=== PATIENT | female | born 1945 | race Caucasian/White ===

== ENCOUNTER 2025-03-10 08:26 | Inpatient (IN) | payer MEDICARE, SELFPAY ==
[2025-03-10] VITALS (7 sets, daily range): BP systolic 116–138; BP diastolic 64–84; PULSE 70–94; RESP 16–22; TEMP 36.1–36.9; O2SAT 96–100; BMI 19.2; BMI 21.7
--- NOTE | 2025-03-10 08:44 | PD.EDRME ---
Rapid Medical Screening Exam RME Arrival date/time: 03/10/25 08:26 80-year-old female with a history of hypertension presents to the emergency room with a chief complaint of vomiting and a loss of 25 pounds in the last month. Patient was sent over by her primary care provider. I have greeted and performed a focused initial assessment of this patient. A comprehensive ED assessment and evaluation of the patient, analysis of all test results, and completion of the medical decision making process will be conducted by additional ED providers. Chief Complaint: Nausea/Vomiting/Diarrhea Time Seen by Provider: 03/10/25 08:29 Vital signs: Vital Signs Temperature 97.9 F 03/10/25 08:38 Pulse Rate 94 03/10/25 08:38 Respiratory Rate 18 03/10/25 08:38 Blood Pressure 116/64 03/10/25 08:38 Pulse Oximetry (%) 100 03/10/25 08:38 Oxygen Delivery Method Room Air 03/10/25 08:38 Vital signs reviewed by provider: Yes
[2025-03-10] MEDS: ONDANSETRON ODT 4 MG TABRAP PO (09:04)
[2025-03-10 10:05] LABS: Basophils # (Auto) 0.1 Thou/mm3 (0.0-0.2); Basophils % (Auto) 1 % (0-2.5); Eosinophils # (Auto) 0.3 Thou/mm3 (0.0-0.5); Eosinophils % (Auto) 5 % (0-10); Hemoglobin 12.5 g/dL (12.0-16.0); Immature Granulocytes % (Auto) 0 % (0-0); Immature Granulocytes Auto 0.02 Thou/mm3 (0.00-0.00); Lymphocytes # (Auto) 2.2 Thou/mm3 (1.0-4.8); Lymphocytes % (Auto) 31 % (10-50); Mean Corpuscular HGB Conc 34.7 g/dl (31.0-37.0); Mean Corpuscular Hemoglobin 32.1 pg (25.0-35.0); Mean Corpuscular Volume 92 fL (80-100); Monocytes # (Auto) 0.4 Thou/mm3 (0.0-0.8); Monocytes % (Auto) 6 % (0-12); Neutrophils # (Auto) 4.1 Thou/mm3 (1.8-7.7); Neutrophils % (Auto) 57 % (37-80); Nucleated Red Blood Cell % 0 /100 WBC (0); Platelet Count 284 Thou/mm3 (140-440); RDW Standard Deviation 39.8 fL (36.4-46.3); White Blood Count 7.1 Thou/mm3 (3.6-11.0)
[2025-03-10 10:11] LABS: Alanine Aminotransferase 14 U/L (10-49); Albumin, Serum 4.6 gm/dL (3.4-4.8); Albumin/Globulin Ratio 1.8 (1.2-2.2); Alkaline Phosphatase 65 U/L (46-116); Amylase 27 U/L (30-118); Anion Gap 15 (7-16); Aspartate Amino Transferase 21 U/L (0-34); BUN/Creatinine Ratio 15 Ratio (12-20); Bilirubin,Total 0.6 mg/dL (0.3-1.2); Blood Urea Nitrogen 38 mg/dL (9-23); Calcium 9.7 mg/dL (8.3-10.6); Calcium (Corrected) 9.7 mg/dL (8.5-10.1); Carbon Dioxide 24.3 mMol/L (20.0-31.0); Chloride 104 mMol/L (98-107); Creatinine (Component) 2.5 mg/dL (0.6-1.3); Estimated Creatinine Clearance 15.3 mL/min (>60); Globulin 2.6 gm/dL (2.3-3.5); Glucose 110 mg/dL (74-106); Lipase 34 U/L (12-53); Osmolality,Calculated 294 (275-295); Potassium 3.3 mMol/L (3.4-5.1); Sodium 143 mMol/L (136-145); Total Protein 7.2 gm/dL (5.7-8.2); eGFR 19 See Note
--- NOTE | 2025-03-10 10:16 | XR_ITS ---
Examination: CT chest, without intravenous contrast. CT abdomen, without intravenous contrast. CT pelvis, without intravenous contrast. 2-D sagittal and coronal reconstructions. 3-D reconstructions. Date and time of exam:March 10, 2025 1244 hours INDICATIONS: Vomiting with weight loss beginning one month ago CTDI vol (mgy) 6.60 DLP (MGycm)142 Technique: Multiple CT images, 3.0 mm slice thickness, obtained chest, abdomen, pelvis, with the high-resolution 64 slice scanner.. Sagittal and coronal 2-D reconstructions are obtained. 3-D reconstructions Low dose protocols were performed. One or more of the following dose reduction techniques were used; automated exposure control, adjustment of the mA and/or KV according to patient size, use of iterative reconstruction technique. Findings: No thoracic aortic aneurysm dilatation Pulmonary artery segments are not enlarged Contrast is present in the distal esophagus with retrocardiac gastric hernia No paratracheal tracheobronchial or bronchopulmonary adenopathy COPD with areas of airspace destruction At least 6 soft noncalcified pulmonary nodules throughout the lungs, the largest 4 mm in the left lower lobe image 226 No lobar pneumonia or pulmonary edema No visualized liver or splenic lesion Small pancreatic calcifications No gallstones No adrenal mass No renal or ureteral calculi, no hydronephrosis Abdominal aortic calcification no aneurysmal dilatation Normal appendix No bowel obstruction or diverticulitis Absent uterus No pelvic mass Intact urinary bladder Severe osteopenia Transpedicular lumbar fusion L3-S1 with anatomic alignment Advanced degenerative disc disease above the fusion site, L2-L3 IMPRESSION: At least 6 soft noncalcified pulmonary nodules throughout both lungs, with this study as baseline recommend 6 month follow-up CT chest without contrast to exclude early pulmonary nodular metastatic disease No mediastinal lymphadenopathy No pneumonia, pulmonary edema or pleural disease Suspicious for reflux esophagitis Small pancreatic calcifications, seen with prior episodes of pancreatitis No renal or ureteral calculi, no hydronephrosis No CT findings of appendicitis bowel obstruction or diverticulitis Advanced degenerative disc disease L2-L3
--- NOTE | 2025-03-10 10:29 | PD.EDNV ---
Nausea/Vomit./Diarrhea-RME/HPI General Chief complaint: Nausea/Vomiting/Diarrhea Stated complaint: N/V, WEIGHT LOSS Time Seen by Provider: 03/10/25 08:29 Arrival date/time: 03/10/25 08:26 Limitations: no limitations RME / HPI RME / HPI Narrative: 03/10/25 08:26 80-year-old female with a history of hypertension presents to the emergency room with a chief complaint of vomiting and a loss of 25 pounds in the last month. Patient was sent over by her primary care provider. I have greeted and performed a focused initial assessment of this patient. A comprehensive ED assessment and evaluation of the patient, analysis of all test results, and completion of the medical decision making process will be conducted by additional ED providers. DR. DOMINGUEZ MAIN ED EVALUATION: 80 year old female with history of hypertension presents to the ED sent by PCP Dr. Santos for further evaluation of persistent nausea and vomiting. Reports that the nausea and vomiting have been ongoing for several months, initially occurring 1-2 times per day. However, in the past week states she is now vomiting day and night . States she typically will vomit several minutes after eating, regardless of the type of food, and in the past few weeks, she has been able to tolerate only Ensure and ice cream. Additionally reports unintentional weight loss of approximately 25 pounds over the last few months. Patient stated her PCP has planned for an EGD, though this has not yet been performed. Denies any associated abdominal pain, fever. She has no history of similar symptoms in the past, and there is no significant GI history. Related Data Home Medications ?Medication ?Instructions ?Recorded ?Confirmed cholecalciferol (vitamin D3) 25 1 tab PO QDAY #0 tabs 05/23/15 08/30/18 mcg (1,000 unit) capsule (Vitamin D3) conjugated estrogens 1.25 mg 1.2 tab PO QDAY ##30 05/23/15 08/30/18 tablet (Premarin) ibuprofen 800 mg tablet 1 tab PO TID ##90 05/23/15 08/30/18 lisinopril 10 mg tablet 10 tab PO QDAY ##30 05/23/15 08/30/18 vitamin E 268 mg (400 unit) capsule 1 tab PO QDAY #0 caps 05/23/15 08/30/18 aspirin 81 mg tablet,delayed 81 mg PO DAILY 08/24/18 08/30/18 release hydrocodone 7.5 mg-acetaminophen 7.5 tab PO 5 TIMES DAILY 08/24/18 08/30/18 325 mg tablet triamterene 37.5 25 mg PO DAILY 08/24/18 08/30/18 mg-hydrochlorothiazide 25 mg tablet (Maxzide-25mg) Allergies Allergy/AdvReac Type Severity Reaction Status Date / Time No Known Allergies Allergy Verified 08/30/18 11:34 Review of Systems Review of Systems Systems Reviewed: All systems reviewed, normal except as documented Past Medical History Past Medical History NEUROLOGIC: Positive Neurological Disorders and Migraine CARDIAC: Positive Edema and Hypertension REPRODUCTIVE: Positive Previous Pregnancies (1) MUSCULOSKELETAL: Positive Musculoskeletal Disorders and Arthritis PSYCHO/SOCIAL: Positive Depression and Anxiety OTHER HISTORY: Positive Falls, Chicken Pox, Measles, Mumps and Pertussis Family History FAMILY HISTORY: Positive Family Respiratory Disorders (brother-COPD) and Family Surgery (sisters-hysterectomy; sister hip replaced) Surgical History SURGICAL: Positive Tonsillectomy, Abdominal Surgery, Lumpectomy (several in s) and Hysterectomy Social History SMOKING STATUS: Current every day smoker ED Exam General Limitations: Present no limitations General appearance: Present alert and in no apparent distress Head Head exam: Present atraumatic, normocephalic and normal inspection Eye Eye exam: Present normal appearance, PERRL and EOMI ENT ENT exam: Present normal exam, normal oropharynx and mucous membranes moist Neck Neck exam: Present normal inspection, full ROM and trachea midline Chest Chest inspection: Present normal inspection and symmetric chest wall rise Respiratory Respiratory exam: Present normal lung sounds bilaterally Cardiovascular Cardiovascular exam: Present regular rate, normal rhythm and normal heart sounds Abdominal Exam Abdominal exam: Present soft, normal bowel sounds and other (Loose adipose tissue on abdomen consistent with weight loss ) Extremities Exam Extremities exam: Present normal inspection and full ROM Back Exam Back exam: Present normal inspection and full ROM Neurological Exam Neurological exam: Present alert, oriented X3 and CN II-XII intact Psychiatric Psychiatric exam: Present normal affect and normal mood Skin Skin exam: Present warm, dry, intact and normal color Course Quality Measures none Orders Category Date Time Status CT Screening NOW Care 03/10/25 09:03 Active IV [Insert IV] NOW Care 03/10/25 09:[address] chest abdomen pelvis wo Stat Exams 03/10/25 10:16 Completed Amylase Stat Lab 03/10/25 09:37 Completed CBC Stat Lab 03/10/25 09:37 Completed CMP [Comprehensive Metabolic Panel] Stat Lab 03/10/25 09:37 Completed Lipase Stat Lab 03/10/25 09:37 Completed UA [Urinalysis] Stat Lab 03/10/25 08:44 Ordered Urine Culture Stat Lab 03/10/25 08:44 Ordered Ondansetron Inj [Zofran Inj] Med 03/10/25 09:49 Discontinued 4 mg IV X1 ONE Ondansetron Odt [Zofran Odt] Med 03/10/25 08:44 Discontinued 4 mg PO X1 ONE Vital Signs Vital signs: Vital Signs Temperature 97.9 F 03/10/25 08:38 Pulse Rate 94 03/10/25 08:38 Respiratory Rate 18 03/10/25 08:38 Blood Pressure 116/64 03/10/25 08:38 Pulse Oximetry (%) 100 03/10/25 08:38 Oxygen Delivery Method Room Air 03/10/25 08:38 Pulse ox is 100% on room air which is adequate. Nausea/Vomiting/Diarrhea MDM Narrative MDM Narrative:: Yulisa Fortune am scribing for and in the presence of Dr. Dominguez. Patient data External records reviewed:: [facility] previous records Clinical information provided by:: patient Social determinants that could affect healthcare access:: none Patient has the following chronic illnesses:: Hypertension How is presenting disease/condition affected by chronic disease/condition?: uneffected by Evaluation data The following diagnostics were reviewed and interpreted by me:: lab results and radiology exam(s) Lab and/or radiology exams considered but not ordered:: None Interpretation Summary: Ordering Physician: Hadley Dominguez MD Date of Service: 03/10/25 Procedure(s): CT chest abdomen pelvis wo Accession Number(s): [id number] cc: Hadley Dominguez MD; Janes Younger MD; Zeus Santos MD~ Examination: CT chest, without intravenous contrast. CT abdomen, without intravenous contrast. CT pelvis, without intravenous contrast. 2-D sagittal and coronal reconstructions. 3-D reconstructions. Date and time of exam:March 10, 2025 1244 hours INDICATIONS: Vomiting with weight loss beginning one month ago CTDI vol (mgy) 6.60 DLP (MGycm)142 Technique: Multiple CT images, 3.0 mm slice thickness, obtained chest, abdomen, pelvis, with the high-resolution 64 slice scanner.. Sagittal and coronal 2-D reconstructions are obtained. 3-D reconstructions Low dose protocols were performed. One or more of the following dose reduction techniques were used; automated exposure control, adjustment of the mA and/or KV according to patient size, use of iterative reconstruction technique. Findings: No thoracic aortic aneurysm dilatation Pulmonary artery segments are not enlarged Contrast is present in the distal esophagus with retrocardiac gastric hernia No paratracheal tracheobronchial or bronchopulmonary adenopathy COPD with areas of airspace destruction At least 6 soft noncalcified pulmonary nodules throughout the lungs, the largest 4 mm in the left lower lobe image 226 No lobar pneumonia or pulmonary edema No visualized liver or splenic lesion Small pancreatic calcifications No gallstones No adrenal mass No renal or ureteral calculi, no hydronephrosis Abdominal aortic calcification no aneurysmal dilatation Normal appendix No bowel obstruction or diverticulitis Absent uterus No pelvic mass Intact urinary bladder Severe osteopenia Transpedicular lumbar fusion L3-S1 with anatomic alignment Advanced degenerative disc disease above the fusion site, L2-L3 IMPRESSION: At least 6 soft noncalcified pulmonary nodules throughout both lungs, with this study as baseline recommend 6 month follow-up CT chest without contrast to exclude early pulmonary nodular metastatic disease No mediastinal lymphadenopathy No pneumonia, pulmonary edema or pleural disease Suspicious for reflux esophagitis Small pancreatic calcifications, seen with prior episodes of pancreatitis No renal or ureteral calculi, no hydronephrosis No CT findings of appendicitis bowel obstruction or diverticulitis Advanced degenerative disc disease L2-L3 Dictated By: Janes Younger MD Signed By: <Electronically signed by Janes Younger MD in OV> 03/10/25 1318 Medications / Prescriptions Medications / Prescriptions considered but not ordered:: None Medication administrations:: Medication Administration History Discontinued Medications Ondansetron HCl (Ondansetron Odt 4 Mg Tabrap) 4 mg PO X1 ONE; Protocol Stop: 03/10/25 08:45 Last Admin: 03/10/25 09:04 Dose: 4 mg Documented By: VG Ondansetron HCl (Ondansetron Inj 2 Mg/Ml Inj 2 Ml) 4 mg IV X1 ONE; Protocol Stop: 03/10/25 09:50 Last Admin: 03/10/25 10:37 Dose: 4 mg Documented By: DO See above Consultations Consultation(s) initiated? (list below): Yes Consultation #1 (Physician, Specialty, Details): I spoke with system support specialist Dr. Patterson. Discussed patients PMHx, HPI, ED course, exam findings, labs, and radiology results. She agrees to consult. Consultation #2 (Physician, Specialty, Details): I spoke with resident working with Dr. Mendes regarding admission. Discussed patients PMHx, HPI, ED course, exam findings, labs, and radiology results. The hospitalist agree to accept the patient for admission. Diagnosis Nausea Differential Diagnosis: drug-induced nausea and vomiting, dehydration and other (GERD, gastritis ) Most likely diagnosis given after review of the tests above:: Renal insufficiency Nausea and vomiting Hypokalemia Unintentional weight loss Admission Indicated Admission indicated?: indicated Admission Request Was there a request for admission?: Yes Admission Attestation Admission request attestation: Discussed case with [] from Hospitalist service regarding admission. Discussed patients ED course, exam findings, labs, and radiology results. The Hospitalist [agrees,declines] to accept the patient for admission. Disposition Plan Disposition Plan: Admit Discharge Plan Plan Patient Disposition: Admit Acute Care w/in Hospital Prescriptions/Referrals Prescriptions/Med Rec: No Action ibuprofen 800 MG tablet 1 tab PO TID Qty: 90 lisinopril 10 MG tablet 10 tab PO QDAY Qty: 30 conjugated estrogens [Premarin] 1.25 MG tablet 1.2 tab PO QDAY Qty: 30 vitamin E 400 UNIT capsule 1 tab PO QDAY Qty: 0 cholecalciferol (vitamin D3) [Vitamin D3] 1,000 UNIT tablet 1 tab PO QDAY Qty: 0 aspirin 81 mg Tablet,Delayed Release (Dr/Ec) 81 mg PO DAILY hydrocodone-acetaminophen 7.5-325 mg Tablet 7.5 tab PO 5 TIMES DAILY triamterene-hydrochlorothiazid [Maxzide-25mg] 37.5-25 mg Tablet 25 mg PO DAILY Referrals: Zeus Santos MD [Primary Care Provider] - In 1 week Problem List Clinical Impression: Renal insufficiency, Hypokalemia, Nausea & vomiting, Unintentional weight loss Patient/Caregiver Discharge Instructions Print Language: Grenadian Stand Alone Forms: Jodi Award Info., Patient Portal Info Letter
[2025-03-10] MEDS: ONDANSETRON INJ 2 MG/ML INJ 2 ML 4 MG IV ×2 (10:37→20:38)
--- NOTE | 2025-03-10 14:31 | PC.NURSE ---
DR SHORT IN ROOM TO SPEAK WITH PT
--- NOTE | 2025-03-10 16:35 | PC.NURSE ---
HOSPITALIST AT BEDSIDE
--- NOTE | 2025-03-10 16:51 | PD.RESHP ---
Documentation for date of: 03/10/25 HPI History of Present Illness History of present illness: Oliva Marc is an 80-year-old female with a past medical history of hypertension, chronic pain, MDD, and on hormone replacement therapy who presents on 03/10 for intractable nausea and vomiting. Patient states that approximately 2 to 3 months ago she started to experience occasional nausea and vomiting that was not associated with any alleviating or aggravating factors, as it would happen after and in between meals but appears to be more associated with meals. It has since progressed to the point that she was previously able to tolerate solids and is now experiencing symptoms with water. Emesis is nonbloody, nonbilious, occurs multiple times a day and patient states she has lost approximately 30 pounds (150 pounds in September, now 120 pounds in February) over the course of 6 months. She denies difficulty swallowing, pain with swallowing, abdominal pain, diarrhea, constipation, dark stools, dyspepsia, or feeling that her food gets stuck after attempting to eat meals but does endorse some lightheadedness. Of note, she has been taking ibuprofen 800 mg at night for the last 4 to 5 years for back pain as her most recent back surgery was in 2018. In the ED, vital signs stable, CBC unremarkable, CHEM panel showed hypokalemia (3.3), BUN 38, creatinine 2.5, GFR 19, amylase and lipase normal. CT C/A/P: At least 6 noncalcified pulmonary nodules throughout both lungs (recommend 6-month follow-up CT chest without contrast), suspicious for reflux esophagitis, small pancreatic calcifications, advanced degenerative disc disease in L2 and L3. Admitted for management of intractable nausea and vomiting, MANAV, and GI consult for EGD. PMHx: hypertension, chronic pain, MDD, and on hormone replacement therapy Medications: Aspirin 81 mg, estradiol, lisinopril 10 mg, ibuprofen 800 mg, Xanax 0.5 mg at night FHx: Denies family history of cancer SHx: 19-wwbh-hezs smoking history now transition to vaping, denies significant alcohol consumption, denies illicit drug use PSHx: 2 back surgeries (2014, 2018), hysterectomy in 1976 Review of Systems Review of Systems Systems Reviewed: All systems reviewed, normal except as documented Exam Vital Signs Temp Pulse Resp BP Pulse Ox O2 Del Method 98.1 F 85 17 129/84 97 Room Air 03/10/25 16:19 03/10/25 16:19 03/10/25 16:19 03/10/25 16:19 03/10/25 16:19 03/10/25 16:19 Narrative Exam General: AOx3, no acute distress, able to speak full sentences HEENT: NC/AT, mucous membranes moist, bilateral sclera anicteric Cardiovascular: regular rate and rhythm, S1/S2 present, no murmurs appreciated Pulmonary: clear to auscultation bilaterally, no rales/rhonchi/wheezes Abdominal: soft, non-tender, non-distended, no rebound/guarding, normal bowel sounds present Musculoskeletal: normal ROM, no peripheral edema Skin: warm and dry, intact, no rashes Neuro: CN II-XII intact, no focal deficits Results: Labs 03/11/25 04:57 03/11/25 04:57 Labs: Short CBC 03/10/25 Range/Units 09:37 WBC 7.1 (3.6-11.0) Thou/mm3 Hgb 12.5 (12.0-16.0) g/dL Hct 36.0 (36.0-46.0) % Plt Count 284 (140-440) Thou/mm3 BMP 03/10/25 09:37 Sodium 143 Potassium 3.3 L Chloride 104 Carbon Dioxide 24.3 BUN 38 H Creatinine 2.5 H Glucose 110 H Calcium 9.7 Liver Function 03/10/25 Range/Units 09:37 Total Bilirubin 0.6 (0.3-1.2) mg/dL AST 21 (0-34) U/L ALT 14 (10-49) U/L Alkaline Phosphatase 65 (46-116) U/L Albumin 4.6 (3.4-4.8) gm/dL Quality Measures Quality Measures none Advance care planning discussed with:: patient Medications Home Medications and Allergies Home Medications ?Medication ?Instructions ?Recorded ?Confirmed ?Type cholecalciferol (vitamin D3) 25 1 tab PO QDAY #0 tabs 05/23/15 08/30/18 History mcg (1,000 unit) capsule (Vitamin D3) conjugated estrogens 1.25 mg 1.2 tab PO QDAY ##30 05/23/15 08/30/18 History tablet (Premarin) ibuprofen 800 mg tablet 1 tab PO TID ##90 05/23/15 08/30/18 History lisinopril 10 mg tablet 10 tab PO QDAY ##30 05/23/15 08/30/18 History vitamin E 268 mg (400 unit) capsule 1 tab PO QDAY #0 caps 05/23/15 08/30/18 History aspirin 81 mg tablet,delayed 81 mg PO DAILY 08/24/18 08/30/18 History release hydrocodone 7.5 mg-acetaminophen 7.5 tab PO 5 TIMES DAILY 08/24/18 08/30/18 History 325 mg tablet triamterene 37.5 25 mg PO DAILY 08/24/18 08/30/18 History mg-hydrochlorothiazide 25 mg tablet (Maxzide-25mg) alprazolam 0.5 mg tablet mg 03/10/25 History estradiol 2 mg tablet mg 03/10/25 History fluoxetine 20 mg capsule mg 03/10/25 History Allergies Allergy/AdvReac Type Severity Reaction Status Date / Time No Known Allergies Allergy Verified 08/30/18 11:34 Visit Medications Acetaminophen (Acetaminophen 325 Mg Tablet) 650 mg PO Q6H PRN PRN Reason: PAIN 1-3 OR FEVER > 100.4 Stop: 04/09/25 16:40 Heparin Sodium (Porcine) (Heparin Sod Inj 5000 Unit/Ml Vial) 5,000 unit SC BID [facility] Stop: 03/24/25 20:59 Lactated Ringer's (Lactated Ringers) 1,000 mls @ 75 mls/hr IV .[id number] [facility] Stop: 04/09/25 16:44 Ondansetron HCl (Ondansetron Inj 2 Mg/Ml Inj 2 Ml) 4 mg IV Q6H PRN; Protocol PRN Reason: NAUSEA OR VOMITING Stop: 04/09/25 16:40 Pantoprazole Sodium (Pantoprazole 40 Mg Tablet) 40 mg PO QDAY TONI Stop: 04/09/25 16:44 Potassium Chloride (Potassium Chloride 20 Meq Tabcr) 40 meq PO X1 ONE Stop: 03/10/25 16:51 Discontinued Medications Ondansetron HCl (Ondansetron Odt 4 Mg Tabrap) 4 mg PO X1 ONE; Protocol Stop: 03/10/25 08:45 Last Admin: 03/10/25 09:04 Dose: 4 mg Ondansetron HCl (Ondansetron Inj 2 Mg/Ml Inj 2 Ml) 4 mg IV X1 ONE; Protocol Stop: 03/10/25 09:50 Last Admin: 03/10/25 10:37 Dose: 4 mg Assessment & Plan Plan Oliva Marc is an 80-year-old female with a past medical history of hypertension, chronic pain, MDD, and on hormone replacement therapy who presents on 03/10 for intractable nausea and vomiting x2-3 months with associated 30 lb weight loss. Admitted for management of intractable nausea and vomiting, MANAV, and GI consult for EGD. #Intractable nausea and vomiting #? Achalasia vs peptic ulcer disease vs stricture vs Barretts vs mass effect vs gastric hernia Presents with intractable nausea and vomiting x2-3 months that progressed over time that happens mostly with meals but can happen in between. Previously able to tolerate solids but now cannot tolerate water and has had an associated 30 lb weight loss. Emesis is nonbloody, nonbilious, occurs multiple times a day. Denies difficulty swallowing, pain with swallowing, abdominal pain, diarrhea, constipation, dark stools, dyspepsia, or feeling that her food gets stuck after attempting to eat meals but does endorse some lightheadedness. Of note, she has been taking ibuprofen 800 mg at night for the last 4 to 5 years for back pain as her most recent back surgery was in 2018. ? GI consutled for endoscopy for evaluation, appreciate recommendations ? Zofran 4 mg IV every 6 hours as needed ? Pantoprazole 40 mg p.o. daily #Acute kidney injury, likely prerenal in setting of intractable N/V Admitted with creatinine of 2.5 (baseline 0.9-1.0), BUN 38, GFR 19. ? LR at 75 cc/hr ? Avoid nephrotoxic agents and renally dose medications #Hyperkalemia Likely in setting of dehydration and RAAS activation ? Repleted with 40 mEq ? Follow AM labs and replete as needed #History of hypertension ? Holding home rx of lisinopril and triamterene-HCTZ given MANAV #Chronic pain ? Holding ibuprofen given MANAV ? Oxycodone as needed #Depression ? Fluoxetine 20 mg PO daily Hospital management: Disposition: med surg, pending EGD Fluids: LR at 75 cc/hr Diet: regular, NPO after midnight Lines: PIV DVT prophylaxis: heparin SC BID GI prophylaxis: pantoprazole 40 mg PO CODE STATUS: full code ----- Plan discussed with attending physician Dr. Vaughn Pulido MD PGY-1 Internal Medicine Attending Provider Attestation/Addendum I reviewed labs, imaging, EKG, home medications and prior available records. Face to face evaluation was performed by me. I have personally examined the patient and discussed assessment and plan with the IM team. I reviewed the resident note and agree with the plan with exceptions as below. Intractable nausea and vomiting Weight loss Dehydration MANAV Hypokalemia Started IV fluids IV Zofran as needed for nausea/vomiting Management of pain as needed Monitor kidney function. Avoid nephrotoxins. Renally dosed medications Started IV Protonix Replete potassium as needed and monitor BMP Consulted GI for possible EGD
[2025-03-10 17:16] LABS: Collection Type, Urine Clean Catch
[2025-03-10 17:24] LABS: Bacteria,Urine 1+; Bilirubin,Urine Negative (Negative); Blood,Urine Negative (Negative); Clarity,Urine Turbid (Clear/Hazy); Color,Urine Yellow (Lt Yel-Yel); Glucose, Urine Negative (Negative); Ketones,Urine Trace (Negative); Leukocyte Esterase,Urine Negative (Negative); Nitrite,Urine Positive (Negative); Protein,Urine Trace (Neg - Trace); RBC,Urine 2 /hpf (0-3); Specific Gravity,Urine 1.022 (1.001-1.035); Squamous Epithelial Cell,Urine 1 /hpf (0-5); Urobilinogen,Urine Negative mg/dL (0.0-1.0); WBC,Urine 3 /hpf (0-5)
[2025-03-10 17:36] LABS: Glucose Estimated Average 111 mg/dL (80-131); Hemoglobin A1C 5.5 % Hgb (4.8-6.0)
--- NOTE | 2025-03-10 18:02 | PD.IMCONS ---
HPI Data of Consult Requesting Physician: Subhash Mendes MD Primary Care Provider: Zeus Santos MD Consult Narrative Reason for consult: Persistent nausea vomiting abnormal weight loss prerenal azotemia History of present illness: 80 years old female being evaluated at request of the internal medicine team and ER physician for persistent nausea vomiting as well as 30 pounds unintentional weight loss CT scan of the chest abdomen pelvis done without contrast showed multiple pulmonary nodules no other clear findings Patient had a BUN/creatinine of 38 and 2.5 Patient was subsequently admitted and been consulted cc:: cc: Subhash Mendes MD Past Medical History Surgical History OTHER SURGICAL HX: Essential hypertension Postmeal state unconjugated estrogens Meds Home Medications and Allergies Home Medications ?Medication ?Instructions ?Recorded ?Confirmed ?Type cholecalciferol (vitamin D3) 25 1 tab PO QDAY #0 tabs 05/23/15 08/30/18 History mcg (1,000 unit) capsule (Vitamin D3) conjugated estrogens 1.25 mg 1.2 tab PO QDAY ##30 05/23/15 08/30/18 History tablet (Premarin) ibuprofen 800 mg tablet 1 tab PO TID ##90 05/23/15 08/30/18 History lisinopril 10 mg tablet 10 tab PO QDAY ##30 05/23/15 08/30/18 History vitamin E 268 mg (400 unit) capsule 1 tab PO QDAY #0 caps 05/23/15 08/30/18 History aspirin 81 mg tablet,delayed 81 mg PO DAILY 08/24/18 08/30/18 History release hydrocodone 7.5 mg-acetaminophen 7.5 tab PO 5 TIMES DAILY 08/24/18 08/30/18 History 325 mg tablet triamterene 37.5 25 mg PO DAILY 08/24/18 08/30/18 History mg-hydrochlorothiazide 25 mg tablet (Maxzide-25mg) alprazolam 0.5 mg tablet mg 03/10/25 History estradiol 2 mg tablet mg 03/10/25 History fluoxetine 20 mg capsule mg 03/10/25 History Allergies Allergy/AdvReac Type Severity Reaction Status Date / Time No Known Allergies Allergy Verified 08/30/18 11:34 Exam Vital Signs Temp Pulse Resp BP Pulse Ox O2 Del Method 98.1 F 85 17 129/84 97 Room Air 03/10/25 16:19 03/10/25 16:19 03/10/25 16:19 03/10/25 16:19 03/10/25 16:19 03/10/25 16:19 Constitutional Comments: Chronically ill-appearing female patient Routine Respiratory Exam Comments: Normal to auscultation Routine Abdominal Exam Comments: Soft nontender Results Labs 03/10/25 09:37 03/10/25 09:37 Labs: Short CBC 03/10/25 Range/Units 09:37 WBC 7.1 (3.6-11.0) Thou/mm3 Hgb 12.5 (12.0-16.0) g/dL Hct 36.0 (36.0-46.0) % Plt Count 284 (140-440) Thou/mm3 BMP 03/10/25 09:37 Sodium 143 Potassium 3.3 L Chloride 104 Carbon Dioxide 24.3 BUN 38 H Creatinine 2.5 H Glucose 110 H Calcium 9.7 Liver Function 03/10/25 Range/Units 09:37 Total Bilirubin 0.6 (0.3-1.2) mg/dL AST 21 (0-34) U/L ALT 14 (10-49) U/L Alkaline Phosphatase 65 (46-116) U/L Albumin 4.6 (3.4-4.8) gm/dL Urine 03/10/25 Range/Units 16:50 Urine Color Yellow (Lt Yel-Yel) Urine Clarity Turbid A (Clear/Hazy) Urine pH 6.0 (5.0-7.0) Ur Specific [place] 1.022 (1.001-1.035) Urine Protein Trace (Neg - Trace) Urine Glucose (UA) Negative (Negative) Assessment and Plan Additional Assessment & Plan Additional Plan: # Persistent nausea vomiting # Abnormal weight loss # Prerenal acidemia # Abnormal CT chest abdomen pelvis showing multiple pulmonary nodules Plan Agree with hydration and IV fluids Consent obtained for fiberoptic esophagogastroduodenoscopy with possible biopsy possible therapeutic intervention under intravenous moderate sedation scheduled for tomorrow N.p.o. midnight tonight Tumor markers CEA level CA 19?9 level CA 15-3 level Ca1 2 5 level Alpha-fetoprotein level Cocci serologies QST Other medical problems include Essential hypertension Thank you very much for the opportunity to participate in the care of this patient
--- NOTE | 2025-03-10 18:10 | PC.NURSE ---
food tray at bedside
[2025-03-10] MEDS: POTASSIUM CHLORIDE 20 mEq TABCR 40 MEQ PO (18:11)
[2025-03-10] MEDS: PANTOPRAZOLE 40 MG TABLET PO (18:11)
[2025-03-10] MEDS: RINGERS LACTATED 1000 ML 1,000 ML 75 ML IV (18:11)
--- NOTE | 2025-03-10 18:30 | PC.NURSE ---
report given to Marino on med/surg floor. pt to go to room 355
--- NOTE | 2025-03-10 18:30 | PC.NURSE ---
Received report from ER nurse Symone.
--- NOTE | 2025-03-10 18:44 | PC.NURSE ---
Patient arrived via gurney from ER A&Ox4 with no s/s of distress, patient n/v, denies pain.
[2025-03-10 19:23] LABS: CA 15-3 13.4 U/mL (<32.4); Carcinoembryonic Antigen 8.7 ng/mL (0.0-5.0)
[2025-03-10] MEDS: HEPARIN SOD INJ 5000 UNIT/ML VIAL SC (20:29)
[2025-03-10] MEDS: ALPRazoLAM 0.25 MG TABLET 0.5 MG PO (20:29)
[2025-03-11] VITALS (15 sets, daily range): BP systolic 106–199; BP diastolic 47–107; PULSE 65–85; RESP 9–22; TEMP 36.2–37; O2SAT 93–98; BMI 21.7
[2025-03-11 05:34] LABS: Basophils % (Auto) 1 % (0-2.5); Eosinophils # (Auto) 0.5 Thou/mm3 (0.0-0.5); Eosinophils % (Auto) 7 % (0-10); Hematocrit 30.8 % (36.0-46.0); Hemoglobin 10.5 g/dL (12.0-16.0); Immature Granulocytes % (Auto) 0 % (0-0); Immature Granulocytes Auto 0.01 Thou/mm3 (0.00-0.00); Lymphocytes # (Auto) 2.7 Thou/mm3 (1.0-4.8); Lymphocytes % (Auto) 41 % (10-50); Mean Corpuscular HGB Conc 34.1 g/dl (31.0-37.0); Mean Corpuscular Hemoglobin 32.5 pg (25.0-35.0); Mean Corpuscular Volume 95 fL (80-100); Monocytes # (Auto) 0.5 Thou/mm3 (0.0-0.8); Monocytes % (Auto) 7 % (0-12); Neutrophils % (Auto) 45 % (37-80); Nucleated Red Blood Cell % 0 /100 WBC (0); Platelet Count 211 Thou/mm3 (140-440); RDW Standard Deviation 41.4 fL (36.4-46.3); Red Blood Count 3.23 Miln/mm3 (4.00-5.20); White Blood Count 6.6 Thou/mm3 (3.6-11.0)
[2025-03-11 05:49] LABS: Anion Gap 11 (7-16); BUN/Creatinine Ratio 16 Ratio (12-20); Blood Urea Nitrogen 34 mg/dL (9-23); Calcium 8.4 mg/dL (8.3-10.6); Carbon Dioxide 28.5 mMol/L (20.0-31.0); Cardiac Risk Estimate 4.9 RATIO (3.7-5.6); Chloride 105 mMol/L (98-107); Cholesterol 168 mg/dL (132-200); Creatinine (Component) 2.1 mg/dL (0.6-1.3); Estimated Creatinine Clearance 17.7 mL/min (>60); Glucose 96 mg/dL (74-106); HDL Cholesterol 34 mg/dL (40-60); LDL Cholesterol,Calculated 103 mg/dL (0-130); Magnesium 2.1 mg/dL (1.6-2.6); Osmolality,Calculated 294 (275-295); Phosphorous 3.9 mg/dL (2.4-5.1); Potassium 3.4 mMol/L (3.4-5.1); Sodium 144 mMol/L (136-145); Thyroid Stimulating Hormone 1.48 uIU/mL (0.55-4.78); Triglycerides 154 mg/dL (30-150); eGFR 23 See Note
[2025-03-11] MEDS: POTASSIUM CHL 10 mEq IVPB 10 MEQ/100 ML BAG 100 MEQ IV (08:11)
[2025-03-11] MEDS: RINGERS LACTATED 1000 ML 1,000 ML 75 ML IV (08:13)
--- NOTE | 2025-03-11 09:11 | ESPR_ITS ---
Documentation for date of: 03/11/25 Subjective Subjective Interval history: No acute overnight events. Seen and examined at bedside and continues to have episodes of nausea and vomiting that is nonbloody and bilious. Denies abdominal pain, fever, chills, shortness of breath, chest pain. Per patient states that she had spoken to Dr. Yang and EGD planned for this afternoon. Exam Vital Signs Temp Pulse Resp BP Pulse Ox O2 Del Method 98.2 F 67 20 128/69 98 Room Air 03/11/25 04:00 03/11/25 04:00 03/11/25 04:00 03/11/25 04:00 03/11/25 04:00 03/11/25 04:00 Narrative Exam General: AOx3, no acute distress, able to speak full sentences HEENT: NC/AT, mucous membranes moist, bilateral sclera anicteric Cardiovascular: regular rate and rhythm, S1/S2 present, no murmurs appreciated Pulmonary: clear to auscultation bilaterally, no rales/rhonchi/wheezes Abdominal: soft, non-tender, non-distended, no rebound/guarding, normal bowel sounds present Musculoskeletal: normal ROM, no peripheral edema Skin: warm and dry, intact, no rashes Neuro: CN II-XII intact, no focal deficits Objective Labs 03/12/25 06:30 03/12/25 06:30 Labs: Laboratory Results - last 24 hr 03/10/25 03/10/25 03/10/25 09:37 16:50 18:31 WBC 7.1 RBC 3.90 L Hgb 12.5 Hct 36.0 MCV 92 MCH 32.1 MCHC 34.7 RDW Std Deviation 39.8 Plt Count 284 Neut % (Auto) 57 Lymph % (Auto) 31 [place] % (Auto) 6 Eos % (Auto) 5 Baso % (Auto) 1 Neut # (Auto) 4.1 Lymph # (Auto) 2.2 [place] # (Auto) 0.4 Eos # (Auto) 0.3 Baso # (Auto) 0.1 Immature Gran # (Auto) 0.02 H Absolute Nucleated RBC 0.00 Immature Gran % 0 Nucleated RBC % 0 Sodium 143 Potassium 3.3 L Chloride 104 Carbon Dioxide 24.3 Anion Gap 15 BUN 38 H Creatinine 2.5 H Estim Creat Clear Calc 15.3 L eGFR 19 L BUN/Creatinine Ratio 15 [address]ucose [address] Glu mg/dL 111 Hemoglobin A1c 5.5 Calculated Osmolality 294 Calcium 9.7 Corrected Calcium 9.7 Phosphorus Magnesium Total Bilirubin 0.6 AST 21 ALT 14 Alkaline Phosphatase 65 Total Protein 7.2 Albumin 4.6 Globulin 2.6 Albumin/Globulin Ratio 1.8 Triglycerides Cholesterol LDL Cholesterol, Calc HDL Cholesterol Cholesterol/HDL Ratio Amylase 27 L Lipase 34 Tumor Marker AFP 4.00 Carcinoembryonic Ag 8.7 H CA 15-3 Antigen 13.4 TSH Ur Collection Type Clean Catch Urine Color Yellow Urine Clarity Turbid A Urine pH 6.0 Ur Specific [place] 1.022 Urine Protein Trace Urine Glucose (UA) Negative Urine Ketones Trace Urine Blood Negative Urine Nitrite Positive Urine Bilirubin Negative Urine Urobilinogen (Auto) Negative Ur Leukocyte Esterase Negative Urine RBC 2 Urine WBC 3 Ur Squamous Epith Cells 1 Urine Bacteria 1+ A 03/11/25 04:57 WBC 6.6 RBC 3.23 L Hgb 10.5 L D Hct 30.8 L MCV 95 MCH 32.5 MCHC 34.1 RDW Std Deviation 41.4 Plt Count 211 D Neut % (Auto) 45 Lymph % (Auto) 41 [place] % (Auto) 7 Eos % (Auto) 7 Baso % (Auto) 1 Neut # (Auto) 3.0 Lymph # (Auto) 2.7 [place] # (Auto) 0.5 Eos # (Auto) 0.5 Baso # (Auto) 0.0 Immature Gran # (Auto) 0.01 H Absolute Nucleated RBC 0.00 Immature Gran % 0 Nucleated RBC % 0 Sodium 144 Potassium 3.4 Chloride 105 Carbon Dioxide 28.5 Anion Gap 11 BUN 34 H Creatinine 2.1 H Estim Creat Clear Calc 17.7 L eGFR 23 L BUN/Creatinine Ratio [address] Glu mg/dL Hemoglobin A1c Calculated Osmolality 294 Calcium 8.4 Corrected Calcium Phosphorus 3.9 Magnesium 2.1 Total Bilirubin AST ALT Alkaline Phosphatase Total Protein Albumin Globulin Albumin/Globulin Ratio Triglycerides 154 H Cholesterol 168 LDL Cholesterol, Calc 103 HDL Cholesterol 34 L Cholesterol/HDL Ratio 4.9 Amylase Lipase Tumor Marker AFP Carcinoembryonic Ag CA 15-3 Antigen TSH 1.48 Ur Collection Type Urine Color Urine Clarity Urine pH Ur Specific [place] Urine Protein Urine Glucose (UA) Urine Ketones Urine Blood Urine Nitrite Urine Bilirubin Urine Urobilinogen (Auto) Ur Leukocyte Esterase Urine RBC Urine WBC Ur Squamous Epith Cells Urine Bacteria Quality Measures Quality Measures none Advance care planning discussed with:: patient Assessment & Plan Assessment Current Active Medications: Generic Name Dose Route Start Last Admin Trade Name Freq PRN Reason Stop Dose Admin Acetaminophen 650 mg 03/10/25 16:41 Acetaminophen 325 Mg Tablet PO 04/09/25 16:40 Q6H PRN PAIN 1-3 OR FEVER > 100.4 Alprazolam 0.5 mg 03/10/25 21:00 03/10/25 20:29 Alprazolam 0.25 Mg Tablet PO 03/15/25 20:59 0.5 mg HS TONI Administration Estradiol 2 mg 03/11/25 09:00 03/11/25 08:15 Estradiol 1 Mg Tablet PO 04/10/25 08:59 Not Given DAILY TONI Fluoxetine HCl 20 mg 03/11/25 09:00 03/11/25 08:15 Fluoxetine Hcl 10 Mg Capsule PO 04/10/25 08:59 Not Given DAILY TONI Heparin Sodium (Porcine) 5,000 unit 03/10/25 21:00 03/11/25 08:15 Heparin Sod Inj 5000 Unit/Ml Vial SC 03/24/25 20:59 Not Given BID TONI Lactated Ringer's 1,000 mls @ 75 mls/hr 03/10/25 16:45 03/11/25 08:13 Lactated Ringers IV 04/09/25 16:44 75 mls/hr .[id number] TONI Administration Potassium Chloride 10 meq in 100 mls @ 100 mls/hr 03/11/25 07:35 03/11/25 08:11 Kcl Ivpb IV 03/11/25 10:34 100 mls/hr Q1H TONI Administration Ondansetron HCl 4 mg 03/10/25 16:41 03/10/25 20:38 Ondansetron Inj 2 Mg/Ml Inj 2 Ml IV 04/09/25 16:40 4 mg Q6H PRN Administration NAUSEA OR VOMITING Protocol Oxycodone/Acetaminophen 1 tab 03/10/25 18:48 Oxycodone/Apap 5/325 Tablet PO 03/15/25 18:47 Q6HR PRN PAIN SCALE 4-10(Mod-Sev Pantoprazole Sodium 40 mg 03/10/25 16:45 03/11/25 08:15 Pantoprazole 40 Mg Tablet PO 04/09/25 16:44 Not Given QDAY TONI Plan Oliva Monico is an 80-year-old female with a past medical history of hypertension, chronic pain, MDD, and on hormone replacement therapy who presents on 03/10 for intractable nausea and vomiting x2-3 months with associated 30 lb weight loss. Admitted for management of intractable nausea and vomiting, MANAV, and GI consult for EGD. #Intractable nausea and vomiting #? Achalasia vs peptic ulcer disease vs stricture vs Barretts vs mass effect vs gastric hernia Presents with intractable nausea and vomiting x2-3 months that progressed over time that happens mostly with meals but can happen in between. Previously able to tolerate solids but now cannot tolerate water and has had an associated 30 lb weight loss. Emesis is nonbloody, nonbilious, occurs multiple times a day. Denies difficulty swallowing, pain with swallowing, abdominal pain, diarrhea, constipation, dark stools, dyspepsia, or feeling that her food gets stuck after attempting to eat meals but does endorse some lightheadedness. Of note, she has been taking ibuprofen 800 mg at night for the last 4 to 5 years for back pain as her most recent back surgery was in 2018. ? GI consulted, appreciate recommendations ? Pending endoscopy, n.p.o. ? Zofran 4 mg IV every 6 hours as needed ? Pantoprazole 40 mg p.o. daily #Acute kidney injury, likely prerenal in setting of intractable N/V, improving Admitted with creatinine of 2.5 (baseline 0.9-1.0), BUN 38, GFR 19. ? Continue LR at 75 cc/hr ? Avoid nephrotoxic agents and renally dose medications #Hyperkalemia, resolved Likely in setting of dehydration and RAAS activation ? Giving anoter 30 mEq today as patient continues to have episodes of N/V ? Follow AM labs and replete as needed #History of hypertension ? Holding home rx of lisinopril and triamterene-HCTZ given MANAV #Chronic pain ? Holding ibuprofen given MANAV ? Oxycodone as needed #Depression ? Fluoxetine 20 mg PO daily #Normocytic anemia Likely dilutional given that patient is currently on IVF and NPO. ? Continue to monitor Hospital management: Disposition: med surg, pending EGD Fluids: LR at 75 cc/hr Diet: NPO Lines: PIV DVT prophylaxis: heparin SC BID GI prophylaxis: pantoprazole 40 mg PO CODE STATUS: full code ----- Plan discussed with attending physician Dr. Vaughn Pulido MD PGY-1 Internal Medicine Attending Provider Attestation/Addendum I reviewed labs, imaging, EKG, home medications and prior available records. Face to face evaluation was performed by me. I have personally examined the patient and discussed assessment and plan with the IM team. I reviewed the resident note and agree with the plan with exceptions as below. Intractable nausea and vomiting Weight loss Dehydration MANAV Hypokalemia Started IV fluids IV Zofran as needed for nausea/vomiting Management of pain as needed Monitor kidney function. Avoid nephrotoxins. Renally dosed medications Started IV Protonix Replete potassium as needed and monitor BMP Consulted GI: Send tumor markers. Plan for EGD on 03/11
[2025-03-11] MEDS: POTASSIUM CHL 10 mEq IVPB 10 MEQ/100 ML BAG 75 MEQ IV ×2 (09:51→11:21)
--- NOTE | 2025-03-11 10:52 | PC.SS ---
This is 80-year-old, , single female who presented to the ED due to suffering from abdominal pain, nausea and vomiting. Patient appeared alert and oriented to self, place and situation. Patient was pleasant. Patient resides alone at home. Patient is independent with all her ADLs, no DME use. Patient's medical decision maker is her [id number], Harinder Ramirez. Patient's PCP is Dr. Santos. When medically clear, patient will return home, no transportation is needed.
[2025-03-11 14:55] LABS: Cocci Serology, IgM Negative (Negative)
--- NOTE | 2025-03-11 17:00 | SUR.PHASEI ---
1631 To PACU able to lift head off of pillow, following simple commands continue to monitor pt vital signs and status.
--- NOTE | 2025-03-11 17:27 | SUR.PHASEI ---
1710 Transfer to room 355 in stable condition no complaints, no s/s of distress noted.
[2025-03-11] MEDS: ALPRazoLAM 0.25 MG TABLET 0.5 MG PO (20:09)
[2025-03-11] MEDS: HEPARIN SOD INJ 5000 UNIT/ML VIAL SC (20:09)
[2025-03-12] MEDS: RINGERS LACTATED 1000 ML 1,000 ML 75 ML IV (00:36)
[2025-03-12 04:00] VITALS: BP 119/66; PULSE 68; RESP 16; TEMP 36.4; O2SAT 96
[2025-03-12] MEDS: ONDANSETRON INJ 2 MG/ML INJ 2 ML 4 MG IV ×2 (04:38→18:07)
[2025-03-12 07:03] LABS: Basophils % (Auto) 1 % (0-2.5); Eosinophils # (Auto) 0.3 Thou/mm3 (0.0-0.5); Eosinophils % (Auto) 6 % (0-10); Hematocrit 30.3 % (36.0-46.0); Hemoglobin 10.2 g/dL (12.0-16.0); Immature Granulocytes % (Auto) 0 % (0-0); Immature Granulocytes Auto 0.01 Thou/mm3 (0.00-0.00); Lymphocytes # (Auto) 2.1 Thou/mm3 (1.0-4.8); Lymphocytes % (Auto) 35 % (10-50); Mean Corpuscular HGB Conc 33.7 g/dl (31.0-37.0); Mean Corpuscular Hemoglobin 32.6 pg (25.0-35.0); Mean Corpuscular Volume 97 fL (80-100); Monocytes # (Auto) 0.5 Thou/mm3 (0.0-0.8); Monocytes % (Auto) 8 % (0-12); Neutrophils # (Auto) 3.1 Thou/mm3 (1.8-7.7); Neutrophils % (Auto) 51 % (37-80); Nucleated Red Blood Cell % 0 /100 WBC (0); Platelet Count 186 Thou/mm3 (140-440); RDW Standard Deviation 41.5 fL (36.4-46.3); Red Blood Count 3.13 Miln/mm3 (4.00-5.20); White Blood Count 6.1 Thou/mm3 (3.6-11.0)
[2025-03-12 07:29] LABS: Anion Gap 10 (7-16); BUN/Creatinine Ratio 16 Ratio (12-20); Blood Urea Nitrogen 27 mg/dL (9-23); Calcium 8.5 mg/dL (8.3-10.6); Carbon Dioxide 27.7 mMol/L (20.0-31.0); Chloride 105 mMol/L (98-107); Creatinine (Component) 1.7 mg/dL (0.6-1.3); Estimated Creatinine Clearance 20.9 mL/min (>60); Glucose 88 mg/dL (74-106); Magnesium 1.9 mg/dL (1.6-2.6); Osmolality,Calculated 289 (275-295); Phosphorous 3.2 mg/dL (2.4-5.1); Potassium 4.1 mMol/L (3.4-5.1); Sodium 143 mMol/L (136-145); eGFR 30 See Note
[2025-03-12 08:00] VITALS: BP 123/67; PULSE 89; RESP 17; TEMP 36.3; O2SAT 93
[2025-03-12] MEDS: PANTOPRAZOLE 40 MG TABLET PO (08:20)
[2025-03-12] MEDS: FLUoxetine HCL 10 MG CAPSULE 20 MG PO (08:20)
[2025-03-12] MEDS: estradioL 1 MG TABLET 2 MG PO (08:21)
[2025-03-12] MEDS: HEPARIN SOD INJ 5000 UNIT/ML VIAL SC ×2 (08:22→20:14)
--- NOTE | 2025-03-12 10:20 | ESPR_ITS ---
Documentation for date of: 03/12/25 Subjective Subjective Interval history: No acute overnight events noted. Seen and examined at bedside and patient continues to endorse nausea and vomiting and explained to her that we will give her some time and see if symptoms improve after EGD. EGD showed 1 malignant appearing mass that was biopsied and oncology consulted. Also found to have intrinsic and severe esophageal stenosis that was dilated. Will keep patient an additional day given elevated but improving renal function and pending oncology recs. Exam Vital Signs Temp Pulse Resp BP Pulse Ox O2 Del Method O2 Flow Rate 97.4 F 89 17 123/67 93 L Room Air 2 03/12/25 08:00 03/12/25 08:00 03/12/25 08:00 03/12/25 08:00 03/12/25 08:00 03/12/25 08:00 03/11/25 16:55 Narrative Exam General: AOx3, no acute distress, able to speak full sentences HEENT: NC/AT, mucous membranes moist, bilateral sclera anicteric Cardiovascular: regular rate and rhythm, S1/S2 present, no murmurs appreciated Pulmonary: clear to auscultation bilaterally, no rales/rhonchi/wheezes Abdominal: soft, non-tender, non-distended, no rebound/guarding, normal bowel sounds present Musculoskeletal: normal ROM, no peripheral edema Skin: warm and dry, intact, no rashes Neuro: CN II-XII intact, no focal deficits Objective Labs 03/13/25 05:12 03/13/25 05:12 Labs: Laboratory Results - last 24 hr 03/10/25 03/12/25 18:31 06:30 WBC 6.1 RBC 3.13 L Hgb 10.2 L Hct 30.3 L MCV 97 MCH 32.6 MCHC 33.7 RDW Std Deviation 41.5 Plt Count 186 Neut % (Auto) 51 Lymph % (Auto) 35 [place] % (Auto) 8 Eos % (Auto) 6 Baso % (Auto) 1 Neut # (Auto) 3.1 Lymph # (Auto) 2.1 [place] # (Auto) 0.5 Eos # (Auto) 0.3 Baso # (Auto) 0.0 Immature Gran # (Auto) 0.01 H Absolute Nucleated RBC 0.00 Immature Gran % 0 Nucleated RBC % 0 Sodium 143 Potassium 4.1 D Chloride 105 Carbon Dioxide 27.7 Anion Gap 10 BUN 27 H Creatinine 1.7 H Estim Creat Clear Calc 20.9 L eGFR 30 L BUN/Creatinine Ratio 16 Glucose 88 Calculated Osmolality 289 Calcium 8.5 Phosphorus 3.2 Magnesium 1.9 Coccidioides IgM Ab Negative Quality Measures Quality Measures none Advance care planning discussed with:: patient Assessment & Plan Assessment Current Active Medications: Generic Name Dose Route Start Last Admin Trade Name Freq PRN Reason Stop Dose Admin Acetaminophen 650 mg 03/10/25 16:41 Acetaminophen 325 Mg Tablet PO 04/09/25 16:40 Q6H PRN PAIN 1-3 OR FEVER > 100.4 Alprazolam 0.5 mg 03/10/25 21:00 03/11/25 20:09 Alprazolam 0.25 Mg Tablet PO 03/15/25 20:59 0.5 mg HS TONI Administration Estradiol 2 mg 03/11/25 09:00 03/12/25 08:21 Estradiol 1 Mg Tablet PO 04/10/25 08:59 2 mg DAILY TONI Administration Fluoxetine HCl 20 mg 03/11/25 09:00 03/12/25 08:20 Fluoxetine Hcl 10 Mg Capsule PO 04/10/25 08:59 20 mg DAILY TONI Administration Heparin Sodium (Porcine) 5,000 unit 03/10/25 21:00 03/12/25 08:22 Heparin Sod Inj 5000 Unit/Ml Vial SC 03/24/25 20:59 5,000 unit BID TONI Administration Lactated Ringer's 1,000 mls @ 90 mls/hr 03/12/25 10:12 Lactated Ringers IV 04/11/25 10:11 .[id number] TONI Ondansetron HCl 4 mg 03/10/25 16:41 03/12/25 04:38 Ondansetron Inj 2 Mg/Ml Inj 2 Ml IV 04/09/25 16:40 4 mg Q6H PRN Administration NAUSEA OR VOMITING Protocol Oxycodone/Acetaminophen 1 tab 03/10/25 18:48 Oxycodone/Apap 5/325 Tablet PO 03/15/25 18:47 Q6HR PRN PAIN SCALE 4-10(Mod-Sev Pantoprazole Sodium 40 mg 03/10/25 16:45 03/12/25 08:20 Pantoprazole 40 Mg Tablet PO 04/09/25 16:44 40 mg QDAY TONI Administration Plan Oliva Marc is an 80-year-old female with a past medical history of hypertension, chronic pain, MDD, and on hormone replacement therapy who presents on 03/10 for intractable nausea and vomiting x2-3 months with associated 30 lb weight loss. Admitted for management of intractable nausea and vomiting, MANAV, and GI consult for EGD. #Intractable nausea and vomiting #Esophageal mass #Esophageal stenosis Presents with intractable nausea and vomiting x2-3 months that progressed over time that happens mostly with meals but can happen in between. Previously able to tolerate solids but now cannot tolerate water and has had an associated 30 lb weight loss. Emesis is nonbloody, nonbilious, occurs multiple times a day. Denies difficulty swallowing, pain with swallowing, abdominal pain, diarrhea, constipation, dark stools, dyspepsia, or feeling that her food gets stuck after attempting to eat meals but does endorse some lightheadedness. EGD on 03/11 showed malignant-appearing lesion that was biopsied and significant esophageal stenosis (3 mm) that was dilated. ? GI consulted, appreciate recommendations ? Pending biopsy results, anticipate Thursday or Thursday ? Follow-up outpatient, patient will likely need additional dilatation given severe stenosis ? Zofran 4 mg IV every 6 hours as needed ? Pantoprazole 40 mg p.o. daily ? Oncology consulted, appreciate recommendations #Acute kidney injury, likely prerenal in setting of intractable N/V, improving Admitted with creatinine of 2.5 (baseline 0.9-1.0), BUN 38, GFR 19. ? Continue LR at 90 cc/hr ? Avoid nephrotoxic agents and renally dose medications #Hyperkalemia, resolved Likely in setting of dehydration and RAAS activation ? Follow AM labs and replete as needed #History of hypertension ? Holding home rx of lisinopril and triamterene-HCTZ given MANAV #Chronic pain ? Holding ibuprofen given MANAV ? Oxycodone as needed #Depression ? Fluoxetine 20 mg PO daily #Normocytic anemia Likely dilutional given that patient is currently on IVF and NPO. ? Continue to monitor Hospital management: Disposition: med surg, biopsy results and oncology recs Fluids: LR at 90 cc/hr Diet: full liquid diet Lines: PIV DVT prophylaxis: heparin SC BID GI prophylaxis: pantoprazole 40 mg PO CODE STATUS: full code ----- Plan discussed with attending physician Dr. Vaughn Pulido MD PGY-1 Internal Medicine Attending Provider Attestation/Addendum I reviewed labs, imaging, EKG, home medications and prior available records. Face to face evaluation was performed by me. I have personally examined the patient and discussed assessment and plan with the IM team. I reviewed the resident note and agree with the plan with exceptions as below. Intractable nausea and vomiting Weight loss Dehydration MANAV Hypokalemia Consulted GI: Sent tumor markers. Status post EGD on 03/11 that showed gastric mass. Status post dilation. Biopsy taken. Consulted oncology. IV Zofran as needed for nausea/vomiting Management of pain as needed Monitor kidney function: Creatinine improved. Avoid nephrotoxins. Renally dosed medications Continue Protonix Replete potassium as needed and monitor BMP
[2025-03-12 12:00] VITALS: BP 118/62; PULSE 64; RESP 17; TEMP 36.4; O2SAT 96
[2025-03-12] MEDS: RINGERS LACTATED 1000 ML 1,000 ML 90 ML IV (14:21)
[2025-03-12 16:00] VITALS: BP 121/67; PULSE 64; RESP 18; TEMP 36.3; O2SAT 96
--- NOTE | 2025-03-12 19:28 | PD.IMPROG ---
Documentation for date of: 03/12/25 Subjective Subjective Interval history: Case discussed with the internal medicine team. 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 Exam Vital Signs Temp Pulse Resp BP Pulse Ox O2 Del Method O2 Flow Rate 97.4 F 64 18 121/67 96 Room Air 2 03/12/25 16:00 03/12/25 16:00 03/12/25 16:00 03/12/25 16:00 03/12/25 16:00 03/12/25 16:00 03/11/25 16:55 Objective Labs 03/12/25 06:30 03/12/25 06:30 Labs: Laboratory Results - last 24 hr 03/12/25 06:30 WBC 6.1 RBC 3.13 L Hgb 10.2 L Hct 30.3 L MCV 97 MCH 32.6 MCHC 33.7 RDW Std Deviation 41.5 Plt Count 186 Neut % (Auto) 51 Lymph % (Auto) 35 [place] % (Auto) 8 Eos % (Auto) 6 Baso % (Auto) 1 Neut # (Auto) 3.1 Lymph # (Auto) 2.1 [place] # (Auto) 0.5 Eos # (Auto) 0.3 Baso # (Auto) 0.0 Immature Gran # (Auto) 0.01 H Absolute Nucleated RBC 0.00 Immature Gran % 0 Nucleated RBC % 0 Sodium 143 Potassium 4.1 D Chloride 105 Carbon Dioxide 27.7 Anion Gap 10 BUN 27 H Creatinine 1.7 H Estim Creat Clear Calc 20.9 L eGFR 30 L BUN/Creatinine Ratio 16 Glucose 88 Calculated Osmolality 289 Calcium 8.5 Phosphorus 3.2 Magnesium 1.9 Impressions 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 midnight tonight Tumor markers CEA level CA 19?9 level CA 15-3 level Ca1 2 5 level Alpha-fetoprotein level Cocci serologies QST Other medical problems include Essential hypertension Thank you very much for the opportunity to participate in the care of this patient Time Spent With Patient Time: Total time spent is greater than 50% in coordination of care (as documented) at patient's floor/unit and/or counseling patient:
[2025-03-12 20:00] VITALS: BP 129/64; PULSE 70; RESP 18; TEMP 36.7; O2SAT 93
[2025-03-12] MEDS: ALPRazoLAM 0.25 MG TABLET 0.5 MG PO (20:14)
[2025-03-13] VITALS: BP 121/68; PULSE 89; RESP 16; TEMP 36.6; O2SAT 97
[2025-03-13] MEDS: RINGERS LACTATED 1000 ML 1,000 ML 90 ML IV (02:08)
[2025-03-13 04:00] VITALS: BP 133/69; PULSE 68; RESP 15; TEMP 36.6; O2SAT 96
[2025-03-13 06:12] LABS: Basophils % (Auto) 1 % (0-2.5); Eosinophils # (Auto) 0.4 Thou/mm3 (0.0-0.5); Eosinophils % (Auto) 7 % (0-10); Hematocrit 30.3 % (36.0-46.0); Immature Granulocytes % (Auto) 0 % (0-0); Immature Granulocytes Auto 0.01 Thou/mm3 (0.00-0.00); Lymphocytes # (Auto) 2.1 Thou/mm3 (1.0-4.8); Lymphocytes % (Auto) 38 % (10-50); Mean Corpuscular Hemoglobin 31.9 pg (25.0-35.0); Mean Corpuscular Volume 97 fL (80-100); Monocytes # (Auto) 0.4 Thou/mm3 (0.0-0.8); Monocytes % (Auto) 8 % (0-12); Neutrophils # (Auto) 2.7 Thou/mm3 (1.8-7.7); Neutrophils % (Auto) 47 % (37-80); Nucleated Red Blood Cell % 0 /100 WBC (0); Platelet Count 187 Thou/mm3 (140-440); Red Blood Count 3.13 Miln/mm3 (4.00-5.20); White Blood Count 5.6 Thou/mm3 (3.6-11.0)
[2025-03-13 06:24] LABS: Anion Gap 7 (7-16); BUN/Creatinine Ratio 13 Ratio (12-20); Blood Urea Nitrogen 18 mg/dL (9-23); Calcium 8.4 mg/dL (8.3-10.6); Carbon Dioxide 28.9 mMol/L (20.0-31.0); Chloride 105 mMol/L (98-107); Creatinine (Component) 1.4 mg/dL (0.6-1.3); Estimated Creatinine Clearance 25.3 mL/min (>60); Glucose 90 mg/dL (74-106); Magnesium 1.7 mg/dL (1.6-2.6); Osmolality,Calculated 283 (275-295); Phosphorous 3.3 mg/dL (2.4-5.1); Potassium 3.8 mMol/L (3.4-5.1); Sodium 141 mMol/L (136-145); eGFR 38 See Note
--- NOTE | 2025-03-13 07:49 | ESCONSULT_ITS ---
HPI Data of Consult Consult date: 03/13/25 Requesting Physician: Subhash Mendes MD Primary Care Provider: Zeus Santos MD Consult Narrative Reason for consult: Suspected malignancy History of present illness: 80-year-old lady admitted with symptoms of nausea vomiting electrolyte imbalance, CT chest abdomen pelvis on March 10, 2025 showing multiple soft noncalcified pulmonary nodules both lungs. There were small pancreatic calcifications and advanced generative disc disease lumbar regions. Evaluated with Dr. 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 This was sent for pathology. A.m. labs reveal anemia of 10.0 hemoglobin, elevated creatinine of 1.4. Serology for cocci and TB test pending. AFP CA 15-3 Normal CEA mildly elevated 8.7. CA 19?9 pending. Patient now referred for oncological consultation. cc:: cc: Subhash Mendes MD Past Medical History Family History OTHER FAMILY HX: Denies family history of cancer Surgical History OTHER SURGICAL HX: Prior hysterectomy 2 back surgeries Social History SOCIAL: [id number] history of smoking. Past Medical History Comments PMH COMMENT: History of depression chronic pain hypertension Meds Home Medications and Allergies Home Medications ?Medication ?Instructions ?Recorded ?Confirmed ?Type cholecalciferol (vitamin D3) 25 1 tab PO QDAY #0 tabs 05/23/15 08/30/18 History mcg (1,000 unit) capsule (Vitamin D3) conjugated estrogens 1.25 mg 1.2 tab PO QDAY ##30 05/0908/30/18 History tablet (Premarin) ibuprofen 800 mg tablet 1 tab PO TID ##90 05/23/15 1 History lisinopril 10 mg tablet 10 tab PO QDAY ##30 05/23/15 08/30/18 History vitamin E 268 mg (400 unit) capsule 1 tab PO QDAY #0 c aps 05/23/15 08/30/18 History aspirin 81 mg tablet,delayed 81 mg PO DAILY 08/24/18 1 History release hydrocodone 7.5 mg-acetaminophen 7.5 tab PO 5 TIMES DA JIMMIE 08/24/18 08/30/18 History 325 mg tablet triamterene 37.5 25 mg PO DAILY 08/24/1808/10 History mg-hydrochlorothiazide 25 mg tablet (Maxzide-25mg) alprazolam 0.5 mg tablet mg 03/10/25 History estradiol 2 mg tablet mg 03/10/25 History fluoxetine 20 mg capsule mg 03/10/25 History Allergies Allergy/AdvReac Type Severity Reaction Status Date / Time No Known Allergies Allergy Verified 08/30/18 11:34 Exam Vital Signs Temp Pulse Resp BP Pulse Ox O2 Del Method O2 Flow Rate 97.8 F 68 15 133/69 H 96 Room Air 2 03/13/25 04:00 03/13/25 04:00 03/13/25 04:00 03/13/25 04:00 03/13/25 04:00 03/13/25 04:00 03/11/25 16:55 Narrative Exam Appearing comfortable to [facility] in no acute distress Results Labs 03/13/25 05:12 03/13/25 05:12 Labs: Short CBC 03/13/25 Range/Units 05:12 WBC 5.6 (3.6-11.0) Thou/mm3 Hgb 10.0 L (12.0-16.0) g/dL Hct 30.3 L (36.0-46.0) % Plt Count 187 (140-440) Thou/mm3 BMP 03/13/25 05:12 Sodium 141 Potassium 3.8 Chloride 105 Carbon Dioxide 28.9 BUN 18 Creatinine 1.4 H Glucose 90 Calcium 8.4 Assessment and Plan Additional Assessment & Plan Additional Plan: 1. GE junction mass noted with stenosis. Awaiting biopsy results. Repeat endoscopy and dilation scheduled. 2. Will follow. Thank you for allowing me to evaluate this patient.
[2025-03-13 08:00] VITALS: BP 138/78; PULSE 63; RESP 14; TEMP 36.6; O2SAT 97
[2025-03-13] MEDS: PANTOPRAZOLE 40 MG TABLET PO (08:32)
[2025-03-13] MEDS: HEPARIN SOD INJ 5000 UNIT/ML VIAL SC (08:32)
[2025-03-13] MEDS: ONDANSETRON INJ 2 MG/ML INJ 2 ML 4 MG IV (08:33)
[2025-03-13] MEDS: estradioL 1 MG TABLET 2 MG PO (08:35)
[2025-03-13] MEDS: FLUoxetine HCL 10 MG CAPSULE 20 MG PO (08:35)
--- NOTE | 2025-03-13 09:13 | PC.SS ---
SS follow up note; Possible repeat endoscopy, if not patient will have it outpatient. Patient will discharge back home when medically cleared.
--- NOTE | 2025-03-13 11:08 | PD.RESPRO ---
Documentation for date of: 03/13/25 Subjective Subjective Interval history: Overnight, no acute events reported. Patient has consumed 25% of her meals since last night. Endoscopy showed severe stenosis with GE junction mass, with biopsy send. Hemoglobin is stable at 10, creatinine has improved to 1.[address] Arenas, oncology recommended to follow-up outpatient, as patient is stable and tolerating diet well. Will reach out to Dr. Yang, GI on recommendations as to transitioning to solids and continue with endoscopy later in an inpatient or outpatient setting. Patient is eager to return home to return to her daily routine. Patient states that her nausea is still present after meals, however is controlled with antiemetics given in the hospital. Exam Vital Signs Temp Pulse Resp BP Pulse Ox O2 Del Method O2 Flow Rate 97.9 F 63 14 138/78 H 97 Room Air 2 03/13/25 08:00 03/13/25 08:00 03/13/25 08:00 03/13/25 08:00 03/13/25 08:00 03/13/25 08:00 03/11/25 16:55 Narrative Exam General Appearance: Pt in no apparent distress, laying comfortably in bed. HEENT: NC/AT, no scleral icterus, no conjunctival pallor, MMM Lungs: CTAB, no wheezes or crackles appreciated CVS: RRR, S1/S2 heard, no murmurs or rubs appreciated ABD: Soft, non-tender, non-distended, BS + in all 4 quadrants EXT: no deformity/edema/lesions/cyanosis/clubbing, radial pulses 2+ BL, DP pulses 2 + BL SKIN: Skin exam normal without any rashes. Neuro: A&O x 3. No gross neurological deficits. Motor and sensory grossly intact in B/L UL and LL. Psych: Appropriate mood and affect Objective Labs 03/13/25 05:12 03/13/25 05:12 Labs: Laboratory Results - last 24 hr 03/13/25 05:12 WBC 5.6 RBC 3.13 L Hgb 10.0 L Hct 30.3 L MCV 97 MCH 31.9 MCHC 33.0 RDW Std Deviation 41.0 Plt Count 187 Neut % (Auto) 47 Lymph % (Auto) 38 [place] % (Auto) 8 Eos % (Auto) 7 Baso % (Auto) 1 Neut # (Auto) 2.7 Lymph # (Auto) 2.1 [place] # (Auto) 0.4 Eos # (Auto) 0.4 Baso # (Auto) 0.0 Immature Gran # (Auto) 0.01 H Absolute Nucleated RBC 0.00 Immature Gran % 0 Nucleated RBC % 0 Sodium 141 Potassium 3.8 Chloride 105 Carbon Dioxide 28.9 Anion Gap 7 BUN 18 Creatinine 1.4 H Estim Creat Clear Calc 25.3 L eGFR 38 L BUN/Creatinine Ratio 13 Glucose 90 Calculated Osmolality 283 Calcium 8.4 Phosphorus 3.3 Magnesium 1.7 Quality Measures Quality Measures none Advance care planning discussed with:: patient Assessment & Plan Assessment Current Active Medications: Generic Name Dose Route Start Last Admin Trade Name Freq PRN Reason Stop Dose Admin Acetaminophen 650 mg 03/10/25 16:41 Acetaminophen 325 Mg Tablet PO 04/09/25 16:40 Q6H PRN PAIN 1-3 OR FEVER > 100.4 Alprazolam 0.5 mg 03/10/25 21:00 03/12/25 20:14 Alprazolam 0.25 Mg Tablet PO 03/15/25 20:59 0.5 mg HS TONI Administration Estradiol 2 mg 03/11/25 09:00 03/13/25 08:35 Estradiol 1 Mg Tablet PO 04/10/25 08:59 2 mg DAILY TONI Administration Fluoxetine HCl 20 mg 03/11/25 09:00 03/13/25 08:35 Fluoxetine Hcl 10 Mg Capsule PO 04/10/25 08:59 20 mg DAILY TONI Administration Heparin Sodium (Porcine) 5,000 unit 03/10/25 21:00 03/13/25 08:32 Heparin Sod Inj 5000 Unit/Ml Vial SC 03/24/25 20:59 5,000 unit BID TONI Administration Lactated Ringer's 1,000 mls @ 90 mls/hr 03/12/25 10:12 03/13/25 02:08 Lactated Ringers IV 04/11/25 10:11 90 mls/hr .[id number] TONI Administration Ondansetron HCl 4 mg 03/10/25 16:41 03/13/25 08:33 Ondansetron Inj 2 Mg/Ml Inj 2 Ml IV 04/09/25 16:40 4 mg Q6H PRN Administration NAUSEA OR VOMITING Protocol Oxycodone/Acetaminophen 1 tab 03/10/25 18:48 Oxycodone/Apap 5/325 Tablet PO 03/15/25 18:47 Q6HR PRN PAIN SCALE 4-10(Mod-Sev Pantoprazole Sodium 40 mg 03/10/25 16:45 03/13/25 08:32 Pantoprazole 40 Mg Tablet PO 04/09/25 16:44 40 mg QDAY TONI Administration Plan Oliva Marc is an 80-year-old female with a past medical history of hypertension, chronic pain, MDD, and on hormone replacement therapy who presents on 03/10 for intractable nausea and vomiting x2-3 months with associated 30 lb weight loss. Admitted for management of intractable nausea and vomiting, MANAV, and GI consult for EGD. #Intractable nausea and vomiting #Esophageal mass #Esophageal stenosis Presents with intractable nausea and vomiting x2-3 months that progressed over time that happens mostly with meals but can happen in between. Previously able to tolerate solids but now cannot tolerate water and has had an associated 30 lb weight loss. Emesis is nonbloody, nonbilious, occurs multiple times a day. Denies difficulty swallowing, pain with swallowing, abdominal pain, diarrhea, constipation, dark stools, dyspepsia, or feeling that her food gets stuck after attempting to eat meals but does endorse some lightheadedness. EGD on 03/11 showed malignant-appearing lesion that was biopsied and significant esophageal stenosis (3 mm) that was dilated. Will reach out to Dr. Yang as to if patient needs EGD again inpatient or can follow-up outpatient ? GI consulted, appreciate recommendations ? Pending biopsy results, anticipate Thursday or Thursday ? Follow-up outpatient, patient will likely need additional dilatation given severe stenosis ? Zofran 4 mg IV every 6 hours as needed ? Pantoprazole 40 mg p.o. daily ? Oncology consulted, recommended to follow-up outpatient with biopsy results #Acute kidney injury, likely prerenal in setting of intractable N/V, improving Admitted with creatinine of 2.5 (baseline 0.9-1.0), BUN 38, GFR 19. ? Will hold patient's IV LR at this time due to patient's slow improvement in tolerating diet ? Avoid nephrotoxic agents and renally dose medications #Hyperkalemia, resolved Likely in setting of dehydration and RAAS activation ? Follow AM labs and replete as needed #History of hypertension ? Holding home rx of lisinopril and triamterene-HCTZ given MANAV #Chronic pain ? Holding ibuprofen given MANAV ? Oxycodone as needed #Depression ? Fluoxetine 20 mg PO daily #Normocytic anemia Likely dilutional given that patient is currently on IVF and NPO. ? Continue to monitor Hospital management: Disposition: med surg, biopsy results and GI futher recs Fluids: LR at 90 cc/hr, will hold for now Diet: full liquid diet Lines: PIV DVT prophylaxis: heparin SC BID GI prophylaxis: pantoprazole 40 mg PO CODE STATUS: full code Patient's plan and care discussed with my attending, Dr. Vaughn Bartholomew MD PGY-2 Attending Provider Attestation/Addendum I reviewed labs, imaging, EKG, home medications and prior available records. Face to face evaluation was performed by me. I have personally examined the patient and discussed assessment and plan with the IM team. I reviewed the resident note and agree with the plan with exceptions as below. Intractable nausea and vomiting Weight loss Dehydration MANAV Hypokalemia Consulted GI: Sent tumor markers. Status post EGD on 03/11 that showed gastric mass. Status post dilation. Biopsy taken. Consulted oncology: Recommended to follow-up the biopsy results before any intervention She is not tolerating her diet well. Recommend small frequent meals Discussed with GI: She may need another EGD for another dilation but that will depend on the results of the biopsy. Okay to discharge Monitor kidney function: Creatinine improved. Avoid nephrotoxins. Renally dosed medications Continue Protonix Follow-up BMP in 1 week Time spent is 40 minutes. More than 50% of the time was spent on patient education and coordination of care.
[2025-03-13 11:41] VITALS: BP 126/69; PULSE 65; RESP 16; TEMP 36.6; O2SAT 97
[2025-03-13 15:44] VITALS: BP 134/72; PULSE 80; RESP 17; TEMP 36.6; O2SAT 95
--- NOTE | 2025-03-13 16:27 | PC.PT ---
PT eval only. Patient is xI. Patient is safe to ambulate to the bathroom and in the halls with no DME or staff assistance. RN made aware.
--- NOTE | 2025-03-13 16:47 | PD.RESDS ---
Planned Discharge Date 03/13/25 DS: Providers Provider Date of admission: 03/10/25 16:41 Primary care physician: Zeus Santos MD Admitting Provider: Subhash Mendes MD Attending Provider on Admission: Subhash Mendes MD Consults: 03/10/25 16:49 Consult to Gastroenterology Routine Comment: Consulting Provider: Chiqui Yang Instructions: Intractable N/V, 30 lb weight loss 6 months, progressive intolerance of solids and now liquids 03/12/25 09:18 Consult to Oncology Routine Comment: Suspicious mass seen on EGD s/p biopsy Consulting Provider: Patricio Arenas 03/13/25 12:24 Referral Physical Therapy Stat Comment: Physician Instructions: Attending Provider on DC: Haritha Bartholomew MD Discharging Provider: Haritha Bartholomew MD DS: Diagnosis Problem List Completed Was Problem List Reviewed/Reconciled?: Yes Hospital Course Hospital Course Hospital course: Oliva Marc is an 80-year-old female with a past medical history of hypertension, chronic pain, MDD, and on hormone replacement therapy who presents on 03/10 for intractable nausea and vomiting x2-3 months with associated 30 lb weight loss and admitted for management of intractable nausea and vomiting and MANAV. GI was consulted and EGD was done which showed a malignant-appearing lesion that was biopsied and significant esophageal stenosis (3 mm) that was dilated. Throughout hospital stay, patient's n/v improved with anti-emetics, MANAV improved with IVF, and was able to tolerate diet s/p EGD procedure. Patient would most likely have to follow up outpatient with GI for biopsy results and repeat EGD for her severe stenosis and oncology. Please follow-up with primary care physician within 1 week upon discharge. Please follow-up with your oncologist within 1 to 2 weeks upon discharge Please follow-up with GI specialist within 1 to 2 weeks upon discharge Recommend taking 6 smaller volume meals per day to make it easier as he may have some difficulty given that you may need an additional esophageal dilation. Please come back to the ER if symptoms persist or worsen. Hospital discharge diagnoses treated during hospital stay: #Intractable nausea and vomiting #Esophageal mass #Esophageal stenosis #Acute kidney injury, likely prerenal in setting of intractable N/V, improving #Hyperkalemia, resolved #History of hypertension #Chronic pain #Depression #Normocytic anemia Patient's plan and care discussed with my attending, Dr. Vaughn Bartholomew MD PGY-2 Status at Discharge Cognitive/behavioral status at discharge: stable Time Spent with Patient Time attestation: Total time spent providing and/or coordinating discharge services: 35 Time spent: Greater than 30 minutes Exam Vital Signs Temp Pulse Resp BP Pulse Ox O2 Del Method O2 Flow Rate 97.8 F 80 17 134/72 H 95 Room Air 2 03/13/25 15:44 03/13/25 15:44 03/13/25 15:44 03/13/25 15:44 03/13/25 15:44 03/13/25 11:41 03/11/25 16:55 Narrative Exam General Appearance: Pt in no apparent distress, laying comfortably in bed. HEENT: NC/AT, no scleral icterus, no conjunctival pallor, MMM Lungs: CTAB, no wheezes or crackles appreciated CVS: RRR, S1/S2 heard, no murmurs or rubs appreciated ABD: Soft, non-tender, non-distended, BS + in all 4 quadrants EXT: no deformity/edema/lesions/cyanosis/clubbing, radial pulses 2+ BL, DP pulses 2 + BL SKIN: Skin exam normal without any rashes. Neuro: A&O x 3. No gross neurological deficits. Motor and sensory grossly intact in B/L UL and LL. Psych: Appropriate mood and affect Discharge Plan Plan Patient Disposition: HOME (Self Care) Care Plan Goals: Please follow-up with primary care physician within 1 week upon discharge. Please follow-up with your oncologist within 1 to 2 weeks upon discharge Please follow-up with GI specialist within 1 to 2 weeks upon discharge Recommend taking 6 smaller volume meals per day to make it easier as he may have some difficulty given that you may need an additional esophageal dilation. Please come back to the ER if symptoms persist or worsen. Prescriptions/Referrals Prescriptions/Med Rec: New ondansetron 4 mg tablet,disintegrating 4 mg PO Q6H Qty: 60 0RF Continued lisinopril 10 MG tablet 10 tab PO QDAY Qty: 30 conjugated estrogens [Premarin] 1.25 MG tablet 1.2 tab PO QDAY Qty: 30 vitamin E 400 UNIT capsule 1 tab PO QDAY Qty: 0 cholecalciferol (vitamin D3) [Vitamin D3] 1,000 UNIT tablet 1 tab PO QDAY Qty: 0 aspirin 81 mg Tablet,Delayed Release (Dr/Ec) 81 mg PO DAILY hydrocodone-acetaminophen 7.5-325 mg Tablet 7.5 tab PO 5 TIMES DAILY alprazolam 0.5 mg tablet Patient Comments: TAKE 1 TABLET BY MOUTH EVERYDAY AT BEDTIME estradiol 2 mg tablet fluoxetine 20 mg capsule Held ibuprofen 800 MG tablet 1 tab PO TID Qty: 90 Hold Instructions: Resume on 03/20/25. Take as needed for pain, hold until you see your PCP triamterene-hydrochlorothiazid [Maxzide-25mg] 37.5-25 mg Tablet 25 mg PO DAILY Hold Instructions: Resume on 03/20/25. Please hold until you see your PCP Referrals: Patricio Arenas MD [Physician] - Chiqui Yang MD [Physician] - Zeus Santos MD [Primary Care Provider] - Patient/Caregiver Discharge Instructions Other Discharge Activity Instructions:: Please follow-up with primary care physician within 1 week upon discharge. Please follow-up with your oncologist within 1 to 2 weeks upon discharge Please follow-up with GI specialist within 1 to 2 weeks upon discharge Recommend taking 6 smaller volume meals per day to make it easier as he may have some difficulty given that you may need an additional esophageal dilation. Please come back to the ER if symptoms persist or worsen. Print Language: Tamazight Stand Alone Forms: Jodi Award Info., Patient Portal Info Letter Discharge Order Discharge Orders: Discharge (Routine); Ordered 03/13/25 Ordered By: Haritha Bartholomew Quality Discharge Quality Measures VTE prophylaxis
[2025-03-15 13:06] LABS: Cocci Serology, IgG Negative (Negative)
[2025-03-16 06:56] LABS: CA 19-9 Antigen* 34 U/mL (<34)
== END 2025-03-13 17:47 | disposition home or self-care (01) | DRG 392 ==
LOC: SERX 15:58 → SERHOLD 16:59 → S3NX 18:42
PROVIDERS: Nurse Practitioner Family; Specialist; Admitting Provider Student in an Organized Health Care Education/Training Program; Emergency Provider Emergency Medicine; PCP Family Medicine; Visit Provider Student in an Organized Health Care Education/Training Program
PROC: (CPT 43239; principal; 2025-03-11 18:15)
DX: K22.2 Esophageal obstruction (principal); E87.20 Acidosis, unspecified; N17.9 Acute kidney failure, unspecified; K20.80 Other esophagitis without bleeding; I10 Essential (primary) hypertension; G89.29 Other chronic pain; E87.6 Hypokalemia; K31.9 Disease of stomach and duodenum, unspecified; D64.9 Anemia, unspecified; E87.5 Hyperkalemia; F17.200 Nicotine dependence, unspecified, uncomplicated; F32.9 Major depressive disorder, single episode, unspecified; M54.9 Dorsalgia, unspecified; R91.8 Other nonspecific abnormal finding of lung field; K86.89 Other specified diseases of pancreas; Z79.890 Hormone replacement therapy; Z79.82 Long term (current) use of aspirin; Z79.899 Other long term (current) drug therapy; Z90.710 Acquired absence of both cervix and uterus
CPT/HCPCS: 36415; 71250; 74176; 80048; 80053; 80061; 81001; 82105; 82150; 82378; 83036; 83690; 83735; 84100; 84443; 85025; 86300; 86301; 86331; 86480; 86635; 87077; 87086; 87186; 93225; 96374; 97161; 99285; A4217; A4649; C1726; J1200; J1644; J2250; J2405; J3010; J3480; J7120; Q0162; Q9963; A9270

== ENCOUNTER 2025-03-29 14:35 | Outpatient (RCR) | payer MEDICARE, SELFPAY ==
--- NOTE | 2025-03-30 14:18 | CTCTXPLN_ITS ---
[facility] [address] [place], [place] [address] Physician Clinical Treatment Planning Note Date of Service: 03/29/2025 Name: DYLAN SALDIVAR : 1945 The patient has agreed to proceed with Radiation therapy. Tests and supporting medical records were interpreted to assist in defining the tumor location and extent of disease. Further imaging will be necessary to contour and delineate the volume to which the XRT will be provided. A. Treatment Intent: Palliative B. Modality: 6 MV VMAT C. Requested Technique: D. Treatment Site: Esophagus E. Critical structures to be contoured on plan: F. In order to accomplish this plan, I am ordering/Prescribing the followin. Simulations (s) will be performed to accomplish a reproducible treatment position, to determine optimal treatment portals/beam arrangements, to design beam modifying devices and verify treatment portals on patient prior to the commencement of Radiation Therapy. VMAT 2. Devices; for immobilization and beam shaping: Vac-Saige 3. CT Guidance for placement of XRT stephens Scan area: 4. Portal images Frequency: 5. Invivo transit dose measurement once per week on all VMAT patients. 6. Special Physics Consult Requested for: 7. Other requests: Special procedure getting chemo and radiation G. Dose Objectives: Palliative Electronically signed by: Patricio Arenas M.D. 03/29/2025 3:37 PM
== END 2025-04-08 23:59 | disposition home or self-care (01) ==
LOC: SCTC 14:35
PROVIDERS: PCP Family Medicine; Referring Provider Family Medicine; Visit Provider Radiology Therapeutic Radiology
DX: C15.5 Malignant neoplasm of lower third of esophagus (principal); R11.2 Nausea with vomiting, unspecified; R91.8 Other nonspecific abnormal finding of lung field
CPT/HCPCS: 99213; G0463

== ENCOUNTER 2025-03-29 17:24 | Observation (INO) | payer MEDICARE, SELFPAY ==
[2025-03-29 17:33] VITALS: BP 129/70; PULSE 109; RESP 20; TEMP 36.9; O2SAT 96
--- NOTE | 2025-03-29 17:49 | PD.EDADULT ---
ED General RME/HPI General Chief complaint: Dental/Oral/Throat Stated complaint: NEED FEEDING TUBE FOR ESOPHAGEAL CNX Time Seen by Provider: 03/29/25 17:32 Arrival date/time: 03/29/25 17:24 80-year-old female presents to the ED by request of Dr. Arenas for admission for G-tube placement. Patient has a history of esophageal cancer and has been unable to keep anything down due to adhesions. She is even unable to keep down liquids or melting ice. She denies any fever chills, but feels dehydrated. Mode of arrival: ambulatory Limitations: no limitations Related Data Home Medications ?Medication ?Instructions ?Recorded ?Confirmed cholecalciferol (vitamin D3) 25 1 tab PO QDAY #0 tabs 05/23/15 08/30/18 mcg (1,000 unit) capsule (Vitamin D3) conjugated estrogens 1.25 mg 1.2 tab PO QDAY ##30 05/23/15 08/30/18 tablet (Premarin) ibuprofen 800 mg tablet 1 tab PO TID ##90 05/23/15 08/30/18 Held on 03/13/25. Instructions: Resume on 03/20/25. Take as needed for pain, hold until you see your PCP lisinopril 10 mg tablet 10 tab PO QDAY ##30 05/23/15 08/30/18 vitamin E 268 mg (400 unit) capsule 1 tab PO QDAY #0 caps 05/23/15 08/30/18 aspirin 81 mg tablet,delayed 81 mg PO DAILY 08/24/18 08/30/18 release hydrocodone 7.5 mg-acetaminophen 7.5 tab PO 5 TIMES DAILY 08/24/18 08/30/18 325 mg tablet triamterene 37.5 25 mg PO DAILY 08/24/18 08/30/18 mg-hydrochlorothiazide 25 mg tablet (Maxzide-25mg) Held on 03/13/25. Instructions: Resume on 03/20/25. Please hold until you see your PCP alprazolam 0.5 mg tablet mg 03/10/25 estradiol 2 mg tablet mg 03/10/25 fluoxetine 20 mg capsule mg 03/10/25 Previous Rx's ?Medication ?Instructions ?Recorded ondansetron 4 mg disintegrating 4 mg PO Q6H #60 tabs 03/13/25 tablet Allergies Allergy/AdvReac Type Severity Reaction Status Date / Time No Known Allergies Allergy Verified 03/29/25 17:27 Review of Systems Review of Systems Systems Reviewed: All systems reviewed, normal except as documented Past Medical History Past Medical History NEUROLOGIC: Positive Neurological Disorders and Migraine CARDIAC: Positive Edema and Hypertension REPRODUCTIVE: Positive Previous Pregnancies (1) MUSCULOSKELETAL: Positive Musculoskeletal Disorders and Arthritis PSYCHO/SOCIAL: Positive Depression and Anxiety OTHER HISTORY: Positive Falls, Chicken Pox, Measles, Mumps and Pertussis Family History FAMILY HISTORY: Positive Family Respiratory Disorders (brother-COPD) and Family Surgery (sisters-hysterectomy; sister hip replaced) Surgical History SURGICAL: Positive Tonsillectomy, Abdominal Surgery, Lumpectomy (several in s) and Hysterectomy Social History SMOKING STATUS: Current every day smoker ED Exam Narrative Physical exam: Very pleasant, cachectic appearing, 80-year-old female, no acute distress. Lungs are clear, regular rate and rhythm without murmurs. Dry mucous membranes, abdomen is soft and nontender. General Limitations: Present no limitations General appearance: Present alert and in no apparent distress Head Head exam: Present atraumatic, normocephalic and normal inspection ENT ENT exam: Present normal exam and mucous membranes dry; Absent mucous membranes moist Neck Neck exam: Present normal inspection Chest Chest inspection: Present normal inspection and symmetric chest wall rise Respiratory Respiratory exam: Present normal lung sounds bilaterally; Absent respiratory distress, wheezes or stridor Cardiovascular Cardiovascular exam: Present regular rate, normal rhythm, tachycardia and normal heart sounds; Absent systolic murmur Abdominal Exam Abdominal exam: Present soft; Absent distention, tenderness, guarding or rebound Extremities Exam Extremities exam: Present normal inspection Back Exam Back exam: Present full ROM and other (Kyphosis noted) Neurological Exam Neurological exam: Present alert and oriented X3 Psychiatric Psychiatric exam: Present normal affect and normal mood Skin Skin exam: Present warm, dry, intact and normal color Course Orders Category Date Time Status EKG (ED ONLY) *Do not use* NOW Care 03/29/25 17:57 Completed Insert IV NOW Care 03/29/25 17:55 Active NPO STAT Care 03/29/25 17:53 Active EKG (ED Only) Stat Exams 03/29/25 17:57 Draft XR chest 2V Stat Exams 03/29/25 17:53 Taken Amylase Stat Lab 03/29/25 18:46 Completed CBC Stat Lab 03/29/25 18:46 Completed Comprehensive Metabolic Panel Stat Lab 03/29/25 18:46 Completed Lipase Stat Lab 03/29/25 18:46 Completed Urinalysis Stat Lab 03/29/25 17:53 Ordered Dextrose 5%-0.45% Ns [D5-1/2Ns] 1,000 ml Med 03/29/25 17:56 Active IV 75 mls/hr Vital Signs Vital signs: Vital Signs Temperature 98.4 F 03/29/25 17:33 Pulse Rate 109 H 03/29/25 17:33 Respiratory Rate 20 03/29/25 17:33 Blood Pressure 129/70 03/29/25 17:33 Pulse Oximetry (%) 96 03/29/25 17:33 Oxygen Delivery Method Room Air 03/29/25 17:33 Discharge Plan Prescriptions/Referrals Prescriptions/Med Rec: No Action ibuprofen 800 MG tablet 1 tab PO TID Qty: 90 lisinopril 10 MG tablet 10 tab PO QDAY Qty: 30 conjugated estrogens [Premarin] 1.25 MG tablet 1.2 tab PO QDAY Qty: 30 vitamin E 400 UNIT capsule 1 tab PO QDAY Qty: 0 cholecalciferol (vitamin D3) [Vitamin D3] 1,000 UNIT tablet 1 tab PO QDAY Qty: 0 aspirin 81 mg Tablet,Delayed Release (Dr/Ec) 81 mg PO DAILY hydrocodone-acetaminophen 7.5-325 mg Tablet 7.5 tab PO 5 TIMES DAILY triamterene-hydrochlorothiazid [Maxzide-25mg] 37.5-25 mg Tablet 25 mg PO DAILY alprazolam 0.5 mg tablet Patient Comments: TAKE 1 TABLET BY MOUTH EVERYDAY AT BEDTIME estradiol 2 mg tablet fluoxetine 20 mg capsule ondansetron 4 mg tablet,disintegrating 4 mg PO Q6H Qty: 60 0RF Referrals: Zeus Santos MD [Primary Care Provider] - In 1 week Patient/Caregiver Discharge Instructions Print Language: Upper Sorbian MDM Medication Administration(s) Medication Administration History Dextrose/Sodium Chloride (D5-1/2ns) 1,000 mls @ 75 mls/hr IV .[id number] ONE Stop: 03/30/25 07:15 Last Admin: 03/29/25 20:27 Dose: 75 mls/hr Documented By: ABIMAEL Dispositon Disposition: Admit Disposition comments: Discussed case with Dr. Yang, he agrees to consult. He would like the patient to be n.p.o. after midnight and will place the G-tube tomorrow.
--- NOTE | 2025-03-29 17:53 | XR_ITS ---
Examination: PA lateral chest 2 views TECHNIQUE: Upright PA and lateral chest 2 views Date and time: March 29, 2025 1918 hours INDICATIONS: Chest pain and vomiting today. FINDINGS: Early pneumonia left lower lobe Normal heart size Prominent osteopenia IMPRESSION: Early pneumonia left lower lobe
--- NOTE | 2025-03-29 17:57 | EKG_ITS ---
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
[2025-03-29 19:11] LABS: Basophils # (Auto) 0.1 Thou/mm3 (0.0-0.2); Basophils % (Auto) 1 % (0-2.5); Eosinophils # (Auto) 0.2 Thou/mm3 (0.0-0.5); Eosinophils % (Auto) 2 % (0-10); Hematocrit 32.7 % (36.0-46.0); Hemoglobin 10.9 g/dL (12.0-16.0); Immature Granulocytes % (Auto) 0 % (0-0); Immature Granulocytes Auto 0.04 Thou/mm3 (0.00-0.00); Lymphocytes % (Auto) 20 % (10-50); Mean Corpuscular HGB Conc 33.3 g/dl (31.0-37.0); Mean Corpuscular Hemoglobin 31.9 pg (25.0-35.0); Mean Corpuscular Volume 96 fL (80-100); Monocytes # (Auto) 0.6 Thou/mm3 (0.0-0.8); Monocytes % (Auto) 6 % (0-12); Neutrophils # (Auto) 7.1 Thou/mm3 (1.8-7.7); Neutrophils % (Auto) 71 % (37-80); Nucleated Red Blood Cell % 0 /100 WBC (0); Platelet Count 280 Thou/mm3 (140-440); RDW Standard Deviation 42.4 fL (36.4-46.3); Red Blood Count 3.42 Miln/mm3 (4.00-5.20)
[2025-03-29 19:42] LABS: Alanine Aminotransferase 9 U/L (10-49); Albumin, Serum 4.5 gm/dL (3.4-4.8); Albumin/Globulin Ratio 1.7 (1.2-2.2); Alkaline Phosphatase 61 U/L (46-116); Amylase 25 U/L (30-118); Anion Gap 13 (7-16); Aspartate Amino Transferase 17 U/L (0-34); BUN/Creatinine Ratio 17 Ratio (12-20); Bilirubin,Total 0.6 mg/dL (0.3-1.2); Blood Urea Nitrogen 31 mg/dL (9-23); Calcium 9.1 mg/dL (8.3-10.6); Calcium (Corrected) 9.1 mg/dL (8.5-10.1); Carbon Dioxide 26.5 mMol/L (20.0-31.0); Chloride 104 mMol/L (98-107); Creatinine (Component) 1.8 mg/dL (0.6-1.3); Globulin 2.7 gm/dL (2.3-3.5); Glucose 110 mg/dL (74-106); Lipase 27 U/L (12-53); Osmolality,Calculated 292 (275-295); Potassium 3.6 mMol/L (3.4-5.1); Sodium 143 mMol/L (136-145); Total Protein 7.2 gm/dL (5.7-8.2); eGFR 28 See Note
[2025-03-29 20:20] VITALS: BP 155/85; PULSE 86; RESP 20; TEMP 36.7; O2SAT 100
[2025-03-29] MEDS: DEXTROSE 5%-0.45% NS 1,000 ML 75 ML IV (20:27)
--- NOTE | 2025-03-29 21:41 | ESHP_ITS ---
<Statement entered by Micah Augirre MD - 03/29/25 23:36> I have discussed and was present for the essential components of the history, physical examination, diagnosis, and treatment plan with the resident. I agree with the patient's care as documented by the resident and amended herein by me. Micah Aguirre MD FACP. Documentation for date of: 03/29/25 HPI History of Present Illness History of present illness: Oliva Marc is 80 yr female with PMH of hypertension, chronic pain, MDD, on hormone replacement therapy, esophageal cancer sent to ED by Dr. Arenas for G tube placement. Patient had EGD done on last admission beginning of March. 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 Underwent dilation at that time. She is endorsing vomiting since past few days, worse today. Is not able to keep down solids or liquids. Has no odynophagia, has good appetite but lost about 15 pounds since October last year. Denies diarrhea, constipation, hematemasis, fever, chest pain, SOB, or lethargy. She has just established care with Dr. Arenas outpatient and has not started any active treatment yet. In ED, BP stable, HR 109, RR 20. Hb stable at 11, BUN 31, Cr 1.8. CXR shows early PNA in LLL. GI Dr. Yang was consulted. Patient to be admitted for Gtube placement/ possible repeat esophageal dilation and treatment MANAV. PMH: as noted above PSH: 2 back surgeries (2014, 2018), hysterectomy in early 30s FamHx: Denies family history of cancer Social: [id number] smoking history now transition to vaping, denies significant alcohol consumption, denies illicit drug use Meds: Aspirin 81 mg, estradiol, lisinopril 10 mg, ibuprofen 800 mg, Xanax 0.5 mg at night, fluoxetine 20mg daily Allergies: NKDA Review of Systems Review of Systems Systems Reviewed: All systems reviewed, normal except as documented Exam Vital Signs Temp Pulse Resp BP Pulse Ox O2 Del Method 98.0 F 86 20 155/85 H 100 Room Air 03/29/25 20:20 03/29/25 20:20 03/29/25 20:20 03/29/25 20:20 03/29/25 20:20 03/29/25 20:20 Narrative Exam General: Eldery female, No acute distress, cooperative HEENT: NCAT, No JVD noted. Mucosa dry. Pupils are equal and reactive to light bilaterally Cardiovascular: Normal S1 and S2. Regular rate and rhythm. Respiratory: Lungs are clear to auscultation bilaterally. No wheezing or crackles heard. Abdomen: Soft, nontender, not distended, normal bowel sounds. Skin: Warm to touch, dry, no rashes noted Musculoskeletal: No gross injuries. Able to move all 4 extremities. No pitting edema Neuro: Alert and oriented x3. No focal neuro deficits. Psych: Normal affect and mood Results: Labs 03/29/25 18:46 03/29/25 18:46 Labs: Short CBC 03/29/25 Range/Units 18:46 WBC 10.0 (3.6-11.0) Thou/mm3 Hgb 10.9 L (12.0-16.0) g/dL Hct 32.7 L (36.0-46.0) % Plt Count 280 D (140-440) Thou/mm3 BMP 03/29/25 18:46 Sodium 143 Potassium 3.6 Chloride 104 Carbon Dioxide 26.5 BUN 31 H Creatinine 1.8 H Glucose 110 H Calcium 9.1 Liver Function 03/29/25 Range/Units 18:46 Total Bilirubin 0.6 (0.3-1.2) mg/dL AST 17 (0-34) U/L ALT 9 L (10-49) U/L Alkaline Phosphatase 61 (46-116) U/L Albumin 4.5 (3.4-4.8) gm/dL Quality Measures Quality Measures VTE prophylaxis Advance care planning discussed with:: patient Medications Home Medications and Allergies Home Medications ?Medication ?Instructions ?Recorded ?Confirmed ?Type cholecalciferol (vitamin D3) 25 1 tab PO QDAY #0 tabs 05/23/15 08/30/18 History mcg (1,000 unit) capsule (Vitamin D3) conjugated estrogens 1.25 mg 1.2 tab PO QDAY ##30 05/0908/30/18 History tablet (Premarin) ibuprofen 800 mg tablet 1 tab PO TID ##90 05/23/15 1 History Held on 03/13/25. Instructions: Resume on 03/20/25. Take as needed for pain, hold until you see your PCP lisinopril 10 mg tablet 10 tab PO QDAY ##30 05/23/15 08/30/18 History vitamin E 268 mg (400 unit) capsule 1 tab PO QDAY #0 c aps 05/23/15 08/30/18 History aspirin 81 mg tablet,delayed 81 mg PO DAILY 08/24/18 1 History release hydrocodone 7.5 mg-acetaminophen 7.5 tab PO 5 TIMES DA JIMMIE 08/24/18 08/30/18 History 325 mg tablet triamterene 37.5 25 mg PO DAILY 08/24/1808/10 History mg-hydrochlorothiazide 25 mg tablet (Maxzide-25mg) Held on 03/13/25. Instructions: Resume on 03/20/25. Please hold until you see your PCP alprazolam 0.5 mg tablet mg 03/10/25 History estradiol 2 mg tablet mg 03/10/25 History fluoxetine 20 mg capsule mg 03/10/25 History Allergies Allergy/AdvReac Type Severity Reaction Status Date / Time No Known Allergies Allergy Verified 03/29/25 17:27 Visit Medications Acetaminophen (Acetaminophen 325 Mg Tablet) 650 mg PO Q6H PRN PRN Reason: Fever >100.3 or pain Stop: 04/28/25 21:30 Alprazolam (Alprazolam 0.25 Mg Tablet) 0.5 mg PO HS TONI Stop: 04/04/25 20:59 Fluoxetine HCl (Fluoxetine Hcl 10 Mg Capsule) 20 mg PO DAILY TONI Stop: 04/29/25 08:59 Heparin Sodium (Porcine) (Heparin Sod Inj 5000 Unit/Ml Vial) 5,000 unit SC Q8HR TONI Stop: 04/12/25 21:59 Dextrose/Sodium Chloride (D5-1/2ns) 1,000 mls @ 75 mls/hr IV .[id number] ONE Stop: 03/30/25 07:15 Last Admin: 03/29/25 20:27 Dose: 75 mls/hr Lisinopril (Lisinopril 2.5 Mg Tablet) mg PO QDAY TONI Stop: 04/28/25 21:39 Ondansetron HCl (Ondansetron Inj 2 Mg/Ml Inj 2 Ml) 4 mg IV Q6H PRN; Protocol PRN Reason: NAUSEA OR VOMITING Stop: 04/28/25 21:30 Sennosides (Senna Tablet) 1 tab PO QDAY PRN; Protocol PRN Reason: constipation Stop: 04/28/25 21:30 Assessment & Plan Plan Oliva Marc is 80 yr female with PMH of hypertension, chronic pain, MDD, on hormone replacement therapy, esophageal cancer sent to ED by Dr. Arenas for G tube placement. Patient had EGD done on last admission beginning of March. 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 Now having vomiting. GI Dr. Yang was consulted. Patient to be admitted for Gtube placement/ possible repeat esophageal dilation and treatment MANAV. 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 Underwent dilation at that time. Is not able to keep down solids or liquids. She has just established care with Dr. Arenas outpatient and has not started any active treatment yet. -Dr. Yang consulted for possible repeat dilation and placement of Gtube -Zofran PRN -NPO midnight -follow up outpatient with oncology Dr. Arenas #MANAV BUN 31, Cr 1.8. Most likely due to decreased oral intake in setting of esophageal cancer with vomiting. Other electrolytes within normal limits. -maintenance fluids -avoid nephrotoxic agents -daily CMP #hx HTN Patient takes Lisinopril 10 mg at home for hypertension. -Will hold lisinopril in setting of MANAV -Start amlodipine 5 mg daily #hx MDD #hx Anxiety -resumed Xanax 0.5 mg HS -resumed fluoxetine 2o mg daily #Hormone replacement therapy Patient had a hysterectomy in early 30s. Has been on HRT since then. Appears that patient takes estradiol at home. -resume once med rec completed Health maintenance: Dispo: med surg, eval for gtube placement FEN: liquid diet, NPO midnight DVT prophylaxis: Subcut heparin CODE STATUS: DNR The patient's management plan was discussed with my attending physician Dr. Aguirre. Guillermina Partida, PGY-1
[2025-03-29 21:47] VITALS: BP 155/85; PULSE 78; RESP 17; TEMP 36.7; O2SAT 96
[2025-03-29 22:10] VITALS: BP 155/85; PULSE 86
[2025-03-29] MEDS: HEPARIN SOD INJ 5000 UNIT/ML VIAL SC (22:10)
[2025-03-29] MEDS: amLODIPine BESYLATE 5 MG TABLET PO (22:10)
[2025-03-29] MEDS: ALPRazoLAM 0.25 MG TABLET 0.5 MG PO (22:25)
[2025-03-29 22:45] VITALS: BMI 21.1
--- NOTE | 2025-03-29 23:01 | PD.IMCONS ---
HPI Data of Consult Requesting Physician: Guillermina Partida MD Primary Care Provider: Zeus Santos MD Consult Narrative Reason for consult: Dysphagia, PEG placement History of present illness: 80 years old female sent to the ER by the oncology team Dr. Arenas as patient has progressive dysphagia cannot swallow anything has been having nausea vomiting She has a GE junction mass which is an adenocarcinoma on biopsies Which is most likely completely obstructing I have been asked for placement of a PEG tube cc:: cc: Guillermina Partida MD Past Medical History Surgical History OTHER SURGICAL HX: Essential hypertension GE junction adenocarcinoma Meds Home Medications and Allergies Home Medications ?Medication ?Instructions ?Recorded ?Confirmed ?Type cholecalciferol (vitamin D3) 25 1 tab PO QDAY #0 tabs 05/23/15 03/29/25 History mcg (1,000 unit) capsule (Vitamin D3) conjugated estrogens 1.25 mg 1.2 tab PO QDAY ##30 05/23/15 03/29/25 History tablet (Premarin) lisinopril 10 mg tablet 10 tab PO QDAY ##30 05/23/15 03/29/25 History vitamin E 268 mg (400 unit) capsule 1 tab PO QDAY #0 caps 05/23/15 03/29/25 History aspirin 81 mg tablet,delayed 81 mg PO DAILY 08/24/18 03/29/25 History release triamterene 37.5 25 mg PO DAILY 08/24/18 03/30/25 History mg-hydrochlorothiazide 25 mg tablet (Maxzide-25mg) Held on 03/30/25. Instructions: Hold until you see your PCP alprazolam 0.5 mg tablet 0.5 mg PO HS 03/10/25 03/29/25 History estradiol 2 mg tablet 2 mg PO QDAY 03/10/25 03/29/25 History fluoxetine 20 mg capsule 20 mg PO QDAY 03/10/25 03/29/25 History cyclobenzaprine 10 mg tablet 10 mg PO QDAY 03/29/25 03/29/25 History gabapentin 300 mg capsule 300 mg PO HS 03/29/25 03/29/25 History Allergies Allergy/AdvReac Type Severity Reaction Status Date / Time No Known Allergies Allergy Verified 03/29/25 17:27 Exam Vital Signs Temp Pulse Resp BP Pulse Ox O2 Del Method 98.1 F 86 17 155/85 H 96 Room Air 03/29/25 21:47 03/29/25 22:10 03/29/25 21:47 03/29/25 22:10 03/29/25 21:47 03/29/25 21:47 Constitutional Comments: Alert oriented very weak appearing Routine Respiratory Exam Comments: Normal to auscultation Routine Abdominal Exam Comments: Soft nontender Results Labs 04/01/25 05:40 04/01/25 05:40 Labs: Short CBC 03/29/25 Range/Units 18:46 WBC 10.0 (3.6-11.0) Thou/mm3 Hgb 10.9 L (12.0-16.0) g/dL Hct 32.7 L (36.0-46.0) % Plt Count 280 D (140-440) Thou/mm3 BMP 03/29/25 18:46 Sodium 143 Potassium 3.6 Chloride 104 Carbon Dioxide 26.5 BUN 31 H Creatinine 1.8 H Glucose 110 H Calcium 9.1 Liver Function 03/29/25 Range/Units 18:46 Total Bilirubin 0.6 (0.3-1.2) mg/dL AST 17 (0-34) U/L ALT 9 L (10-49) U/L Alkaline Phosphatase 61 (46-116) U/L Albumin 4.5 (3.4-4.8) gm/dL Assessment and Plan Additional Assessment & Plan Additional Plan: Dysphagia GE junction obstructing adenocarcinoma Plan Consent obtained for PEG tube placement via fiberoptic upper endoscopy with possible GE junction endoscopic dilatation We will schedule the procedure Thank you very much for the opportunity to participate in the care of this patient
[2025-03-30] VITALS (26 sets, daily range): BP systolic 123–188; BP diastolic 73–107; PULSE 60–90; RESP 10–21; TEMP 36.1–36.9; O2SAT 93–100; BMI 21.1
[2025-03-30 05:42] LABS: Basophils % (Auto) 0 % (0-2.5); Eosinophils # (Auto) 0.3 Thou/mm3 (0.0-0.5); Eosinophils % (Auto) 4 % (0-10); Hematocrit 27.2 % (36.0-46.0); Hemoglobin 9.3 g/dL (12.0-16.0); Immature Granulocytes % (Auto) 0 % (0-0); Immature Granulocytes Auto 0.02 Thou/mm3 (0.00-0.00); Lymphocytes # (Auto) 2.3 Thou/mm3 (1.0-4.8); Lymphocytes % (Auto) 30 % (10-50); Mean Corpuscular HGB Conc 34.2 g/dl (31.0-37.0); Mean Corpuscular Hemoglobin 32.1 pg (25.0-35.0); Mean Corpuscular Volume 94 fL (80-100); Monocytes # (Auto) 0.5 Thou/mm3 (0.0-0.8); Monocytes % (Auto) 7 % (0-12); Neutrophils # (Auto) 4.3 Thou/mm3 (1.8-7.7); Neutrophils % (Auto) 58 % (37-80); Nucleated Red Blood Cell % 0 /100 WBC (0); Platelet Count 234 Thou/mm3 (140-440); RDW Standard Deviation 41.6 fL (36.4-46.3); White Blood Count 7.5 Thou/mm3 (3.6-11.0)
[2025-03-30 06:18] LABS: Alanine Aminotransferase 7 U/L (10-49); Albumin, Serum 3.6 gm/dL (3.4-4.8); Albumin/Globulin Ratio 1.5 (1.2-2.2); Alkaline Phosphatase 49 U/L (46-116); Anion Gap 12 (7-16); Aspartate Amino Transferase 15 U/L (0-34); BUN/Creatinine Ratio 16 Ratio (12-20); Bilirubin,Total 0.5 mg/dL (0.3-1.2); Blood Urea Nitrogen 26 mg/dL (9-23); Calcium 8.4 mg/dL (8.3-10.6); Calcium (Corrected) 8.7 mg/dL (8.5-10.1); Chloride 102 mMol/L (98-107); Creatinine (Component) 1.6 mg/dL (0.6-1.3); Estimated Creatinine Clearance 23.2 mL/min (>60); Globulin 2.4 gm/dL (2.3-3.5); Glucose 285 mg/dL (74-106); Magnesium 1.9 mg/dL (1.6-2.6); Osmolality,Calculated 292 (275-295); Phosphorous 3.3 mg/dL (2.4-5.1); Sodium 139 mMol/L (136-145); eGFR 32 See Note
[2025-03-30 07:20] LABS: Collection Type, Urine Clean Catch
[2025-03-30 08:18] LABS: Amorphous Crystals,Urine Present (Absent); Bacteria,Urine 4+; Bilirubin,Urine Negative (Negative); Blood,Urine Negative (Negative); Color,Urine Yellow (Lt Yel-Yel); Glucose, Urine Negative (Negative); Ketones,Urine 1+ (Negative); Leukocyte Esterase,Urine Positive (Negative); Nitrite,Urine Positive (Negative); PH,Urine 5.5 (5.0-7.0); Protein,Urine Trace (Neg - Trace); RBC,Urine 23 /hpf (0-3); Specific Gravity,Urine 1.028 (1.001-1.035); Squamous Epithelial Cell,Urine 13 /hpf (0-5); Urobilinogen,Urine Negative mg/dL (0.0-1.0); WBC,Urine 15 /hpf (0-5)
[2025-03-30 08:31] LABS: Clarity,Urine Hazy (Clear/Hazy)
--- NOTE | 2025-03-30 08:38 | ESPR_ITS ---
Documentation for date of: 03/30/25 Subjective Subjective Interval history: Patient was seen and examined at bedside this AM. No acute exents overnight. Patient n.p.o., adequate urine output and mentation is at baseline. Patient complains of nausea. For the past 48 hours she has been unable to tolerate both solids and liquids. BUN improved to 26 and CR to 1.6, currently on maintenance fluids. K 3. Patient repleted with KCl 40 mEq IV x 1 Patient currently n.p.o. and scheduled for placement of G-tube today by residential plumber, Dr. Yang. Dietitian consulted for initiation of G-tube feeds after placement. Exam Vital Signs Temp Pulse Resp BP Pulse Ox O2 Del Method 98.0 F 90 17 152/81 H 95 Room Air 03/30/25 08:00 03/30/25 08:00 03/30/25 08:00 03/30/25 08:00 03/30/25 08:00 03/30/25 08:00 Narrative Exam Constitutional Alert, oriented x 3 and comfortable. Elderly female, cachectic, bitemporal wasting HEENT Vision grossly intact. Patent nares. Trachea midline Respiratory Chest normal on inspection and clear auscultation bilaterally Cardiovascular S1 and S2 audible, RRR. No murmurs carotid bruit. No gross JVD. Abdominal Soft and non tender to palpation in all quadrants. BS + Genitourinary No bladder tenderness, no flank pain. Normal to palpation Musculoskeletal Extremities tone within normal limits. No LE edema. Neurological CN II - XII grossly intact. Extremity motor and sensation grossly intact. Skin Warm, dry and intact. No apparent lesions. Psychiatric Patient has good affect, is cooperative Objective Labs 03/30/25 04:25 03/30/25 04:25 Labs: Laboratory Results - last 24 hr 03/29/25 03/30/25 03/30/25 18:46 04:25 06:30 WBC 10.0 7.5 RBC 3.42 L 2.90 L Hgb 10.9 L 9.3 L Hct 32.7 L 27.2 L MCV 96 94 MCH 31.9 32.1 MCHC 33.3 34.2 RDW Std Deviation 42.4 41.6 Plt Count 280 D 234 D Neut % (Auto) 71 58 Lymph % (Auto) 20 30 [place] % (Auto) 6 7 Eos % (Auto) 2 4 Baso % (Auto) 1 0 Neut # (Auto) 7.1 4.3 Lymph # (Auto) 2.0 2.3 [place] # (Auto) 0.6 0.5 Eos # (Auto) 0.2 0.3 Baso # (Auto) 0.1 0.0 Immature Gran # (Auto) 0.04 H 0.02 H Absolute Nucleated RBC 0.00 0.00 Immature Gran % 0 0 Nucleated RBC % 0 0 Sodium 143 139 Potassium 3.6 3.0 L D Chloride 104 102 Carbon Dioxide 26.5 25.0 Anion Gap 13 12 BUN 31 H 26 H Creatinine 1.8 H 1.6 H Estim Creat Clear Calc Not Performed. 23.2 L eGFR 28 L 32 L BUN/Creatinine Ratio 17 16 Glucose 110 H 285 H D Calculated Osmolality 292 292 Calcium 9.1 8.4 Corrected Calcium 9.1 8.7 Phosphorus 3.3 Magnesium 1.9 Total Bilirubin 0.6 0.5 AST 17 15 ALT 9 L 7 L Alkaline Phosphatase 61 49 Total Protein 7.2 6.0 Albumin 4.5 3.6 D Globulin 2.7 2.4 Albumin/Globulin Ratio 1.7 1.5 Amylase 25 L Lipase 27 Ur Collection Type Clean Catch Urine Color Yellow Urine Clarity Hazy Urine pH 5.5 Ur Specific [place] 1.028 Urine Protein Trace Urine Glucose (UA) Negative Urine Ketones 1+ A Urine Blood Negative Urine Nitrite Positive Urine Bilirubin Negative Urine Urobilinogen (Auto) Negative Ur Leukocyte Esterase Positive Urine RBC 23 H Urine WBC 15 H Ur Squamous Epith Cells 13 H Amorphous Crystals Present A Urine Bacteria 4+ A Quality Measures Quality Measures VTE prophylaxis Advance care planning discussed with:: patient Assessment & Plan Assessment Current Active Medications: Generic Name Dose Route Start Last Admin Trade Name Freq PRN Reason Stop Dose Admin Acetaminophen 650 mg 03/29/25 21:31 Acetaminophen 325 Mg Tablet PO 04/28/25 21:30 Q6H PRN Fever >100.3 or pain Alprazolam 0.5 mg 03/30/25 21:00 Alprazolam 0.25 Mg Tablet PO 04/04/25 20:59 HS TONI Amlodipine Besylate 5 mg 03/29/25 21:40 03/29/25 22:10 Amlodipine Besylate 5 Mg Tablet PO 04/28/25 21:39 5 mg DAILY TONI Administration Fluoxetine HCl 20 mg 03/30/25 09:00 Fluoxetine Hcl 10 Mg Capsule PO 04/29/25 08:59 DAILY TONI Heparin Sodium (Porcine) 5,000 unit 03/29/25 22:00 03/30/25 05:01 Heparin Sod Inj 5000 Unit/Ml Vial SC 04/12/25 21:59 Not Given Q8HR TONI Ondansetron HCl 4 mg 03/29/25 21:31 Ondansetron Inj 2 Mg/Ml Inj 2 Ml IV 04/28/25 21:30 Q6H PRN NAUSEA OR VOMITING Protocol Sennosides 1 tab 03/29/25 21:31 Senna Tablet PO 04/28/25 21:30 QDAY PRN constipation Protocol Plan Oliva Marc is 80 yr female with PMH of hypertension, chronic pain, MDD, on hormone replacement therapy, esophageal cancer sent to ED by Dr. Arenas for G tube placement. Patient had EGD done on last admission beginning of March. 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 Now having vomiting. GI Dr. Yang was consulted. Patient to be admitted for Gtube placement/ possible repeat esophageal dilation and treatment MANAV. Dysphagia Vomiting?improving Adenocarcinoma of espohagus EGD from last admission in March showed adenocarinoma with GE junction mass/stenosis. Underwent dilation at that time. Is not able to keep down solids or liquids. She has just established care with Dr. Arenas outpatient and has not started any active treatment yet. Currently patient n.p.o. for G-tube placement, dietitian consulted for commencement of feeds. Patient scheduled for palliative radiation therapy as outpatient by radiation oncologist, Dr. Arenas Plan: ? N.p.o. ? Scheduled for G-tube placement today by gastroenterology, Dr. Yang ? Zofran 4 Mg IV every 6 hourly as needed for nausea/vomiting ? Continue outpatient follow-up with radiation oncologist, Dr. Arenas. ? Gastroenterology, Dr. Yang consulted. Appreciate recommendations Acute kidney injury?improving BUN 31, Cr 1.8. BUN improved to 26 and CR to 1.6, currently on maintenance fluids. Etiology likely prerenal due to poor oral intake. Plan: ? Continue normal saline maintenance fluids at 90 cc/h - avoid nephrotoxic agents - daily CMP Primary hypertension Patient takes Lisinopril 10 mg at home for hypertension. Plan: ? Lisinopril held due to MANAV ? Continue home medication amlodipine 5 Mg p.o. daily MDD Anxiety Plan: - Continue home medication Xanax 0.5 mg HS - Continue home medication fluoxetine 2o mg daily Hormone replacement therapy Patient had a hysterectomy in early 30s. Has been on HRT since then. Appears that patient takes estradiol at home. -resume once med rec completed Health maintenance: Disposition: For G-tube placement by Dr. Yang Diet: N.p.o. Lines: pIVs GI Prophylaxis: None Thrombo Prophylaxis: Heparin Code status: DNR Plan of care discussed with Attending Dr. Diaz Hudson MD PGY 1 Disclaimer: This note was dictated by speech recognition. Minor errors in improvement coordinator may be present due to voice recognition software. Attending Provider Attestation/Addendum I have discussed and was present for the essential components of the history, physical examination, diagnosis, and treatment plan with the resident. I agree with the patient's care as documented by the resident and amended herein by me. Renny Perales DO. Although this document has been carefully reviewed, there may still be some phonetic and other typographical errors. These errors are purely grammatical due to imperfections in the software program and should not be construed in any way to compromise the substance of the patient's medical care during this visit.
[2025-03-30] MEDS: POTASSIUM CHL 10 mEq IVPB 10 MEQ/100 ML BAG 50 MEQ IV ×4 (08:59→12:20)
--- NOTE | 2025-03-30 09:33 | PC.SS ---
Initial assessment: patient is a 80 year old female admitted for G Tube Replacement. Patient confirmed demographic information. Patient lives at home alone. Patient identified her sisterJulia as her emergency contact. Patient reports utilizes a walker and cane at home to assist with ambulation. Patient followed by Zeus Santos for primary care. Patient pharmacy is [facility] in [place]. Patient to discharge home at time of discharge, family to assist with transportation home. No needs identified. D/c plan: Home Next of kin: sisterJulia
[2025-03-30] MEDS: ONDANSETRON INJ 2 MG/ML INJ 2 ML 4 MG IV (12:24)
--- NOTE | 2025-03-30 14:37 | PC.SS ---
Addendum entered by JUAN FRANCISCO Brasher 03/30/25 14:58: SS follow up: received call from patient's sister Julia, who informs the patient's brother in law, Harinder Ramirez (also listed on facesheet) is able to assist with home health needs if necessary. No preferred agency identified at this time. Original Note: SS follow up: attempted contact with patient's sister, Julia to discuss home health services, unable to reach her. Voicemail provided.
[2025-03-30] MEDS: SODIUM CHLORIDE 0.9% 1000 ML 1,000 ML 90 ML IV ×2 (15:01→21:39)
--- NOTE | 2025-03-30 15:06 | PC.NURSE ---
Once peg tube is in place and can be used. Per Diem Nurse recommended Jevity 1.5 @ 20ml/hr increase by 10ml/hr Q8 to goal of 50ml/hr x 24
--- NOTE | 2025-03-30 15:14 | PC.DIETICIAN ---
Dietitian note: Consider start Jevity 1.5 @ 20ml/hr, increase by 10ml/hr Q 8hrs as tolerated to goal of 50ml/hr x 24hrs via g-tube by pump to provide: 1200ml total vol, 1800kcal, 76g protein, 912ml FW. Give water flush 160ml Q 4 hrs for hydration if no IVF or per MD. *If oral diet is ordered, consider Blenderized diet *Provide education for bolus feeds via syringe at discharge: Jevity 1.5 237ml x5 feeding (5 cartons) daily via syringe to provide: 1185ml total vol, 1775ml kcal, 76g protein. Water Flush 180ml after feeds for 100% nutrition. Thank you
--- NOTE | 2025-03-30 20:00 | SUR.PHASEI ---
Pt. arrived to recovery via gurney, eyes closed, responds to verbal commands, VSS with exception of bp 182/95. Per Manisha MILLS pt.'s bp was high during the procedure as well, will reassess. Lung sounds clear, equal expansion volodymyr., pt. receiving 3 liters 02 via NC. IV flushed and patent, no c/o pain or nausea at this time. Report received from Manisha MILLS.
--- NOTE | 2025-03-30 20:25 | SUR.PHASEI ---
Called and gave report on pt. s/p procedure to Renny MILLS on M/S unit.
--- NOTE | 2025-03-30 20:35 | SUR.PHASEI ---
Pt. transferred to room 382 via ILSA damian, no c/o pain or nausea at this time, Renny MILLS assumed care of pt.
[2025-03-30] MEDS: ALPRazoLAM 0.25 MG TABLET 0.5 MG PO (21:39)
[2025-03-31] VITALS (23 sets, daily range): BP systolic 114–210; BP diastolic 59–123; PULSE 9–99; RESP 10–22; TEMP 36.2–37; O2SAT 95–100
[2025-03-31] MEDS: HEPARIN SOD INJ 5000 UNIT/ML VIAL SC ×2 (05:31→21:50)
[2025-03-31 05:56] LABS: Basophils % (Auto) 1 % (0-2.5); Eosinophils # (Auto) 0.2 Thou/mm3 (0.0-0.5); Eosinophils % (Auto) 2 % (0-10); Hematocrit 27.4 % (36.0-46.0); Hemoglobin 9.3 g/dL (12.0-16.0); Immature Granulocytes % (Auto) 0 % (0-0); Immature Granulocytes Auto 0.03 Thou/mm3 (0.00-0.00); Lymphocytes # (Auto) 2.1 Thou/mm3 (1.0-4.8); Lymphocytes % (Auto) 30 % (10-50); Mean Corpuscular HGB Conc 33.9 g/dl (31.0-37.0); Mean Corpuscular Hemoglobin 32.5 pg (25.0-35.0); Mean Corpuscular Volume 96 fL (80-100); Monocytes # (Auto) 0.4 Thou/mm3 (0.0-0.8); Monocytes % (Auto) 6 % (0-12); Neutrophils # (Auto) 4.4 Thou/mm3 (1.8-7.7); Neutrophils % (Auto) 61 % (37-80); Nucleated Red Blood Cell % 0 /100 WBC (0); Platelet Count 278 Thou/mm3 (140-440); RDW Standard Deviation 41.6 fL (36.4-46.3); Red Blood Count 2.86 Miln/mm3 (4.00-5.20); White Blood Count 7.2 Thou/mm3 (3.6-11.0)
[2025-03-31 06:45] LABS: Alanine Aminotransferase 8 U/L (10-49); Albumin, Serum 3.5 gm/dL (3.4-4.8); Albumin/Globulin Ratio 1.6 (1.2-2.2); Alkaline Phosphatase 48 U/L (46-116); Anion Gap 12 (7-16); Aspartate Amino Transferase 19 U/L (0-34); BUN/Creatinine Ratio 19 Ratio (12-20); Bilirubin,Total 0.4 mg/dL (0.3-1.2); Blood Urea Nitrogen 23 mg/dL (9-23); Calcium 7.6 mg/dL (8.3-10.6); Carbon Dioxide 21.6 mMol/L (20.0-31.0); Chloride 109 mMol/L (98-107); Creatinine (Component) 1.2 mg/dL (0.6-1.3); Estimated Creatinine Clearance 29.6 mL/min (>60); Globulin 2.2 gm/dL (2.3-3.5); Glucose 80 mg/dL (74-106); Osmolality,Calculated 287 (275-295); Potassium 3.5 mMol/L (3.4-5.1); Sodium 143 mMol/L (136-145); Total Protein 5.7 gm/dL (5.7-8.2); eGFR 46 See Note
--- NOTE | 2025-03-31 09:22 | CHAP ---
Patient expressed gratitude for visit and prayer.
--- NOTE | 2025-03-31 09:30 | PC.NURSE ---
Pt refused morning PO meds due to continuous vomiting. Contacted Dr. Jung and made aware. Inquired about possible switch to IV medication. No new orders at this time. Will continue to assess.
--- NOTE | 2025-03-31 11:49 | PC.SS ---
Follow up note: GTube placement yesterday was unsuccessful. Will attempt GTube placement again today. Pt will return home with .
--- NOTE | 2025-03-31 16:12 | PD.RESPRO ---
Documentation for date of: 03/31/25 Subjective Subjective Interval history: Patient was seen and examined at bedside. Today patient was still vomiting. Yesterday EGD trial was done however there was significant amount of food residual in her stomach. Cannulation of the stomach was not possible. Dr. Yang recommended to keep the patient for 1 more day and hold that she will vomit the remaining amount of food in her stomach and will repeat EGD within the next 24 hours. Her labs all at baseline except mild elevation of sodium level to 143. Will hold her Zofran as we would like the patient to vomit hopefully to clear her stomach for another trial of EGD. Exam Vital Signs Temp Pulse Resp BP Pulse Ox O2 Del Method O2 Flow Rate 97.2 F 76 16 149/80 H 98 Room Air 1 03/31/25 12:00 03/31/25 12:00 03/31/25 12:00 03/31/25 12:00 03/31/25 12:00 03/31/25 12:00 03/30/25 20:20 Narrative Exam GEN: AOx3, able to speak full sentences, looks underweight HEENT: NC/AC, oral mucosa moist, neck supple CVS: RRR, S1-S2 present, no murmurs appreciated RESP: CTAB GI: soft,non distended, non tender, NBS MSK: able to move all 4 limbs, no lower extremity edema SKIN: warm and dry CHIEF SERVICE DISPATCHER: CN II-XII and Sensation grossly intact. Objective Labs 03/31/25 05:41 03/31/25 05:41 Labs: Laboratory Results - last 24 hr 03/31/25 05:41 WBC 7.2 RBC 2.86 L Hgb 9.3 L Hct 27.4 L MCV 96 MCH 32.5 MCHC 33.9 RDW Std Deviation 41.6 Plt Count 278 D Neut % (Auto) 61 Lymph % (Auto) 30 [place] % (Auto) 6 Eos % (Auto) 2 Baso % (Auto) 1 Neut # (Auto) 4.4 Lymph # (Auto) 2.1 [place] # (Auto) 0.4 Eos # (Auto) 0.2 Baso # (Auto) 0.0 Immature Gran # (Auto) 0.03 H Absolute Nucleated RBC 0.00 Immature Gran % 0 Nucleated RBC % 0 Sodium 143 Potassium 3.5 D Chloride 109 H Carbon Dioxide 21.6 Anion Gap 12 BUN 23 Creatinine 1.2 Estim Creat Clear Calc 29.6 L eGFR 46 L BUN/Creatinine Ratio 19 Glucose 80 D Calculated Osmolality 287 Calcium 7.6 L Corrected Calcium 8.0 L Total Bilirubin 0.4 AST 19 ALT 8 L Alkaline Phosphatase 48 Total Protein 5.7 Albumin 3.5 Globulin 2.2 L Albumin/Globulin Ratio 1.6 Quality Measures Quality Measures VTE prophylaxis Advance care planning discussed with:: patient Assessment & Plan Assessment Current Active Medications: Generic Name Dose Route Start Last Admin Trade Name Freq PRN Reason Stop Dose Admin Acetaminophen 650 mg 03/29/25 21:31 Acetaminophen 325 Mg Tablet PO 04/28/25 21:30 Q6H PRN Fever >100.3 or pain Alprazolam 0.5 mg 03/30/25 21:00 03/30/25 21:39 Alprazolam 0.25 Mg Tablet PO 04/04/25 20:59 0.5 mg HS TONI Administration Amlodipine Besylate 5 mg 03/29/25 21:40 03/31/25 08:56 Amlodipine Besylate 5 Mg Tablet PO 04/28/25 21:39 Not Given DAILY TONI Fluoxetine HCl 20 mg 03/30/25 09:00 03/31/25 08:57 Fluoxetine Hcl 10 Mg Capsule PO 04/29/25 08:59 Not Given DAILY TONI Heparin Sodium (Porcine) 5,000 unit 03/29/25 22:00 03/31/25 14:02 Heparin Sod Inj 5000 Unit/Ml Vial SC 04/12/25 21:59 Not Given Q8HR TONI Ondansetron HCl 4 mg 03/29/25 21:31 03/30/25 12:24 Ondansetron Inj 2 Mg/Ml Inj 2 Ml IV 04/28/25 21:30 4 mg Q6H PRN Administration NAUSEA OR VOMITING Protocol Sennosides 1 tab 03/29/25 21:31 Senna Tablet PO 04/28/25 21:30 QDAY PRN constipation Protocol Plan Summary: Oliva Marc is 80 yr female with PMH of hypertension, chronic pain, MDD, on hormone replacement therapy, esophageal cancer sent to ED by Dr. Arenas for G tube placement. Patient had EGD done on last admission beginning of March. 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 Now having vomiting. GI Dr. Yang was consulted. Patient to be admitted for Gtube placement/ possible repeat esophageal dilation and treatment MANAV. 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 Underwent dilation at that time. Is not able to keep down solids or liquids. She has just established care with Dr. Arenas outpatient and has not started any active treatment yet. Currently patient n.p.o. for G-tube placement, dietitian consulted for commencement of feeds. Patient scheduled for palliative radiation therapy as outpatient by radiation oncologist, Dr. Arenas Plan: ? N.p.o. ? Scheduled for another trial for G-tube placement today or tomorrow by gastroenterology, Dr. Yang, felt surgical consultation will be done for possible surgical intervention. ? Hold Zofran 4 Mg IV every 6 hourly as needed for nausea/vomiting ? Continue outpatient follow-up with radiation oncologist, Dr. Arenas. ? Gastroenterology, Dr. Yang consulted. Appreciate recommendations #Acute kidney injury?improving BUN 31, Cr 1.8. BUN improved to 26 and CR to 1.6, currently on maintenance fluids. Etiology likely prerenal due to poor oral intake. Plan: ? Start the patient on LR 125 cc/h as the patient continued to vomit. - avoid nephrotoxic agents - daily CMP #Primary hypertension Patient takes Lisinopril 10 mg at home for hypertension. Plan: ? Lisinopril held due to MANAV ? Continue home medication amlodipine 5 Mg p.o. daily #MDD #Anxiety Plan: - Continue home medication Xanax 0.5 mg HS, consider to give Ativan 0.5 mg IV if severe agitation or anxiety - Continue home medication fluoxetine 2o mg daily #Hormone replacement therapy Patient had a hysterectomy in early 30s. Has been on HRT since then. Appears that patient takes estradiol at home. -resume once med rec completed Health maintenance: Disposition: For G-tube placement by Dr. Yang, another trial today or tomorrow, failed surgical consultation for possible gastrectomy. Diet: N.p.o. Lines: pIVs GI Prophylaxis: None Thrombo Prophylaxis: Heparin Code status: DNR - Patient's plan and care discussed with my attending, Dr. Diaz Jung MD Internal Medicine PGY-2 Attending Provider Attestation/Addendum I have discussed and was present for the essential components of the history, physical examination, diagnosis, and treatment plan with the resident. I agree with the patient's care as documented by the resident and amended herein by me. Renny Perales DO. Although this document has been carefully reviewed, there may still be some phonetic and other typographical errors. These errors are purely grammatical due to imperfections in the software program and should not be construed in any way to compromise the substance of the patient's medical care during this visit.
--- NOTE | 2025-03-31 19:50 | PC.NURSE ---
Spoke with Dr. Sevilla regarding tube feeds r/t Dr. Yang ok to use feeding tube, per MD hold off for now, flush per Dr. Robledo orders.
[2025-03-31] MEDS: RINGERS LACTATED 1000 ML 1,000 ML 100 ML IV (20:05)
[2025-03-31] MEDS: ceFAZolin/D5W 1 GM IVPB 1 GM/50 ML BAG IV (20:09)
--- NOTE | 2025-03-31 20:30 | PC.NURSE ---
Spoke with regarding tube feed, start tube feed tonight per artificial plastic eye maker recommendation, betadine swab qday starting tomorrow
[2025-03-31] MEDS: ALPRazoLAM 0.25 MG TABLET 0.5 MG PO (21:50)
[2025-04-01] VITALS (9 sets, daily range): BP systolic 125–142; BP diastolic 61–77; PULSE 80–90; RESP 16–18; TEMP 36.4–37.2; O2SAT 9–99
[2025-04-01] MEDS: oxyCODONE/APAP 5/325 TABLET 1 TAB PO (00:01)
[2025-04-01] MEDS: RINGERS LACTATED 1000 ML 1,000 ML 100 ML IV (06:04)
[2025-04-01] MEDS: HEPARIN SOD INJ 5000 UNIT/ML VIAL SC ×3 (06:04→21:26)
[2025-04-01 06:11] LABS: Basophils % (Auto) 0 % (0-2.5); Eosinophils # (Auto) 0.1 Thou/mm3 (0.0-0.5); Eosinophils % (Auto) 1 % (0-10); Hematocrit 26.4 % (36.0-46.0); Immature Granulocytes % (Auto) 0 % (0-0); Immature Granulocytes Auto 0.02 Thou/mm3 (0.00-0.00); Lymphocytes # (Auto) 1.7 Thou/mm3 (1.0-4.8); Lymphocytes % (Auto) 20 % (10-50); Mean Corpuscular HGB Conc 34.1 g/dl (31.0-37.0); Mean Corpuscular Hemoglobin 32.1 pg (25.0-35.0); Mean Corpuscular Volume 94 fL (80-100); Monocytes # (Auto) 0.6 Thou/mm3 (0.0-0.8); Monocytes % (Auto) 7 % (0-12); Neutrophils # (Auto) 5.9 Thou/mm3 (1.8-7.7); Neutrophils % (Auto) 71 % (37-80); Nucleated Red Blood Cell % 0 /100 WBC (0); Platelet Count 219 Thou/mm3 (140-440); RDW Standard Deviation 41.3 fL (36.4-46.3); White Blood Count 8.3 Thou/mm3 (3.6-11.0)
[2025-04-01 06:42] LABS: Alanine Aminotransferase 8 U/L (10-49); Albumin, Serum 3.4 gm/dL (3.4-4.8); Albumin/Globulin Ratio 1.6 (1.2-2.2); Alkaline Phosphatase 48 U/L (46-116); Anion Gap 12 (7-16); Aspartate Amino Transferase 19 U/L (0-34); BUN/Creatinine Ratio 14 Ratio (12-20); Bilirubin,Total 0.4 mg/dL (0.3-1.2); Blood Urea Nitrogen 17 mg/dL (9-23); Calcium 7.7 mg/dL (8.3-10.6); Calcium (Corrected) 8.2 mg/dL (8.5-10.1); Carbon Dioxide 22.2 mMol/L (20.0-31.0); Chloride 108 mMol/L (98-107); Creatinine (Component) 1.2 mg/dL (0.6-1.3); Estimated Creatinine Clearance 29.6 mL/min (>60); Globulin 2.1 gm/dL (2.3-3.5); Glucose 113 mg/dL (74-106); Osmolality,Calculated 285 (275-295); Potassium 3.3 mMol/L (3.4-5.1); Sodium 142 mMol/L (136-145); Total Protein 5.5 gm/dL (5.7-8.2); eGFR 46 See Note
[2025-04-01] MEDS: amLODIPine BESYLATE 5 MG TABLET PO (08:35)
[2025-04-01] MEDS: FLUoxetine HCL 10 MG CAPSULE 20 MG PO (08:35)
[2025-04-01 09:29] LABS: Magnesium 1.6 mg/dL (1.6-2.6)
[2025-04-01] MEDS: POTASSIUM CHLORIDE 10% 20 MEQ/15 ML UDC 40 MEQ GT (10:25)
[2025-04-01] MEDS: CALCIUM CARBONATE 600 MG TABLET GT (10:25)
--- NOTE | 2025-04-01 10:46 | PD.IMPROG ---
Documentation for date of: 04/01/25 Subjective Subjective Interval history: Patient able to drink liquids PEG feeding started and tolerating it well Exam Vital Signs Temp Pulse Resp BP Pulse Ox O2 Del Method O2 Flow Rate 98.8 F 88 16 128/61 99 Room Air 3 04/01/25 08:00 04/01/25 08:35 04/01/25 08:00 04/01/25 08:35 04/01/25 08:00 04/01/25 08:00 04/01/25 00:00 Objective Labs 04/01/25 05:40 04/01/25 05:40 Labs: Laboratory Results - last 24 hr 04/01/25 05:40 WBC 8.3 RBC 2.80 L Hgb 9.0 L Hct 26.4 L MCV 94 MCH 32.1 MCHC 34.1 RDW Std Deviation 41.3 Plt Count 219 D Neut % (Auto) 71 Lymph % (Auto) 20 [place] % (Auto) 7 Eos % (Auto) 1 Baso % (Auto) 0 Neut # (Auto) 5.9 Lymph # (Auto) 1.7 [place] # (Auto) 0.6 Eos # (Auto) 0.1 Baso # (Auto) 0.0 Immature Gran # (Auto) 0.02 H Absolute Nucleated RBC 0.00 Immature Gran % 0 Nucleated RBC % 0 Sodium 142 Potassium 3.3 L Chloride 108 H Carbon Dioxide 22.2 Anion Gap 12 BUN 17 Creatinine 1.2 Estim Creat Clear Calc 29.6 L eGFR 46 L BUN/Creatinine Ratio 14 Glucose 113 H Calculated Osmolality 285 Calcium 7.7 L Corrected Calcium 8.2 L Phosphorus 3.0 Magnesium 1.6 Total Bilirubin 0.4 AST 19 ALT 8 L Alkaline Phosphatase 48 Total Protein 5.5 L Albumin 3.4 Globulin 2.1 L Albumin/Globulin Ratio 1.6 Impressions Impression: Status post placement of a PEG tube endoscopically Status post 50 mm guidewire dilatation of the GE junction Okay to discharge Will follow in my office next week for a repeat endoscopic dilatation Assessment & Plan Time Spent With Patient Time: Total time spent is greater than 50% in coordination of care (as documented) at patient's floor/unit and/or counseling patient:
--- NOTE | 2025-04-01 13:10 | PC.CM ---
Addendum entered by Kenyatta Acuña RN 04/01/25 19:03: [facility] states [facility] can open patient on Thursday. I let them know patient is ready for discharge and I asked if they can open sooner. [facility] can follow. I will follow up with [facility] tomorrow. Original Note: Patient needs home health services and Infusion company for new g-tube placement. I sent to all home health agencies and to the infusion companies. Pending acceptance and start of care date.
--- NOTE | 2025-04-01 13:41 | PC.SS ---
SS and Transfer Nurse Kenyatta met pt at bedside to discuss options, pt confirmed no preference on HH services to assist with getting necessary supplies SS made aware of GI Tube and pump needed; SS met pt by bedside and informed of medicare; pt alert and oriented x4
--- NOTE | 2025-04-01 14:20 | PD.RESPRO ---
Documentation for date of: 04/01/25 Subjective Subjective Interval history: Overnight patient had no events. Successful placement of G-tube on 03/31 by shop tailor, Dr. Yang. Vitals within normal limits. Potassium 3.3, corrected calcium 8.2, Hb 9, HCT 26.4. PEG tube exit sites clean and covered with bandages, patient endorses some mild pain at the site. Currently G-tube feeds going at 40 cc/h will increase to goal of 50 cc/h at 11 PM. After initial dose patient will have bolus feeds, 1.5 mL/day. She also can have clear liquid diet as tolerated. She was repleted with KCl 40 mEq IV x 1, calcium carbonate 600 Mg p.o. x 1 and placed on hydrocodone 5/325 as needed for pain control. Patient will need to be scheduled for a repeat endoscopy in 1 week to further dilate the GE junction with a bigger balloon and also possible placement of an esophageal stent at the GE junction. 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 Exam Vital Signs Temp Pulse Resp BP Pulse Ox O2 Del Method O2 Flow Rate 98.2 F 84 16 127/77 96 Room Air 3 04/01/25 12:00 04/01/25 12:00 04/01/25 12:00 04/01/25 12:00 04/01/25 12:00 04/01/25 12:00 04/01/25 00:00 Narrative Exam Constitutional Alert, oriented x 3 and comfortable. Elderly female, cachectic, bitemporal wasting HEENT Vision grossly intact. Patent nares. Trachea midline Respiratory Chest normal on inspection and clear auscultation bilaterally Cardiovascular S1 and S2 audible, RRR. No murmurs carotid bruit. No gross JVD. Abdominal Soft and non tender to palpation in all quadrants. BS +. PEG tube exit site clean and dry covered with bandage Genitourinary No bladder tenderness, no flank pain. Normal to palpation Musculoskeletal Extremities tone within normal limits. No LE edema. Neurological CN II - XII grossly intact. Extremity motor and sensation grossly intact. Skin Warm, dry and intact. No apparent lesions. Psychiatric Patient has good affect, is cooperative. Objective Labs 04/01/25 05:40 04/01/25 05:40 Labs: Laboratory Results - last 24 hr 04/01/25 05:40 WBC 8.3 RBC 2.80 L Hgb 9.0 L Hct 26.4 L MCV 94 MCH 32.1 MCHC 34.1 RDW Std Deviation 41.3 Plt Count 219 D Neut % (Auto) 71 Lymph % (Auto) 20 [place] % (Auto) 7 Eos % (Auto) 1 Baso % (Auto) 0 Neut # (Auto) 5.9 Lymph # (Auto) 1.7 [place] # (Auto) 0.6 Eos # (Auto) 0.1 Baso # (Auto) 0.0 Immature Gran # (Auto) 0.02 H Absolute Nucleated RBC 0.00 Immature Gran % 0 Nucleated RBC % 0 Sodium 142 Potassium 3.3 L Chloride 108 H Carbon Dioxide 22.2 Anion Gap 12 BUN 17 Creatinine 1.2 Estim Creat Clear Calc 29.6 L eGFR 46 L BUN/Creatinine Ratio 14 Glucose 113 H Calculated Osmolality 285 Calcium 7.7 L Corrected Calcium 8.2 L Phosphorus 3.0 Magnesium 1.6 Total Bilirubin 0.4 AST 19 ALT 8 L Alkaline Phosphatase 48 Total Protein 5.5 L Albumin 3.4 Globulin 2.1 L Albumin/Globulin Ratio 1.6 Quality Measures Quality Measures VTE prophylaxis Advance care planning discussed with:: patient Assessment & Plan Assessment Current Active Medications: Generic Name Dose Route Start Last Admin Trade Name Freq PRN Reason Stop Dose Admin Acetaminophen 650 mg 04/01/25 09:56 Acetaminophen Alina 325 Mg/10 Ml Udc PO 05/01/25 09:55 Q4HR PRN PAIN 1-3 OR FEVER > 101 Hydrocodone Bitart/Acetaminophen 1 tab 04/01/25 09:55 Hydrocodone/Apap 5/325 Tablet GT 04/06/25 09:54 Q4HR PRN PAIN SCALE 4-10(Mod-Sev Alprazolam 0.5 mg 03/30/25 21:00 03/31/25 21:50 Alprazolam 0.25 Mg Tablet PO 04/04/25 20:59 0.5 mg HS TONI Administration Amlodipine Besylate 5 mg 03/29/25 21:40 04/01/25 08:35 Amlodipine Besylate 5 Mg Tablet PO 04/28/25 21:39 5 mg DAILY TONI Administration Fluoxetine HCl 20 mg 03/30/25 09:00 04/01/25 08:35 Fluoxetine Hcl 10 Mg Capsule PO 04/29/25 08:59 20 mg DAILY TONI Administration Heparin Sodium (Porcine) 5,000 unit 03/29/25 22:00 04/01/25 13:32 Heparin Sod Inj 5000 Unit/Ml Vial SC 04/12/25 21:59 5,000 unit Q8HR TONI Administration Hydralazine HCl 10 mg 03/31/25 16:12 Hydralazine Inj 20 Mg/Ml Vial IVP Q30MIN PRN SBP >180mmHg Ondansetron HCl 4 mg 03/29/25 21:31 03/30/25 12:24 Ondansetron Inj 2 Mg/Ml Inj 2 Ml IV 04/28/25 21:30 4 mg Q6H PRN Administration NAUSEA OR VOMITING Protocol Sennosides 1 tab 03/29/25 21:31 Senna Tablet PO 04/28/25 21:30 QDAY PRN constipation Protocol Plan Summary: Oliva Marc is 80 yr female with PMH of hypertension, chronic pain, MDD, on hormone replacement therapy, esophageal cancer sent to ED by Dr. Arenas for G tube placement. Patient had EGD done on last admission beginning of March. 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 Now having vomiting. GI Dr. Yang was consulted. Patient to be admitted for Gtube placement/ possible repeat esophageal dilation and treatment MANAV. 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 Underwent dilation at that time. Is not able to keep down solids or liquids. She has just established care with Dr. Arenas outpatient and has not started any active treatment yet. Patient's failed placement of G-tube on 03/30 due to obstruction of food at the GE junction. Had repeat endoscopy on 03/31 with successful removal of food obstruction with [place] net and subsequent placement of G-tube. This was the initial placement of G-tube for the patient, she never had a G-tube in the past. Plan: ?Clear liquid diet as tolerated ? G-tube feeds at 20 mL/h, increase by 10 cc every 8 hourly until goal of 50 cc/h reached. Following first feed, patient will have daily bolus feeds of 1.5 mL Jevity. ? Resumed Zofran 4 Mg IV every 6 hourly as needed for nausea/vomiting ? Patient will need to be scheduled for a repeat endoscopy in 1 week on 04/07/2025 to further dilate the GE junction with a bigger balloon and also possible placement of an esophageal stent at the GE junction. ? Continue outpatient follow-up with radiation oncologist, Dr. Arenas. ? Gastroenterology, Dr. Yang consulted. Appreciate recommendations #Acute kidney injury?resolving On admission BUN 31, Cr 1.8. BUN improved to 17 and CR to 1.2 Plan: ? Discontinued IV fluids outpatient now tolerating clear liquid diet and free water flushes via G-tube ?Avoid nephrotoxic agents #Primary hypertension Patient takes Lisinopril 10 mg at home for hypertension. Plan: ? Lisinopril held due to MANAV ? Continue home medication amlodipine 5 Mg p.o. daily #MDD #Anxiety Plan: - Continue home medication Xanax 0.5 mg HS, consider to give Ativan 0.5 mg IV if severe agitation or anxiety - Continue home medication fluoxetine 2o mg daily #Hormone replacement therapy Patient had a hysterectomy in early 30s. Has been on HRT since then. Appears that patient takes estradiol at home. -resume once med rec completed Health maintenance: Disposition: Pending home health for tube feeds. Anticipate discharge within next 24 to 48 hours Diet: G-tube feeds. Clear liquid diet as tolerated Lines: pIVs GI Prophylaxis: None Thrombo Prophylaxis: Heparin Code status: DNR Plan of care discussed with Attending Dr. Diaz Hudson MD PGY 1 Disclaimer: This note was dictated by speech recognition. Minor errors in shearer screen measurer and trimmer may be present due to voice recognition software. Attending Provider Attestation/Addendum I have discussed and was present for the essential components of the history, physical examination, diagnosis, and treatment plan with the resident. I agree with the patient's care as documented by the resident and amended herein by me. Renny Perales, DO. Patient seen and evaluated this AM. No acute events overnight, patient was able to have her PEG tube placed last night with Dr. Yang. Of note, this is the initial placement of a PEG tube for this patient. Patient did not have PEG tube prior to admission. Dietitian has placed recommendations while inpatient and recommendations for bolus feeding as an outpatient. Per gastroenterology, patient will need a repeat EGD in 1 week. Home health orders have been placed for tube feeding supplies. Likely discharge possibly later today or tomorrow when we find a home health agency that can accommodate the patient's tube feeding requirements/supplies. Will continue to monitor closely Nicole. Although this document has been carefully reviewed, there may still be some phonetic and other typographical errors. These errors are purely grammatical due to imperfections in the software program and should not be construed in any way to compromise the substance of the patient's medical care during this visit.
[2025-04-01] MEDS: ALPRazoLAM 0.25 MG TABLET 0.5 MG PO (21:28)
[2025-04-01] MEDS: HYDROcodone/APAP 5/325 TABLET 1 TAB GT (21:43)
[2025-04-02] VITALS (9 sets, daily range): BP systolic 112–135; BP diastolic 57–81; PULSE 74–93; RESP 17–20; TEMP 36.1–37.1; O2SAT 94–98
[2025-04-02 05:30] LABS: Basophils % (Auto) 0 % (0-2.5); Eosinophils # (Auto) 0.4 Thou/mm3 (0.0-0.5); Eosinophils % (Auto) 5 % (0-10); Hematocrit 25.5 % (36.0-46.0); Hemoglobin 8.9 g/dL (12.0-16.0); Immature Granulocytes % (Auto) 0 % (0-0); Immature Granulocytes Auto 0.02 Thou/mm3 (0.00-0.00); Lymphocytes % (Auto) 27 % (10-50); Mean Corpuscular HGB Conc 34.9 g/dl (31.0-37.0); Mean Corpuscular Hemoglobin 32.2 pg (25.0-35.0); Mean Corpuscular Volume 92 fL (80-100); Monocytes # (Auto) 0.7 Thou/mm3 (0.0-0.8); Monocytes % (Auto) 10 % (0-12); Neutrophils # (Auto) 4.2 Thou/mm3 (1.8-7.7); Neutrophils % (Auto) 57 % (37-80); Nucleated Red Blood Cell % 0 /100 WBC (0); Platelet Count 222 Thou/mm3 (140-440); RDW Standard Deviation 40.9 fL (36.4-46.3); Red Blood Count 2.76 Miln/mm3 (4.00-5.20); White Blood Count 7.3 Thou/mm3 (3.6-11.0)
[2025-04-02 05:56] LABS: Alanine Aminotransferase 7 U/L (10-49); Albumin, Serum 3.3 gm/dL (3.4-4.8); Albumin/Globulin Ratio 1.6 (1.2-2.2); Alkaline Phosphatase 48 U/L (46-116); Anion Gap 11 (7-16); Aspartate Amino Transferase 17 U/L (0-34); BUN/Creatinine Ratio 11 Ratio (12-20); Bilirubin,Total 0.3 mg/dL (0.3-1.2); Blood Urea Nitrogen 11 mg/dL (9-23); Calcium 8.6 mg/dL (8.3-10.6); Calcium (Corrected) 9.2 mg/dL (8.5-10.1); Carbon Dioxide 24.1 mMol/L (20.0-31.0); Chloride 103 mMol/L (98-107); Estimated Creatinine Clearance 35.5 mL/min (>60); Globulin 2.1 gm/dL (2.3-3.5); Glucose 137 mg/dL (74-106); Magnesium 1.6 mg/dL (1.6-2.6); Osmolality,Calculated 277 (275-295); Phosphorous 2.8 mg/dL (2.4-5.1); Potassium 3.3 mMol/L (3.4-5.1); Sodium 138 mMol/L (136-145); Total Protein 5.4 gm/dL (5.7-8.2); eGFR 57 See Note
[2025-04-02] MEDS: HEPARIN SOD INJ 5000 UNIT/ML VIAL SC ×3 (05:58→21:44)
[2025-04-02] MEDS: amLODIPine BESYLATE 5 MG TABLET PO (08:07)
[2025-04-02] MEDS: FLUoxetine HCL 10 MG CAPSULE 20 MG PO (08:07)
[2025-04-02] MEDS: Magnesium Sulfate 2 GM Ivpb 2 GM/50 ML BAG IV (08:32)
[2025-04-02] MEDS: NAPH,KPH MBDB 1 PACKET (1.5 GM) GT (08:32)
[2025-04-02] MEDS: POTASSIUM CHLORIDE 10% 20 MEQ/15 ML UDC 40 MEQ GT (08:32)
--- NOTE | 2025-04-02 08:48 | PC.CC ---
Addendum entered by Tera Miranda RN 04/02/25 15:45: [facility] requested pt's insurance card to verify insurance. They may not be contracted with the insurance. I sent a copy, awaiting response from [facility]. Original Note: [facility] confirmed SOC 04/04, [facility] informed as well.
--- NOTE | 2025-04-02 09:47 | ESPR_ITS ---
Documentation for date of: 04/02/25 Subjective Subjective Interval history: Patient evaluated Tolerating PEG feeding Exam Vital Signs Temp Pulse Resp BP Pulse Ox O2 Del Method O2 Flow Rate 97.0 F 93 18 135/70 H 97 Room Air 3 04/02/25 08:00 04/02/25 08:45 04/02/25 08:45 04/02/25 08:07 04/02/25 08:45 04/02/25 08:00 04/01/25 00:00 Objective Labs 04/03/25 04:58 04/03/25 04:58 Labs: Laboratory Results - last 24 hr 04/02/25 04:41 WBC 7.3 RBC 2.76 L Hgb 8.9 L Hct 25.5 L MCV 92 MCH 32.2 MCHC 34.9 RDW Std Deviation 40.9 Plt Count 222 Neut % (Auto) 57 Lymph % (Auto) 27 [place] % (Auto) 10 Eos % (Auto) 5 Baso % (Auto) 0 Neut # (Auto) 4.2 Lymph # (Auto) 2.0 [place] # (Auto) 0.7 Eos # (Auto) 0.4 Baso # (Auto) 0.0 Immature Gran # (Auto) 0.02 H Absolute Nucleated RBC 0.00 Immature Gran % 0 Nucleated RBC % 0 Sodium 138 Potassium 3.3 L Chloride 103 Carbon Dioxide 24.1 Anion Gap 11 BUN 11 Creatinine 1.0 Estim Creat Clear Calc 35.5 L eGFR 57 L BUN/Creatinine Ratio 11 L Glucose 137 H Calculated Osmolality 277 Calcium 8.6 Corrected Calcium 9.2 Phosphorus 2.8 Magnesium 1.6 Total Bilirubin 0.3 AST 17 ALT 7 L Alkaline Phosphatase 48 Total Protein 5.4 L Albumin 3.3 L Globulin 2.1 L Albumin/Globulin Ratio 1.6 Impressions 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
--- NOTE | 2025-04-02 11:02 | PD.RESPRO ---
Documentation for date of: 04/02/25 Subjective Subjective Interval history: No events overnight, adequate urine output, ambulant, tolerating clear liquid diet although has minimal vomiting. Currently on G-tube feeds at 50 cc/h as per dietitian recommendations. Vitals within normal limits, potassium 3.3, magnesium 1.6 and phosphorus 2.8. 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 Patient repleted with KCl 40 Mg GT x 1, magnesium sulfate 2 g IV x 1 and 1 packet Neutra-Phos. Exam Vital Signs Temp Pulse Resp BP Pulse Ox O2 Del Method O2 Flow Rate 97.0 F 93 18 135/70 H 97 Room Air 3 04/02/25 08:00 04/02/25 08:45 04/02/25 08:45 04/02/25 08:07 04/02/25 08:45 04/02/25 08:00 04/01/25 00:00 Narrative Exam Constitutional Alert, oriented x 3 and comfortable. Elderly female, cachectic HEENT Vision grossly intact. Patent nares. Trachea midline Respiratory Chest normal on inspection and clear auscultation bilaterally Cardiovascular S1 and S2 audible, RRR. No murmurs carotid bruit. No gross JVD. Abdominal Soft and non tender to palpation in all quadrants. BS +. PEG tube exit site clean and dry covered with bandage Genitourinary No bladder tenderness, no flank pain. Normal to palpation Musculoskeletal Extremities tone within normal limits. No LE edema. Neurological CN II - XII grossly intact. Extremity motor and sensation grossly intact. Skin Warm, dry and intact. No apparent lesions. Psychiatric Patient has good affect, is cooperative. Objective Labs 04/02/25 04:41 04/02/25 04:41 Labs: Laboratory Results - last 24 hr 04/02/25 04:41 WBC 7.3 RBC 2.76 L Hgb 8.9 L Hct 25.5 L MCV 92 MCH 32.2 MCHC 34.9 RDW Std Deviation 40.9 Plt Count 222 Neut % (Auto) 57 Lymph % (Auto) 27 [place] % (Auto) 10 Eos % (Auto) 5 Baso % (Auto) 0 Neut # (Auto) 4.2 Lymph # (Auto) 2.0 [place] # (Auto) 0.7 Eos # (Auto) 0.4 Baso # (Auto) 0.0 Immature Gran # (Auto) 0.02 H Absolute Nucleated RBC 0.00 Immature Gran % 0 Nucleated RBC % 0 Sodium 138 Potassium 3.3 L Chloride 103 Carbon Dioxide 24.1 Anion Gap 11 BUN 11 Creatinine 1.0 Estim Creat Clear Calc 35.5 L eGFR 57 L BUN/Creatinine Ratio 11 L Glucose 137 H Calculated Osmolality 277 Calcium 8.6 Corrected Calcium 9.2 Phosphorus 2.8 Magnesium 1.6 Total Bilirubin 0.3 AST 17 ALT 7 L Alkaline Phosphatase 48 Total Protein 5.4 L Albumin 3.3 L Globulin 2.1 L Albumin/Globulin Ratio 1.6 Quality Measures Quality Measures VTE prophylaxis Advance care planning discussed with:: patient Assessment & Plan Assessment Current Active Medications: Generic Name Dose Route Start Last Admin Trade Name Freq PRN Reason Stop Dose Admin Acetaminophen 650 mg 04/01/25 09:56 Acetaminophen Alina 325 Mg/10 Ml Udc PO 05/01/25 09:55 Q4HR PRN PAIN 1-3 OR FEVER > 101 Hydrocodone Bitart/Acetaminophen 1 tab 04/01/25 09:55 04/01/25 21:43 Hydrocodone/Apap 5/325 Tablet GT 04/06/25 09:54 1 tab Q4HR PRN Administration PAIN SCALE 4-10(Mod-Sev Alprazolam 0.5 mg 03/30/25 21:00 04/01/25 21:28 Alprazolam 0.25 Mg Tablet PO 04/04/25 20:59 0.5 mg HS TONI Administration Amlodipine Besylate 5 mg 03/29/25 21:40 04/02/25 08:07 Amlodipine Besylate 5 Mg Tablet PO 04/28/25 21:39 5 mg DAILY TONI Administration Fluoxetine HCl 20 mg 03/30/25 09:00 04/02/25 08:07 Fluoxetine Hcl 10 Mg Capsule PO 04/29/25 08:59 20 mg DAILY TONI Administration Heparin Sodium (Porcine) 5,000 unit 03/29/25 22:00 04/02/25 05:58 Heparin Sod Inj 5000 Unit/Ml Vial SC 04/12/25 21:59 5,000 unit Q8HR TONI Administration Hydralazine HCl 10 mg 03/31/25 16:12 Hydralazine Inj 20 Mg/Ml Vial IVP Q30MIN PRN SBP >180mmHg Ondansetron HCl 4 mg 04/02/25 09:45 Ondansetron Inj 2 Mg/Ml Inj 2 Ml IV 05/02/25 09:44 Q4H [facility] Protocol Sennosides 1 tab 03/29/25 21:31 Senna Tablet PO 04/28/25 21:30 QDAY PRN constipation Protocol Plan Summary: Oliva Marc is 80 yr female with PMH of hypertension, chronic pain, MDD, on hormone replacement therapy, esophageal cancer sent to ED by Dr. Arenas for G tube placement. Patient had EGD done on last admission beginning of March. 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 Now having vomiting. GI Dr. Yang was consulted. Patient to be admitted for Gtube placement/ possible repeat esophageal dilation and treatment MANAV. 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 Underwent dilation at that time. Is not able to keep down solids or liquids. She has just established care with Dr. Arenas outpatient and has not started any active treatment yet. Patient's failed placement of G-tube on 03/30 due to obstruction of food at the GE junction. Had repeat endoscopy on 03/31 with successful removal of food obstruction with Alcala net and subsequent placement of G-tube. This was the initial placement of G-tube for the patient, she never had a G-tube in the past. Plan: ? Clear liquid diet as tolerated ? Continue tube feeds at 50 cc/h. Upon discharge patient will be started on bolus feeds at home as per dietitian recommendations. ? Scheduled Zofran 4 Mg IV Q4 hourly for nausea/vomiting ? Patient will need to be scheduled for a repeat endoscopy in 1 week on 04/07/2025 to further dilate the GE junction with a bigger balloon and also possible placement of an esophageal stent at the GE junction. ? Continue outpatient follow-up with radiation oncologist, Dr. Arenas. ? Gastroenterology, Dr. Yang consulted. Appreciate recommendations #Hypokalemia Potassium 3.3, magnesium 1.6 and phosphorus 2.8 Patient repleted with KCl 40 Mg GT x 1, magnesium sulfate 2 g IV x 1 and 1 packet Neutra-Phos. #Acute kidney injury?resolved On admission BUN 31, Cr 1.8. BUN improved to 11 and CR to 1 #Primary hypertension Patient takes Lisinopril 10 mg at home for hypertension. Plan: ? Resumed Home medication lisinopril 10 Mg p.o. daily ? Discontinued amlodipine 5 Mg p.o. daily #MDD #Anxiety Plan: - Continue home medication Xanax 0.5 mg HS, consider to give Ativan 0.5 mg IV if severe agitation or anxiety - Continue home medication fluoxetine 2o mg daily #Hormone replacement therapy Patient had a hysterectomy in early 30s. Has been on HRT since then. Appears that patient takes estradiol at home. -resume once med rec completed Health maintenance: Disposition: Pending home health for tube feeds. Anticipate discharge on Thursday once home health is arranged. Diet: G-tube feeds. Clear liquid diet as tolerated Lines: pIVs GI Prophylaxis: None Thrombo Prophylaxis: Heparin Code status: DNR Plan of care discussed with Attending Dr. Diaz Hudson MD PGY 1 Disclaimer: This note was dictated by speech recognition. Minor errors in solid waste technician may be present due to voice recognition software. Attending Provider Attestation/Addendum I have discussed and was present for the essential components of the history, physical examination, diagnosis, and treatment plan with the resident. I agree with the patient's care as documented by the resident and amended herein by me. Renny Perales DO. Patient seen and evaluated this AM. Unfortunately the patient's tube feeding supplies cannot be delivered until Wednesday 04/04 due to the holiday, the patient understands, she is tolerating tube feeds here well continue to monitor closely while she is here. Although this document has been carefully reviewed, there may still be some phonetic and other typographical errors. These errors are purely grammatical due to imperfections in the software program and should not be construed in any way to compromise the substance of the patient's medical care during this visit.
[2025-04-02] MEDS: ONDANSETRON INJ 2 MG/ML INJ 2 ML 4 MG IV ×3 (13:00→21:44)
[2025-04-02] MEDS: ALPRazoLAM 0.25 MG TABLET 0.5 MG PO (21:44)
[2025-04-02] MEDS: HYDROcodone/APAP 5/325 TABLET 1 TAB GT (21:44)
[2025-04-02] MEDS: SENNA TABLET 1 TAB PO (21:52)
[2025-04-03] VITALS: BP 114/53; PULSE 80; RESP 16; TEMP 36.1; O2SAT 96
[2025-04-03 04:00] VITALS: BP 123/72; PULSE 88; RESP 16; TEMP 36.2; O2SAT 96
[2025-04-03] MEDS: ONDANSETRON INJ 2 MG/ML INJ 2 ML 4 MG IV ×3 (06:13→14:37)
[2025-04-03] MEDS: HEPARIN SOD INJ 5000 UNIT/ML VIAL SC ×2 (06:13→14:37)
[2025-04-03 06:25] LABS: Basophils % (Auto) 0 % (0-2.5); Eosinophils # (Auto) 0.5 Thou/mm3 (0.0-0.5); Eosinophils % (Auto) 7 % (0-10); Hematocrit 26.5 % (36.0-46.0); Hemoglobin 8.9 g/dL (12.0-16.0); Immature Granulocytes % (Auto) 0 % (0-0); Immature Granulocytes Auto 0.02 Thou/mm3 (0.00-0.00); Lymphocytes % (Auto) 32 % (10-50); Mean Corpuscular HGB Conc 33.6 g/dl (31.0-37.0); Mean Corpuscular Hemoglobin 31.8 pg (25.0-35.0); Mean Corpuscular Volume 95 fL (80-100); Monocytes # (Auto) 0.6 Thou/mm3 (0.0-0.8); Monocytes % (Auto) 9 % (0-12); Neutrophils # (Auto) 3.3 Thou/mm3 (1.8-7.7); Neutrophils % (Auto) 52 % (37-80); Nucleated Red Blood Cell % 0 /100 WBC (0); Platelet Count 219 Thou/mm3 (140-440); RDW Standard Deviation 42.1 fL (36.4-46.3); White Blood Count 6.3 Thou/mm3 (3.6-11.0)
[2025-04-03 06:47] LABS: Alanine Aminotransferase < 7 U/L (10-49); Albumin, Serum 3.4 gm/dL (3.4-4.8); Albumin/Globulin Ratio 1.8 (1.2-2.2); Alkaline Phosphatase 50 U/L (46-116); Anion Gap 9 (7-16); Aspartate Amino Transferase 15 U/L (0-34); BUN/Creatinine Ratio 12 Ratio (12-20); Bilirubin,Total 0.2 mg/dL (0.3-1.2); Blood Urea Nitrogen 13 mg/dL (9-23); Calcium 8.5 mg/dL (8.3-10.6); Carbon Dioxide 29.4 mMol/L (20.0-31.0); Chloride 105 mMol/L (98-107); Creatinine (Component) 1.1 mg/dL (0.6-1.3); Estimated Creatinine Clearance 32.3 mL/min (>60); Globulin 1.9 gm/dL (2.3-3.5); Glucose 107 mg/dL (74-106); Osmolality,Calculated 285 (275-295); Phosphorous 4.6 mg/dL (2.4-5.1); Sodium 143 mMol/L (136-145); Total Protein 5.3 gm/dL (5.7-8.2); eGFR 51 See Note
[2025-04-03 07:39] VITALS: BMI 21.1
[2025-04-03 08:00] VITALS: BP 133/70; PULSE 83; RESP 18; TEMP 36.3; O2SAT 96
[2025-04-03 09:44] VITALS: BP 123/72; PULSE 88
[2025-04-03] MEDS: Lisinopril 2.5 MG TABLET 10 MG PO (09:44)
[2025-04-03] MEDS: FLUoxetine HCL 10 MG CAPSULE 20 MG PO (09:44)
[2025-04-03 12:00] VITALS: BP 121/63; PULSE 75; RESP 18; TEMP 36.3; O2SAT 95
--- NOTE | 2025-04-03 14:48 | PD.RESDS ---
Planned Discharge Date 04/03/25 DS: Providers Provider Date of admission: 03/29/25 21:32 Primary care physician: Zeus Santos MD Admitting Provider: Micah Aguirre MD Attending Provider on Admission: Christofer Perales DO Consults: 03/29/25 20:41 Consult to Gastroenterology Stat Comment: Agrees to consult per phone discussion at 20:40. Consulting Provider: Chiqui Yang 03/30/25 08:00 Referral Registered Dietitian Routine Comment: 03/31/25 18:12 Referral Nutritional Services Urgent Comment: Instructions: New PEG tube insertion Attending Provider on DC: Christofer Perales DO Discharging Provider: David Hudson MD DS: Diagnosis Problem List Completed Was Problem List Reviewed/Reconciled?: Yes Hospital Course Hospital Course Hospital course: Oliva Marc is 80 yr female with PMH of hypertension, chronic pain, MDD, on hormone replacement therapy, esophageal cancer sent to ED by Dr. Arenas for G tube placement. Patient had EGD done on last admission beginning of March. 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 Now having vomiting. GI Dr. Yang was consulted. Patient to be admitted for Gtube placement/ possible repeat esophageal dilation and treatment MANAV. For her intractable vomiting patient was treated with Zofran 4 Mg IV every 6 hourly scheduled after which her condition improved. Patient's failed placement of G-tube on 03/30 due to obstruction of food at the GE junction. Had repeat endoscopy on 03/31 with successful removal of food obstruction with Alcala net and subsequent placement of G-tube. This was the initial placement of G-tube for the patient, she never had a G-tube in the past. She was started on tube feeds while in hospital and got her first bolus feed as per dietitian recommendations. She was also trained on PEG tube care and how to administer syringe feeds by both the dietitian and nursing staff. Patient demonstrated good understanding of the procedure. With regards to her acute kidney injury, patient was treated with 2 days of normal saline IV fluids after which her creatinine improved to baseline of 1 from 1.8 on admission. All patient's labs are now returning to baseline. Patient is now clinically stable and fit for discharge to home with home health. Discharge diagnoses: 1. Intractable vomiting secondary to/from carcinoma?resolved 2. Adenocarcinoma of the esophagus 3. First-line placement of G-tube on 03/31/2025 4. Hypokalemia?resolved 5. Acute kidney injury?resolved 6. Primary hypertension 7. Major depressive disorder 8. Anxiety 9. Hormone replacement therapy Discharge plan: - Continue clear liquid diet as tolerated - You can use your G-tube for feeding as directed by the elevator installer - Keep your G-Tube site clean and dry, change dressing 3 times a week or as necessary ? We have stopped your blood pressure medication Maxzide. Do not take any more ? Continue the rest of your home medications as before. - Continue to follow up with Oncology, Dr. Arenas for palliative radiation therapy - Follow up with Gastroenterology, Dr. Yang on 04/07/2025 for repeat endoscopy with possible stent placement. - Follow up with your primary care physician within 1 week of discharge. If you do not have a primary care physician, please follow up with the [facility] Residents clinic ([phone]) ? If you experience any new, worsening or persistent symptoms either call your primary doctor, or dial 911 or present to the emergency department. We are grateful to be able to participate in Ms. Marc's care. We wish her the best. Plan of care discussed with Attending Dr. Diaz Hudson MD PGY 1 Disclaimer: This note was dictated by speech recognition. Minor errors in weaver tire cord may be present due to voice recognition software. Time Spent with Patient Time attestation: Total time spent providing and/or coordinating discharge services: Time spent: Greater than 30 minutes (41) Exam Vital Signs Temp Pulse Resp BP Pulse Ox O2 Del Method O2 Flow Rate 97.4 F 75 18 121/63 95 Room Air 3 04/03/25 12:00 04/03/25 12:00 04/03/25 12:00 04/03/25 12:00 04/03/25 12:00 04/03/25 12:04/02/25 16:00 Narrative Exam Constitutional Alert, oriented x 3 and comfortable. Elderly female, cachectic HEENT Vision grossly intact. Patent nares. Trachea midline Respiratory Chest normal on inspection and clear auscultation bilaterally Cardiovascular S1 and S2 audible, RRR. No murmurs carotid bruit. No gross JVD. Abdominal Soft and non tender to palpation in all quadrants. BS +. PEG tube exit site clean and dry covered with bandage Genitourinary No bladder tenderness, no flank pain. Normal to palpation Musculoskeletal Extremities tone within normal limits. No LE edema. Neurological CN II - XII grossly intact. Extremity motor and sensation grossly intact. Skin Warm, dry and intact. No apparent lesions. Psychiatric Patient has good affect, is cooperative. Discharge Plan Plan Patient Disposition: Home w/HOME HEALTH Patient condition on transfer: Stable and Benefits outweigh risks Care Plan Goals: - Continue clear liquid diet as tolerated - You can use your G-tube for feeding as directed by the elevator installer - Keep your G-Tube site clean and dry, change dressing 3 times a week or as necessary ? We have stopped your blood pressure medication Maxzide. Do not take any more ? Continue the rest of your home medications as before. - Continue to follow up with Oncology, Dr. Arenas for palliative radiation therapy - Follow up with Gastroenterology, Dr. Yang on 04/07/2025 for repeat endoscopy with possible stent placement. - Follow up with your primary care physician within 1 week of discharge. If you do not have a primary care physician, please follow up with the [facility] Residents clinic ([phone]) ? If you experience any new, worsening or persistent symptoms either call your primary doctor, or dial 911 or present to the emergency department. Prescriptions/Referrals Prescriptions/Med Rec: Changed cyclobenzaprine 10 mg tablet 10 mg feeding tube QDAY PRN (Reason: muscle pain) 30 Days Qty: 30 0RF aspirin 81 mg Tablet,Delayed Release (Dr/Ec) 81 mg feeding tube DAILY 30 Days Qty: 30 0RF alprazolam 0.5 mg tablet 0.5 mg feeding tube HS 30 Days Qty: 30 0RF Patient Comments: TAKE 1 TABLET BY MOUTH EVERYDAY AT BEDTIME lisinopril 10 MG tablet 10 tab feeding tube QDAY Qty: 30 0RF gabapentin 300 mg capsule 300 mg feeding tube HS 30 Days Qty: 30 0RF estradiol 2 mg tablet 2 mg feeding tube QDAY 30 Days Qty: 30 0RF ondansetron 4 mg tablet,disintegrating 4 mg feeding tube Q4HR PRN (Reason: Nausea or vomiting) Qty: 60 2RF fluoxetine 20 mg capsule 20 mg feeding tube QDAY 30 Days Qty: 30 0RF Premarin 1.25 MG tablet 1.2 tab feeding tube QDAY Qty: 30 0RF vitamin E 400 UNIT capsule 268 mg feeding tube QDAY 30 Days Qty: 30 0RF cholecalciferol (vitamin D3) [Vitamin D3] 1,000 UNIT tablet 25 mcg feeding tube QDAY 30 Days Qty: 30 0RF Discontinued triamterene-hydrochlorothiazid [Maxzide-25mg] 37.5-25 mg Tablet 25 mg PO DAILY Referrals: Patricio Arenas MD [Physician] - Chiqui Yang MD [Physician] - Zeus Santos MD [Primary Care Provider] - Patient/Caregiver Discharge Instructions Education Materials: Gastrostomy Feeding Tube Care Flushing, Bolus Tube Feeding, Tube Feeding Meds, ED Feeding Tube Insertion Print Language: Afghan Stand Alone Forms: Jodi Award Info., Patient Portal Info Letter Discharge Order Discharge Orders: Discharge (Routine); Ordered 04/03/25 Ordered By: David Hudson Quality Discharge Quality Measures VTE prophylaxis Attestestation MD Attestation I have discussed and was present for the essential components of the discharge history, physical examination, diagnosis, and discharge treatment plan with the resident. I agree with the patient's discharge care as documented by the resident and amended herein by me. Renny Perales, . The patient understood all discharge instructions, all questions were answered satisfactorily. The patient was instructed to return to the Emergency Department is symptoms worsened or persisted. The patient's tube feeding supplies and formulas have been delivered to the patient's house, patient has been instructed on how to administer her bolus tube feeds. Patient understands all discharge instructions, all questions answered satisfactorily, the patient was stable, afebrile, tolerating p.o. intake and ambulatory at time of discharge home Although this document has been carefully reviewed, there may still be some phonetic and other typographical errors. These errors are purely grammatical due to imperfections in the software program and should not be construed in any way to compromise the substance of the patient's medical care during this visit.
--- NOTE | 2025-04-03 15:29 | PD.IMPROG ---
Documentation for date of: 04/03/25 Subjective Subjective Interval history: Patient getting discharge home Will see her next week in my office for repeat endoscopic dilatation of the GE junction Exam Vital Signs Temp Pulse Resp BP Pulse Ox O2 Del Method O2 Flow Rate 97.4 F 75 18 121/63 95 Room Air 3 04/03/25 12:00 04/03/25 12:00 04/03/25 12:00 04/03/25 12:00 04/03/25 12:00 04/03/25 12:00 04/02/25 16:00 Objective Labs 04/03/25 04:58 04/03/25 04:58 Labs: Laboratory Results - last 24 hr 04/03/25 04:58 WBC 6.3 RBC 2.80 L Hgb 8.9 L Hct 26.5 L MCV 95 MCH 31.8 MCHC 33.6 RDW Std Deviation 42.1 Plt Count 219 Neut % (Auto) 52 Lymph % (Auto) 32 [place] % (Auto) 9 Eos % (Auto) 7 Baso % (Auto) 0 Neut # (Auto) 3.3 Lymph # (Auto) 2.0 [place] # (Auto) 0.6 Eos # (Auto) 0.5 Baso # (Auto) 0.0 Immature Gran # (Auto) 0.02 H Absolute Nucleated RBC 0.00 Immature Gran % 0 Nucleated RBC % 0 Sodium 143 Potassium 4.0 D Chloride 105 Carbon Dioxide 29.4 Anion Gap 9 BUN 13 Creatinine 1.1 Estim Creat Clear Calc 32.3 L eGFR 51 L BUN/Creatinine Ratio 12 Glucose 107 H Calculated Osmolality 285 Calcium 8.5 Corrected Calcium 9.0 Phosphorus 4.6 Magnesium 2.0 Total Bilirubin 0.2 L AST 15 ALT < 7 L Alkaline Phosphatase 50 Total Protein 5.3 L Albumin 3.4 Globulin 1.9 L Albumin/Globulin Ratio 1.8 Impressions 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
--- NOTE | 2025-04-03 16:46 | PC.SS ---
Rounding note: Formula delivered to home. [facility] resident to connect with family to confirm arrival of formulas. Syringe for feeding at bedside. Patient to discharge home today if formulas are at home.
--- NOTE | 2025-04-04 08:47 | PC.CC ---
I checked on [facility] that [facility] stated they are not contracted because the IPA is [facility] and [facility] is unable to accept. I called [facility] and informed pt has been discharged yesterday and we don't have any accepting facility. Per [facility] communication, [facility] has delivered the tube feedings yesterday. [facility] stated they are able to see the pt and start of care date will be tomorrow. I sent DC summary and DC orders to [facility] and [facility].
== END 2025-04-03 16:32 | disposition home health service (06) ==
LOC: SERX 18:37 → SERHOLD 21:57 → S3SX 03-30 06:20 → SERHOLD 03-30 14:08 → S3SX 03-30 14:08
PROVIDERS: Physician Assistant; Specialist; Student in an Organized Health Care Education/Training Program; Admitting Provider Internal Medicine; Emergency Provider Emergency Medicine; PCP Family Medicine; Visit Provider Student in an Organized Health Care Education/Training Program
PROC: (CPT 43239; 2025-03-30 20:00)
PROC: 0DH63UZ Insertion of Feeding Device into Stomach, Percutaneous Approach (ICD-10-PCS; CPT 43246; principal; 2025-03-31 17:00)
DX: Z43.1 Encounter for attention to gastrostomy (principal); C15.9 Malignant neoplasm of esophagus, unspecified; N17.9 Acute kidney failure, unspecified; M19.90 Unspecified osteoarthritis, unspecified site; E87.6 Hypokalemia; F17.290 Nicotine dependence, other tobacco product, uncomplicated; F32.9 Major depressive disorder, single episode, unspecified; F41.9 Anxiety disorder, unspecified; G89.29 Other chronic pain; I10 Essential (primary) hypertension; Z66 Do not resuscitate; Z79.890 Hormone replacement therapy; Z01.810 Encounter for preprocedural cardiovascular examination
CPT/HCPCS: 43246; 36415; 71046; 80053; 81001; 82150; 83690; 83735; 84100; 85025; 87081; 93005; 96361; 96365; 96366; 96372; 96375; 99285; A4649; C1725; C1726; G0378; J0360; J0689; J1200; J1644; J2250; J2405; J3010; J3475; J3480; J7030; J7042; J7120; A9270

== ENCOUNTER 2025-04-12 08:52 | Emergency (ER) | payer MEDICARE, SELFPAY ==
[2025-04-12 09:17] VITALS: BP 131/72; PULSE 76; RESP 16; TEMP 36.9; O2SAT 96
--- NOTE | 2025-04-12 10:13 | PC.NURSE ---
PATIENT PRESENTS TO THE ER WITH COMPLAINT OF IRRITATION AROUND PEG / FEEDING TUBE RECENTLY PLACED 04/05/25 DUE TO ESOPHAGEAL CANCER WHICH WAS DIAGNOSED 03/09/[address] TRINIDAD. CURRENTLY NOT RECEIVING ANT CHEMO OR RADIATION THERAPY. HX HTN WITH NO KNOWN ALLERGIES. PATIENT ALSO STATES THAT SHE HAS BEEN FEELING BLOATED WELL HAVING INTERMITTENT ACHING CHEST PAIN X 2 DAYS. PATIENT IS A&O X 3 / GCS 15 AND AMBULATES WITHOUT ASSISTANCE.
[2025-04-12 10:24] VITALS: BP 131/65; PULSE 78; RESP 18; TEMP 36.7; O2SAT 98
--- NOTE | 2025-04-12 11:26 | EDNOTE_ITS ---
ED General RME/HPI General Chief complaint: General Adult/Misc Complain Stated complaint: Feeding tube issue Time Seen by Provider: 04/12/25 08:53 Arrival date/time: 04/12/25 08:52 RME / HPI RME / HPI narrative: 80 y/o f with esophageal cancer who had a feeding tube placed on March 31 due to dysphagia. This was done by her GI specialist Dr. Yang. She noted some increasing irritation around the site therefore comes to the emergency de partment for assessment. Otherwise her feeds have been flowing well through the tube without significant residuals. She has changed from [id number] Ensure to new G-tube feeds therefore is increasing bloating and change in her bowel regularity. She now states she is having more bowel movements, loose, up to 5 times a day with increasing gas. She denies fevers chills or sweats. Related Data Previous Rx's ?Medication ?Instructions ?Recorded alprazolam 0.5 mg tablet 0.5 mg feeding tube HS 1 thu #30 04/03/25 tabs aspirin 81 mg tablet,delayed 81 mg feeding tube DAILY 1 month 04/03/25 release #30 tabs cholecalciferol (vitamin D3) 25 25 mcg feeding tube QD AY 1 month 04/03/25 mcg (1,000 unit) capsule (Vitamin #30 tabs D3) conjugated estrogens 1.25 mg 1.2 tab feeding tube QDAY #30 tabs 04/03/25 tablet (Premarin) cyclobenzaprine 10 mg tablet 10 mg feeding tube QDAY P RN muscle 04/03/25 pain 1 month #30 tabs estradiol 2 mg tablet 2 mg feeding tube QDAY 1 thu #30 04/03/25 tabs fluoxetine 20 mg capsule 20 mg feeding tube QDAY 1 mo nth 04/03/25 #30 caps gabapentin 300 mg capsule 300 mg feeding tube HS 1 thu #30 04/03/25 caps lisinopril 10 mg tablet 10 tab feeding tube QDAY #30 tabs 04/03/25 ondansetron 4 mg disintegrating 4 mg feeding tube Q4HR PRN Nausea 04/03/25 tablet or vomiting #60 tabs vitamin E 268 mg (400 unit) capsule 268 mg feeding tub e QDAY 1 month 04/03/25 #30 caps Allergies Allergy/AdvReac Type Severity Reaction Status Date / Time No Known Allergies Allergy Verified 04/12/25 08:54 ED Exam Narrative Physical exam: GENERAL APPEARANCE: AxOx4, generally well-appearing, no acute distress. HEENT: NC, AT. MMM. EOMI, no scleral icterus, no pallor, oropharynx clear ABDOMEN: Soft, left upper quadrant G-tube with mild skin excoriation, no jaswinder induration or cellulitis, Nontender, nondistended with good bowel sounds heard. BACK: No midline C/T/L spine pain or deformity, No CVAT, no obvious deformity. EXTREMITIES: Without cyanosis, clubbing or edema. MUSCULOSKELETAL: FROM of all major joints, no chest tenderness NEUROLOGICAL: Grossly nonfocal. Alert and oriented, moving all 4 extremities. CN not formally tested but appear grossly intact. Observed to ambulate with normal gait. Skin: Warm and dry without any rash. Course Quality Measures none Vital Signs Vital signs: Vital Signs Temperature 98.5 F 04/12/25 09:17 Pulse Rate 76 04/12/25 09:17 Respiratory Rate 16 04/12/25 09:17 Blood Pressure 131/72 H 04/12/25 09:17 Pulse Oximetry (%) 96 04/12/25 09:17 Oxygen Delivery Method Room Air 04/12/25 09:17 96, RA, patient is not hypoxic Discharge Plan Plan Patient Disposition: HOME (Self Care) Patient condition on transfer: Stable Prescriptions/Referrals Prescriptions/Med Rec: No Action cyclobenzaprine 10 mg tablet 10 mg feeding tube QDAY PRN (Reason: muscle pain) 30 Days Qty: 30 0RF aspirin 81 mg Tablet,Delayed Release (Dr/Ec) 81 mg feeding tube DAILY 30 Days Qty: 30 0RF alprazolam 0.5 mg tablet 0.5 mg feeding tube HS 30 Days Qty: 30 0RF Patient Comments: TAKE 1 TABLET BY MOUTH EVERYDAY AT BEDTIME lisinopril 10 MG tablet 10 tab feeding tube QDAY Qty: 30 0RF gabapentin 300 mg capsule 300 mg feeding tube HS 30 Days Qty: 30 0RF estradiol 2 mg tablet 2 mg feeding tube QDAY 30 Days Qty: 30 0RF ondansetron 4 mg tablet,disintegrating 4 mg feeding tube Q4HR PRN (Reason: Nausea or vomiting) Qty: 60 2RF fluoxetine 20 mg capsule 20 mg feeding tube QDAY 30 Days Qty: 30 0RF Premarin 1.25 MG tablet 1.2 tab feeding tube QDAY Qty: 30 0RF vitamin E 400 UNIT capsule 268 mg feeding tube QDAY 30 Days Qty: 30 0RF cholecalciferol (vitamin D3) [Vitamin D3] 1,000 UNIT tablet 25 mcg feeding tube QDAY 30 Days Qty: 30 0RF Referrals: Zeus Santos MD [Primary Care Provider] - In 1 week Problem List Clinical Impression: G tube feedings Patient/Caregiver Discharge Instructions Education Materials: Understanding PEG Tube Feeding Additional Instructions: Follow-up with your GI specialist as scheduled. Print Language: Maori Stand Alone Forms: [employer] Award Info., Patient Portal Info Letter MDM Narrative [facility] hospital course: Ms. Marc is a clinically well-appearing female with a new feeding tube in her left upper quadrant. She does have mild erythema discoloration around the PEG tube entry area that is not frankly a cellulitis but could be early. She will be put on short course of empiric antibiotics and to follow-up closely with her GI specialist. She otherwise has a benign abdominal exam and is tolerating her feeds with change in bowel habits that would be consistent with her new feeds Clinical Information Provided by patient Medical Records Reviewed [facility] Meds/Rx Considered, not Ordered None Labs/Rad/Tests considered, not Ordered None Chronic Illness/Social Conditions which may negatively complicate care or outcome(s)-explain: Cancer EKG EKG not done Lab Interpretation Labs: none Imaging Imaging interpretation: none Medication Administration(s) none Diagnosis Differential diagnosis: Cellulitis, abscess, skin excoriation Most likely dx, and/or detailed dx discussion: See below Dispositon Disposition: Discharge Home
== END 2025-04-12 12:09 | disposition home or self-care (01) ==
PROVIDERS: Emergency Provider Emergency Medicine; PCP Family Medicine
DX: Z93.1 Gastrostomy status (principal)
CPT/HCPCS: 99281

== ENCOUNTER 2025-04-18 13:10 | Outpatient (RCR) | payer MEDICARE, SELFPAY ==
--- NOTE | 2025-04-18 13:43 | CTCFLWUP_ITS ---
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 Patient with diagnosis of distal esophageal CA, adenocarcinoma moderately differentiated with no loss of expression mismatch repair. Op note Dr. Yang 03/30/2025 revealed extensive and blocking the entire GE junction. Chest abdomen pelvis March 10, 2025 revealed at least 6 soft noncalcified pulmonary nodule throughout lungs. On March 31 patient had feeding tube placed due to dysphagia. Electronically signed by: Patricio Arenas M.D. 04/18/2025 1:40 PM
== END 2025-05-08 23:59 | disposition home or self-care (01) ==
LOC: SCTC 13:10
PROVIDERS: PCP Family Medicine; Referring Provider Family Medicine; Visit Provider Radiology Therapeutic Radiology
DX: C15.5 Malignant neoplasm of lower third of esophagus (principal); R91.1 Solitary pulmonary nodule; R13.10 Dysphagia, unspecified
CPT/HCPCS: 99213; G0463

== ENCOUNTER 2025-05-24 07:55 | Outpatient (CLI) | payer MEDICARE, SELFPAY ==
[2025-05-22 17:53] VITALS: BMI 21.2
[2025-05-23 12:22] LABS: Basophils # (Auto) 0.0 Thou/mm3 (0.0-0.2); Basophils % (Auto) 1 % (0-2.5); Eosinophils # (Auto) 0.4 Thou/mm3 (0.0-0.5); Eosinophils % (Auto) 5 % (0-10); Hematocrit 29.8 % (36.0-46.0); Hemoglobin 9.8 g/dL (12.0-16.0); Immature Granulocytes Auto 0.01 Thou/mm3 (0.00-0.00); Lymphocytes # (Auto) 2.2 Thou/mm3 (1.0-4.8); Lymphocytes % (Auto) 31 % (10-50); Mean Corpuscular HGB Conc 32.9 g/dl (31.0-37.0); Mean Corpuscular Hemoglobin 30.9 pg (25.0-35.0); Mean Corpuscular Volume 94 fL (80-100); Monocytes # (Auto) 0.6 Thou/mm3 (0.0-0.8); Monocytes % (Auto) 8 % (0-12); Neutrophils # (Auto) 4.0 Thou/mm3 (1.8-7.7); Neutrophils % (Auto) 55 % (37-80); Nucleated Red Blood Cell # 0.00 Thou/mm3 (0.00-0.00); Nucleated Red Blood Cell % 0 /100 WBC (0); Platelet Count 315 Thou/mm3 (140-440); RDW Standard Deviation 45.6 fL (36.4-46.3); Red Blood Count 3.17 Miln/mm3 (4.00-5.20); White Blood Count 7.3 Thou/mm3 (3.6-11.0)
[2025-05-23 12:27] LABS: INR 1.1 (0.9-1.3); Partial Thromboplastin Time 28.5 Seconds (22.0-36.0); Prothrombin Time 11.6 Seconds (9.0-12.2)
[2025-05-23 12:29] LABS: Blood Urea Nitrogen 21 mg/dL (9-23); Creatinine (Component) 1.3 mg/dL (0.6-1.3); Estimated Creatinine Clearance 28.6 mL/min (>60); eGFR 42 See Note
[2025-05-24] VITALS (13 sets, daily range): BP systolic 128–157; BP diastolic 60–86; PULSE 60–75; RESP 12–22; TEMP 36.1–37.2; O2SAT 95–100; BMI 21.4
--- NOTE | 2025-05-24 09:00 | XR_ITS ---
Examination: IR venous implantation Port-A-Cath Ultrasound-guided needle placement right internal jugular vein. Fluoroscopy AP Chest, portable single view Exam date and time: May 24, 2025 0918 hours INDICATIONS: Diagnosis esophageal carcinoma, need for long-term intravenous antibiotic therapy. Informed consent provided Technique: A timeout was completed, verifying correct patient, procedure, site, positioning, and special equipment if applicable The patient was placed in a dependent position appropriate for central line placement based on the vein to be cannulated. The patient's right neck was prepped and draped in sterile fashion. Maximum Sterile Barrier Technique used including cap, mask, sterile gown, sterile gloves, and sterile full body drape. If ultrasound technique used: sterile gel and sterile probe covers. Hand Hygiene performed using proper scrub, soap and water, or alcohol-based hand rub. Site right portable apparatus utilized to confirm patency of the right internal jugular vein Utilizing ultrasonographic guidance successful 21-gauge puncture into the right internal jugular vein Ultrasound images were recorded and stored. Successful micropuncture with a 21-gauge needle was performed. 0.18 wire guide was introduced into the IVC under fluoroscopic guidance. The wires is then exchanged for a 0.25 J-wire guide placed in the vena cava. Utilizing blunt dissection pocket formed in the upper right chest, connected to a 8 Divehi 22 cm Port-A-Cath line placed through a venous sheath into the superior vena cava in satisfactory position The attending radiologist was present for the entire procedure Estimated blood loss2 cc. Findings: Under fluoroscopy, the tip of the Port-A-Cath is in good position in the vena cava. Portable chest x-ray, post Port-A-Cath placement, as ordered. Impression: Successful ultrasound-guided needle placement right internal jugular vein. Successful IR venous implantation Port-A-Cath. Fluoroscopy 0.1 minute radiation dose 0.57 milligray 1 spot fluoroscopic chest film AP portable chest completion procedure demonstrates satisfactory position Port-A-Cath tip SVC. May use Port-A-Cath.
[2025-05-24] MEDS: LIDOCAINE INJ PF 1% 30 ML VIAL 20 ML INFL (10:00)
[2025-05-24] MEDS: LIDOCAINE 1% W/EPI 1:100K 20 ML VIAL INFL (10:00)
[2025-05-24] MEDS: HEPARIN SOD LOCK SYR 100 UNIT/ML 500 UNIT INTRACATH (10:00)
[2025-05-24] MEDS: ceFAZolin/D5W 1 GM IVPB 1 GM/50 ML BAG IV ×2 (10:00)
[2025-05-24] MEDS: fentaNYL CIT INJ 50 mCg/ML AMP 2ML 75 MCG IVP (10:27)
[2025-05-24] MEDS: SODIUM CHLORIDE 0.9% 500 ML 500 ML 20 ML IV (10:30)
== END 2025-05-24 12:05 | disposition home or self-care (01) ==
PROVIDERS: Radiology Diagnostic Radiology; PCP Family Medicine; Referring Provider Radiology Therapeutic Radiology; Visit Provider Radiology Therapeutic Radiology
DX: C15.5 Malignant neoplasm of lower third of esophagus (principal); Z01.812 Encounter for preprocedural laboratory examination
CPT/HCPCS: 36558; 36415; 76937; 77001; 82565; 84520; 85025; 85610; 85730; C1769; C1788; C1894; J0689; J1642; J3010; J3490; J7050; J7999

== ENCOUNTER 2025-06-16 09:57 | Outpatient (RCR) | payer MEDICARE, SELFPAY ==
--- NOTE | 2025-06-18 22:53 | CTCCONSULT_ITS ---
Patient: DYLAN MARC : 1945 MR#: [id number] Page 3 of 4 CONSULTATION NOTE DATE OF CONSULTATION: 06/12/2025 NAME: DYLAN MARC ACCOUNT: [id number] : 1945 AGE: 80 REFERRING PHYSICIAN: Zeus Santos MD PRIMARY PHYSICIAN: Zeus Santos MD REASON FOR VISIT: New diagnosis of esophageal cancer ONCOLOGY HISTORY: DIAGNOSIS: Malignant neoplasm of lower third of esophagus [ICD10] C15.5 DATE OF DIAGNOSIS: 03/11/2025 STAGE/TNM: Adenocarcinoma invasive moderate to poorly differentiated Mismatch repair proteins have no loss of expression TREATMENT HISTORY: Care?Plan Start?Date Cycle Day Intent FLOT?neoadjuvant 06/12/2025 1 14 Induction-Primary HISTORY OF PRESENT ILLNESS: 80-year-old female was seen in the clinic. Patient was diagnosed with the lower third of the esophageal cancer in March 2025. At that time she had nausea vomiting and electrolyte imbalance and CT scan showed multiple soft noncalcified pulmonary nodules both lungs L as malignant appearing intrinsic severe stenosis 35 cm from the incisor. To Dr. Yang saw Ms. Marc and dilatation was performed along with the biopsy. Pathology revealed invasive moderate to poorly differentiated adenocarcinoma. HER2 was negative by FISH OTHER MEDICAL HISTORY/CONDITIONS: Adenocarcinoma esophagus - dx 03/11/25 HTN Restlss legs syndrome/ cramping legs Hc [place] Fever - G-tube placement PC placement Back surgeries x 2 ANDRES; BSO - 1976 Several volodymyr breast sugeries for benign cycts- starting age 21 Appendectomy - 1964 T and A - as child FAMILY HISTORY: Patient?denies?family?cancer?history. 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 Tobacco?Pack?per?Day:?1 Tobacco?Use?Years:?60 Tobacco?Use:?PT?VAPING ETOH?Use:?DENIES Drug?Note:?DENIES Social?History?Note:?LIVE?[employer] HISTORY: Menarche?-?Age:?13 Menopause:?1976 Hormone?Use:?3?MTHS?BCP???1960 :?1 Live?Births:?1 Age?1st?:?17 MEDICATIONS: 1. Compazine - 5 mg 1 tab every 6 hours 2. dexamethasone - 4 mg 2 tab twice a day 3. Emend - 125 mg (1)- 80 mg (2) 1 Pack Daily 4. estradiol - 2 mg 1 tab Daily 5. gabapentin - 100 mg 1 tab Three times a day 6. ondansetron - 8 mg 1 tab every 8 hours 7. PROzac - 40 mg 1 Capsule Daily 8. triamterene-hydrochlorothiazid - 37.5-25 mg 1 tab Daily 9. Vitamin D2 - 1,000 unit 1 Capsule Daily 10. vitamin E - 400 unit 1 tab Daily 11. Xanax - 0.5 mg 1 tab Every day before sleep Medications Last Reconciled by Nitza Napier RN on 06/12/2025 ALLERGIES: No Known Drug Allergies REVIEW OF SYSTEMS: A complete 14-point review of systems was performed and is negative except as noted in interval history. PHYSICAL EXAMINATION: VITAL SIGNS: Temperature?99.8, B/P?171/77, Height?63.5?inches, Oxygen?Saturation?98% Weight?123?lbs PAIN: 0 - No pain ECOG Performance Status: 1 - Symptomatic; ambulatory; restricted in strenuous activity GENERAL APPEARANCE: Appears well, in no apparent distress, appropriately interactive. HEENT: Normocephalic, no temporal wasting, normal conjunctiva, no scleral icterus, normal hearing, lips without lesions, neck normal range of motion. CARDIOVASCULAR: Not assessed. PULMONARY: Normal respiratory effort, no respiratory distress or use of accessory muscles, speaking in full sentences, no tachypnea. EXTREMITIES: No pedal edema or cyanosis. SKIN: Normal skin appearance. NEUROLOGIC: Alert and oriented x4. PSHYCHIATRIC: Appropriate affect, mood normal, behavior normal, intact thought and speech. LABORATORY DATA: I have personally reviewed and interpreted each of the patient?s relevant lab tests, abnormal findings are below: Date 04/03/25 05/23/25 ??WHITE?BLOOD?COUNT?(Thou/mm3) 6.3 7.3 ??RED?BLOOD?COUNT?(Miln/mm3) 2.80?L 3.17?L ??HEMOGLOBIN?(gm/dl) 8.9?L 9.8?L ??HEMATOCRIT?(%) 26.5?L 29.8?L ??PLATELET?COUNT?(Thou/mm3) 219 315 ??NEUTROPHILS?%,?AUTO?(%) 52 55 ??LYMPH?%,?AUTO?(%) 32 31 ??NEUTROPHILS,?AUTO?(Thou/mm3) 3.3 4.0 ??BLOOD?UREA?NITROGEN?(mg/dL) ? 21 ??CREATININE?(mg/dL) ? 1.30 ASSESSMENT/PLAN: Adenocarcinoma of the esophagus lower third Patient need to start chemotherapy with FLOT Discussed that neoadjuvant therapy and Ms. Marc have good response will follow- up with concurrent chemoradiation or referral for surgery as needed Will reevaluate Ms. Marc after 4 cycles of chemotherapy Patient need port catheter placement referral placed Patient already have follow-up with nutrition Start chemo DIANNE Overall prognosis poor ORDERS: Order # Description [id number] Follow Up Appointment [id number] Comprehensive Metabolic Panel - 12 + CBC with Auto Diff + Follow Up [id number] Scan + Chest + With W/O Contrast [id number] CBC + Comprehensive Metabolic Panel + CEA [id number] Lab Appointment RETURN TO CLINIC: I reviewed the diagnosis, prognosis, and recommended treatment/procedure options with the patient (and/or their legal sales representative), including the potential benefits, risks, side effects and alternative therapies. We also discussed the option of no treatment and the possibility of clinical trial participation, if applicable. All questions were addressed, and they demonstrated understanding. They provided informed consent to proceed with the proposed plan of care. BILLING AND COMPLIANCE: I reviewed external records from providers outside my specialty as summarized above. I spent a total of 50 minutes on this patient?s care on the day of their visit excluding time spent related to any billed procedures. This time includes time spent with the patient as well as time spent documenting in the medical record, reviewing patients records and tests, obtaining history, placing orders, communicating with other healthcare professionals, counseling the patient, family or caregiver, and/or care coordination for the diagnoses above. Electronically Signed by: Lalo Barraza MD T: 10:50 PM CC: PCP: Zeus Santos Referring: Zeus Santos This document was completed utilizing speech recognition software. Grammatical errors, random word insertions, pronoun errors, and incomplete sentences are an occasional consequence of this system due to software limitations, ambient noise, and hardware issues. Any formal questions or concerns about the content, text or information contained within the body of this dictation should be directly addressed to the provider for clarification.
== END 2025-07-09 23:59 | disposition home or self-care (01) ==
LOC: SCTC 09:57
PROVIDERS: PCP Family Medicine; Referring Provider Family Medicine; Visit Provider Internal Medicine Hematology & Oncology
DX: C15.5 Malignant neoplasm of lower third of esophagus (principal); R91.8 Other nonspecific abnormal finding of lung field
CPT/HCPCS: 99213; G0463

== ENCOUNTER → 2025-07-11 | Outpatient (CLI) | payer MEDICARE, SELFPAY ==
--- NOTE | 2025-07-11 09:30 | XR_ITS ---
EXAMINATION: PET/CT FUSION SKULL TO THIGH EXAM DATE AND TIME: July 11, 2025 1027 hours, comparison CT chest abdomen pelvis March 10, 2025 INDICATIONS: Diagnosis esophageal cancer, pulmonary nodules on CT chest March 10, 2025, restaging CTDI:vol (mGy) 2.79 DLP: (mGycm) 254.96 PROCEDURE: 13.7 mCi FDG was administered intravenously To allow for distribution and uptake of radiotracer, the patient was allowed to rest quietly in a shielded room. Imaging was performed on an integrated 16-slice PET/CT scanner, with scanning from the skull base to the mid thigh. Serum blood glucose at the time of the injection was measured 98 mg/dL. CT scanning was performed without oral or intravenous contrast material. FINDINGS: Head and Neck: 10 mm hypermetabolic left cervical lymph node posterior to the angle of mandible, axial image 35 Hypermetabolic focus in the anterior tongue, sagittal image 40 axial image 43, measuring 16 mm Chest: Intensely hypermetabolic esophageal mass at least 5.5 x 4.0 x 4.4 cm which extends to the gastroesophageal junction Weakly hypermetabolic spiculated pulmonary nodule left upper lobe, 11 mm, image 76 Abdomen and Pelvis: There is no sonny hypermetabolism in retroperitoneal or pelvic chains. The spleen is normal in size and FDG avidity. Musculoskeletal: Marrow uptake is within normal range. IMPRESSION: 10 mm hypermetabolic left cervical lymph node posterior to the angle of the mandible Hypermetabolic focus anterior tongue, 16 mm, suggest MRI soft tissue neck follow-up pre and post intravenous contrast Intensely hypermetabolic esophageal mass, distal esophagus extending into the gastroesophageal junction, 5.5 x 4.0 x 4.4 cm Weakly hypermetabolic spiculated pulmonary nodule left upper lobe, 11 mm
== END | disposition home or self-care (01) ==
PROVIDERS: PCP Family Medicine; Referring Provider Radiology Therapeutic Radiology; Visit Provider Radiology Therapeutic Radiology
DX: K20.80 Other esophagitis without bleeding (principal); C15.5 Malignant neoplasm of lower third of esophagus
CPT/HCPCS: 78815; A9552

== ENCOUNTER 2025-08-08 12:54 | Outpatient (RCR) | payer MEDICARE, SELFPAY ==
--- NOTE | 2025-07-13 11:19 | CTCFLWUP_ITS ---
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 Patient with diagnosis of distal esophageal CA adenocarcinoma moderately differentiated with no loss of expression mismatch repair. According to op note of Dr. Yang 5 12/11/2024 there was extensive and blocking of the entire GE junction. Since March 31 patient had a feeding tube placed due to dysphagia. PET scan 07/11/2025 intensely hypermetabolic esophageal mass distal esophagus extending to GE junction 5.5 x 4.0 x 4.4 cm. There is also weakly hypermetabolic spiculated pulmonary nodule left upper lobe 11 mm. 10 mm hypermetabolic left cervical node posterior to angle of the mandible and anterior tongue 16 mm. Has already seen Dr. Barraza who has scheduled her for Taxol carboplatin chemo Concurrent chemoradiation or surgery to be considered afterward. This was discussed with the patient. I will see her again in 3 months time. Electronically signed by: Patricio Arenas M.D. 07/13/2025 11:17 AM
[2025-07-24 16:07] LABS: Basophils # (Auto) 0.1 Thou/mm3 (0.0-0.2); Basophils % (Auto) 1 % (0-2.5); Eosinophils # (Auto) 0.5 Thou/mm3 (0.0-0.5); Eosinophils % (Auto) 6 % (0-10); Hematocrit 27.7 % (36.0-46.0); Hemoglobin 8.9 g/dL (12.0-16.0); Immature Granulocytes Auto 0.01 Thou/mm3 (0.00-0.00); Lymphocytes # (Auto) 1.7 Thou/mm3 (1.0-4.8); Lymphocytes % (Auto) 22 % (10-50); Mean Corpuscular HGB Conc 32.1 g/dl (31.0-37.0); Mean Corpuscular Hemoglobin 30.3 pg (25.0-35.0); Mean Corpuscular Volume 94 fL (80-100); Monocytes # (Auto) 0.5 Thou/mm3 (0.0-0.8); Monocytes % (Auto) 7 % (0-12); Neutrophils # (Auto) 5.0 Thou/mm3 (1.8-7.7); Neutrophils % (Auto) 64 % (37-80); Nucleated Red Blood Cell # 0.00 Thou/mm3 (0.00-0.00); Nucleated Red Blood Cell % 0 /100 WBC (0); Platelet Count 290 Thou/mm3 (140-440); RDW Standard Deviation 47.8 fL (36.4-46.3); Red Blood Count 2.94 Miln/mm3 (4.00-5.20); White Blood Count 7.8 Thou/mm3 (3.6-11.0)
[2025-07-24 16:33] LABS: Carcinoembryonic Antigen 7.8 ng/mL (0.0-5.0)
[2025-07-24 16:41] LABS: Alanine Aminotransferase 8 U/L (10-49); Albumin, Serum 3.9 gm/dL (3.4-4.8); Albumin/Globulin Ratio 1.8 (1.2-2.2); Alkaline Phosphatase 56 U/L (46-116); Anion Gap 11 (7-16); Aspartate Amino Transferase 18 U/L (0-34); BUN/Creatinine Ratio 15 Ratio (12-20); Bilirubin,Total 0.3 mg/dL (0.3-1.2); Blood Urea Nitrogen 16 mg/dL (9-23); Calcium 8.9 mg/dL (8.3-10.6); Calcium (Corrected) 9.0 mg/dL (8.5-10.1); Carbon Dioxide 23.7 mMol/L (20.0-31.0); Chloride 107 mMol/L (98-107); Creatinine (Component) 1.1 mg/dL (0.6-1.3); Globulin 2.2 gm/dL (2.3-3.5); Glucose 89 mg/dL (74-106); Osmolality,Calculated 283 (275-295); Potassium 4.0 mMol/L (3.4-5.1); Sodium 142 mMol/L (136-145); Total Protein 6.1 gm/dL (5.7-8.2); eGFR 51 See Note
[2025-08-01 12:38] LABS: Basophils # (Auto) 0.0 Thou/mm3 (0.0-0.2); Basophils % (Auto) 0 % (0-2.5); Eosinophils # (Auto) 0.2 Thou/mm3 (0.0-0.5); Eosinophils % (Auto) 2 % (0-10); Hematocrit 28.5 % (36.0-46.0); Hemoglobin 9.5 g/dL (12.0-16.0); Immature Granulocytes Auto 0.09 Thou/mm3 (0.00-0.00); Lymphocytes # (Auto) 1.4 Thou/mm3 (1.0-4.8); Lymphocytes % (Auto) 17 % (10-50); Mean Corpuscular HGB Conc 33.3 g/dl (31.0-37.0); Mean Corpuscular Hemoglobin 30.1 pg (25.0-35.0); Mean Corpuscular Volume 90 fL (80-100); Monocytes # (Auto) 0.2 Thou/mm3 (0.0-0.8); Monocytes % (Auto) 3 % (0-12); Neutrophils # (Auto) 6.5 Thou/mm3 (1.8-7.7); Neutrophils % (Auto) 77 % (37-80); Nucleated Red Blood Cell # 0.00 Thou/mm3 (0.00-0.00); Nucleated Red Blood Cell % 0 /100 WBC (0); Platelet Count 309 Thou/mm3 (140-440); RDW Standard Deviation 46.3 fL (36.4-46.3); Red Blood Count 3.16 Miln/mm3 (4.00-5.20); White Blood Count 8.4 Thou/mm3 (3.6-11.0)
[2025-08-01 13:05] LABS: Carcinoembryonic Antigen 8.7 ng/mL (0.0-5.0)
[2025-08-01 13:06] LABS: Alanine Aminotransferase 11 U/L (10-49); Albumin, Serum 3.7 gm/dL (3.4-4.8); Albumin/Globulin Ratio 1.8 (1.2-2.2); Alkaline Phosphatase 60 U/L (46-116); Anion Gap 10 (7-16); Aspartate Amino Transferase 15 U/L (0-34); BUN/Creatinine Ratio 18 Ratio (12-20); Bilirubin,Total 0.2 mg/dL (0.3-1.2); Blood Urea Nitrogen 23 mg/dL (9-23); Calcium 8.7 mg/dL (8.3-10.6); Calcium (Corrected) 8.9 mg/dL (8.5-10.1); Carbon Dioxide 26.4 mMol/L (20.0-31.0); Chloride 103 mMol/L (98-107); Creatinine (Component) 1.3 mg/dL (0.6-1.3); Globulin 2.1 gm/dL (2.3-3.5); Glucose 137 mg/dL (74-106); Osmolality,Calculated 283 (275-295); Potassium 3.9 mMol/L (3.4-5.1); Sodium 139 mMol/L (136-145); Thyroid Stimulating Hormone 1.34 uIU/mL (0.55-4.78); Total Protein 5.8 gm/dL (5.7-8.2); eGFR 42 See Note
[2025-08-08 14:09] LABS: Basophils # (Auto) 0.0 Thou/mm3 (0.0-0.2); Basophils % (Auto) 0 % (0-2.5); Eosinophils # (Auto) 0.1 Thou/mm3 (0.0-0.5); Eosinophils % (Auto) 3 % (0-10); Hematocrit 25.0 % (36.0-46.0); Immature Granulocytes Auto 0.02 Thou/mm3 (0.00-0.00); Lymphocytes # (Auto) 1.5 Thou/mm3 (1.0-4.8); Lymphocytes % (Auto) 32 % (10-50); Mean Corpuscular HGB Conc 32.0 g/dl (31.0-37.0); Mean Corpuscular Hemoglobin 29.7 pg (25.0-35.0); Mean Corpuscular Volume 93 fL (80-100); Monocytes # (Auto) 0.4 Thou/mm3 (0.0-0.8); Monocytes % (Auto) 9 % (0-12); Neutrophils # (Auto) 2.7 Thou/mm3 (1.8-7.7); Neutrophils % (Auto) 56 % (37-80); Nucleated Red Blood Cell # 0.00 Thou/mm3 (0.00-0.00); Nucleated Red Blood Cell % 0 /100 WBC (0); Platelet Count 297 Thou/mm3 (140-440); RDW Standard Deviation 46.6 fL (36.4-46.3); Red Blood Count 2.69 Miln/mm3 (4.00-5.20); White Blood Count 4.9 Thou/mm3 (3.6-11.0)
[2025-08-08 14:16] LABS: Hemoglobin 8.0 g/dL (12.0-16.0)
[2025-08-08 14:23] LABS: Alanine Aminotransferase 10 U/L (10-49); Albumin, Serum 3.9 gm/dL (3.4-4.8); Albumin/Globulin Ratio 1.7 (1.2-2.2); Alkaline Phosphatase 56 U/L (46-116); Anion Gap 9 (7-16); Aspartate Amino Transferase 13 U/L (0-34); BUN/Creatinine Ratio 18 Ratio (12-20); Bilirubin,Total < 0.2 mg/dL (0.3-1.2); Blood Urea Nitrogen 21 mg/dL (9-23); Calcium 8.8 mg/dL (8.3-10.6); Calcium (Corrected) 8.9 mg/dL (8.5-10.1); Carbon Dioxide 25.1 mMol/L (20.0-31.0); Chloride 105 mMol/L (98-107); Creatinine (Component) 1.2 mg/dL (0.6-1.3); Globulin 2.3 gm/dL (2.3-3.5); Glucose 98 mg/dL (74-106); Osmolality,Calculated 280 (275-295); Potassium 4.2 mMol/L (3.4-5.1); Sodium 139 mMol/L (136-145); Total Protein 6.2 gm/dL (5.7-8.2); eGFR 46 See Note
== END 2025-08-08 23:59 | disposition home or self-care (01) ==
LOC: SCTC 12:54
PROVIDERS: Internal Medicine Hematology & Oncology; PCP Family Medicine; Referring Provider Family Medicine; Visit Provider Radiology Therapeutic Radiology
DX: Z51.11 Encounter for antineoplastic chemotherapy (principal); C15.5 Malignant neoplasm of lower third of esophagus; R91.1 Solitary pulmonary nodule
CPT/HCPCS: 36591; 80053; 82378; 84443; 85025; 96367; 96375; 96413; 96415; 96417; 99212; A4216; J1100; J1453; J1642; J2405; J3490; J7040; J7050; J7060; J9045; J9267; A9270; G0463

== ENCOUNTER → 2025-08-15 | Outpatient (CLI) | payer MEDICARE, SELFPAY ==
--- NOTE | 2025-08-15 16:01 | XR_ITS ---
Examination: CT chest with intravenous contrast CT chest without intravenous contrast 2-D reconstructions Date and time of exam: August 15, 2025, 195 hours, comparison PET/CT scan 07/11/2025, CT chest abdomen pelvis March 10, 2025 INDICATIONS: Malignant neoplasm of lower third of the esophagus, diagnosed 5 months ago, restaging, PET/CT scan July 11, 2025 hypermetabolic distal esophageal mass extending into the gastroesophageal junction, 5.5 x 4.0 x 4.4 cm, weakly hypermetabolic spiculated pulmonary nodule left upper lobe 11 mm CTDI:vol (mGy) 14.7 DLP: (mGycm) 528 Technique: Multiple axial sections of the thorax have been obtained. 3 mm slice thickness, from the hemidiaphragms to above the apices of the lungs. Mediastinal and lung density settings have been obtained. Intravenous contrast administered 60 cc Isovue-370. Noncontrast images have also been obtained. 2-D sagittal coronal images obtained. Low dose protocols were performed. One or more of the following dose reduction techniques were used; automated exposure control, adjustment of the mA and/or KV according to patient size, use of iterative reconstruction technique. Findings: No thoracic aortic aneurysm dilatation Interval 17 mm precarinal lymphadenopathy compared to [address] chest March 10, 2025 19 mm right hilar adenopathy not seen on the March 10, 2025 exam Esophageal mass beginning at the level of the karen and extending caudad to the gastroesophageal junction, the esophagus measuring up to 28 mm in thickness, at the gastroesophageal junction 5 x 4.5 cm Soft areas of pneumonia diffusely in both lungs more severe in the right upper lobe Multiple soft pulmonary nodules, at least 10 nodules, ranging in size from 2 to 11 mm No visualized liver or splenic lesion No gallstones No hydronephrosis Prominent osteopenia IMPRESSION: Esophageal mass on this study appears to extend from the tracheal bifurcation to the gastroesophageal junction, more prominent compared to PET CT scan 07/11/2025. Subcarinal lymphadenopathy 17 mm compared to [address] chest March 10, 2025 19 mm right hilar adenopathy not seen on the CT chest March 10, 2025 Soft areas of pneumonia in both lungs Progression of pulmonary nodular metastatic disease, at least 10 presumed metastatic pulmonary nodules ranging in size from 2 to 11 mm, the largest nodule, 11 mm, stable compared to the PET/CT scan July 11, 2025, the additional nodules are not seen on the CT chest March 10, 2025
== END | disposition home or self-care (01) ==
LOC: CCTX 15:43
PROVIDERS: PCP Family Medicine; Referring Provider Internal Medicine Hematology & Oncology; Visit Provider Internal Medicine Hematology & Oncology
DX: K22.89 Other specified disease of esophagus (principal); R59.0 Localized enlarged lymph nodes; J18.9 Pneumonia, unspecified organism; R91.8 Other nonspecific abnormal finding of lung field; C15.5 Malignant neoplasm of lower third of esophagus
CPT/HCPCS: 71270; A4649; Q9967

== ENCOUNTER 2025-08-16 13:46 | Emergency (ER) | payer MEDICARE, SELFPAY ==
[2025-08-16 13:47] VITALS: BMI 20.9
[2025-08-16 13:56] VITALS: BP 157/54; PULSE 83; RESP 17; TEMP 36.8; O2SAT 98
--- NOTE | 2025-08-16 14:05 | EKG_ITS ---
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
--- NOTE | 2025-08-16 14:05 | PD.EDRME ---
Rapid Medical Screening Exam RME Arrival date/time: 08/16/25 13:46 80-year-old female presents to the emergency department today for complaints of generalized fatigue patient reports that she was sent here by cancer treatment center for a blood transfusion Chief Complaint: Weakness Vital signs: Vital Signs Temperature 98.2 F 08/16/25 13:56 Pulse Rate 83 08/16/25 13:56 Respiratory Rate 17 08/16/25 13:56 Blood Pressure 157/54 H 08/16/25 13:56 Pulse Oximetry (%) 98 08/16/25 13:56 Oxygen Delivery Method Room Air 08/16/25 13:56
[2025-08-16 14:55] LABS: Basophils # (Auto) 0.0 Thou/mm3 (0.0-0.2); Basophils % (Auto) 0 % (0-2.5); Eosinophils # (Auto) 0.1 Thou/mm3 (0.0-0.5); Eosinophils % (Auto) 1 % (0-10); Immature Granulocytes Auto 0.06 Thou/mm3 (0.00-0.00); Lymphocytes # (Auto) 1.5 Thou/mm3 (1.0-4.8); Lymphocytes % (Auto) 21 % (10-50); Mean Corpuscular HGB Conc 32.1 g/dl (31.0-37.0); Mean Corpuscular Hemoglobin 29.6 pg (25.0-35.0); Mean Corpuscular Volume 92 fL (80-100); Monocytes # (Auto) 0.7 Thou/mm3 (0.0-0.8); Monocytes % (Auto) 10 % (0-12); Neutrophils # (Auto) 4.9 Thou/mm3 (1.8-7.7); Neutrophils % (Auto) 67 % (37-80); Nucleated Red Blood Cell # 0.00 Thou/mm3 (0.00-0.00); Nucleated Red Blood Cell % 0 /100 WBC (0); Platelet Count 390 Thou/mm3 (140-440); RDW Standard Deviation 47.6 fL (36.4-46.3); Red Blood Count 2.06 Miln/mm3 (4.00-5.20); White Blood Count 7.3 Thou/mm3 (3.6-11.0)
[2025-08-16 15:06] LABS: INR 1.0 (0.9-1.3); Partial Thromboplastin Time 27.4 Seconds (22.0-36.0); Prothrombin Time 10.8 Seconds (9.0-12.2)
[2025-08-16 15:25] LABS: Alanine Aminotransferase 11 U/L (10-49); Albumin, Serum 3.5 gm/dL (3.4-4.8); Albumin/Globulin Ratio 1.7 (1.2-2.2); Alkaline Phosphatase 54 U/L (46-116); Anion Gap 9 (7-16); Aspartate Amino Transferase 16 U/L (0-34); BUN/Creatinine Ratio 23 Ratio (12-20); Bilirubin,Total < 0.2 mg/dL (0.3-1.2); Blood Urea Nitrogen 27 mg/dL (9-23); Calcium 9.0 mg/dL (8.3-10.6); Calcium (Corrected) 9.4 mg/dL (8.5-10.1); Carbon Dioxide 24.6 mMol/L (20.0-31.0); Chloride 107 mMol/L (98-107); Creatinine (Component) 1.2 mg/dL (0.6-1.3); Estimated Creatinine Clearance 30.9 mL/min (>60); Globulin 2.1 gm/dL (2.3-3.5); Glucose 139 mg/dL (74-106); Osmolality,Calculated 288 (275-295); Potassium 3.9 mMol/L (3.4-5.1); Sodium 141 mMol/L (136-145); Total Protein 5.6 gm/dL (5.7-8.2); Troponin I < 0.020 ng/mL (0.0-0.045); eGFR 46 See Note
[2025-08-16 15:27] LABS: Hemoglobin 6.1 g/dL (12.0-16.0)
[2025-08-16 15:28] LABS: Hematocrit 19.0 % (36.0-46.0)
[2025-08-16 17:04] LABS: Path Review Blood Smear Sent to Pathologist
--- NOTE | 2025-08-16 20:02 | PD.EDWEAK ---
ED Weakness RME/HPI General Chief complaint: Weakness Stated complaint: SENT BY [facility] FOR POSS. BLOOD TRANSFUSION Time Seen by Provider: 08/16/25 16:49 Arrival date/time: 08/16/25 13:46 RME / HPI RME / HPI Narrative: 80-year-old female presents to the emergency department today for complaints of generalized fatigue patient reports that she was sent here by cancer treatment center for a blood transfusion. Patient was recently diagnosed with cancer of esophagus, already on the fourth week of chemotherapy, and yesterday was noted to have a hemoglobin of 6.1. Was advised to come to the emergency room for blood transfusion. Patient is absolute NPO. On tube feeding. Patient denies any complaint except for generalized body weakness fatigue, easy fatigability and dyspnea on exertion. No chest pain no abdominal pain. She denies any bleeding in the rectum Related Data Home Medications ?Medication ?Instructions ?Recorded ?Confirmed triamterene 37.5 1 cap feeding tube DAILY 05/24/25 05/24/25 mg-hydrochlorothiazide 25 mg capsule Previous Rx's ?Medication ?Instructions ?Recorded alprazolam 0.5 mg tablet 0.5 mg feeding tube HS 1 month #30 04/03/25 tabs aspirin 81 mg tablet,delayed 81 mg feeding tube DAILY 1 month 04/03/25 release #30 tabs Held on 05/24/25. Instructions: Resume on 05/26/25. resume Thursday05/26/25 cholecalciferol (vitamin D3) 25 25 mcg feeding tube QDAY 1 month 04/03/25 mcg (1,000 unit) capsule (Vitamin #30 tabs D3) cyclobenzaprine 10 mg tablet 10 mg feeding tube QDAY PRN muscle 04/03/25 pain 1 month #30 tabs estradiol 2 mg tablet 2 mg feeding tube QDAY 1 month #30 04/03/25 tabs fluoxetine 20 mg capsule 20 mg feeding tube QDAY 1 month 04/03/25 #30 caps gabapentin 300 mg capsule 300 mg feeding tube HS 1 month 04/03/25 caps ondansetron 4 mg disintegrating 4 mg feeding tube Q4HR PRN Nausea 04/03/25 tablet or vomiting #60 tabs vitamin E 268 mg (400 unit) capsule 268 mg feeding tube QDAY 1 month 04/03/25 #30 caps Allergies Allergy/AdvReac Type Severity Reaction Status Date / Time No Known Allergies Allergy Verified 08/16/25 13:50 Review of Systems Review of Systems Narrative Review of Systems: Review of system reviewed and within normal limits except mentioned in HPI ED Exam Narrative Physical exam: VITAL SIGNS: Reviewed. GENERAL APPEARANCE: Alert and interactive, follows commands, no acute distress, HEAD AND FACE: Non-traumatic. ENT: PERRL, pale conjunctiva, eyelid no trauma, Mucous membrane moist. NECK: Supple, nontender, no nuchal rigidity. CHEST: No tenderness, no crepitus, no paradoxical movement, no retractions. LUNGS: Clear, well ventilated, symmetric, no rales, no wheezing, no ronchi, no stridor, good breath sounds bilaterally. HEART: Regular rate, regular rhythm, no murmur, no gallops. ABDOMEN: Soft, positive bowel sounds, nondistended, no guarding, nontender, no rebound, no masses, PEG tube intact RECTAL: Deferred. GENITAL: Deferred. NEUROLOGICAL: Gross motor function intact sensory function intact, Appropriate for age. MUSCULOSKELETAL: low back nontender, full range of motion. EXTREMITIES: Nontender, full range of motion. SKIN: Color pale, dry, no rash, no lacerations, no abrasions, no contusions. LYMPHATICS: Deferred. Course Quality Measures none Orders Category Date Time Status EKG (ED ONLY) *Do not use* NOW Care 08/16/25 14:05 Completed Insert IV NOW Care 08/16/25 14:05 Completed Transfuse,blood/blood products NOW Care 08/16/25 15:32 Completed Transfuse,blood/blood products NOW Care 08/16/25 15:36 Completed EKG (ED Only) Stat Exams 08/16/25 14:05 Draft CBC Stat Lab 08/16/25 14:21 Completed Comprehensive Metabolic Panel Stat Lab 08/16/25 14:21 Completed PT [Prothrombin Time with INR] Stat Lab 08/16/25 14:21 Completed PTT [Partial Thromboplastin Time] Stat Lab 08/16/25 14:21 Completed Path Review Blood Smear Stat Lab 08/16/25 14:21 Completed Troponin I Stat Lab 08/16/25 14:21 Completed Type and Screen Stat Lab 08/16/25 14:21 Completed prbc [Red Blood Cells] Stat Lab 08/16/25 14:21 Completed ALPRazoLAM [Xanax] Med 08/17/25 01:49 Discontinued 0.5 mg PO X1 ONE Ondansetron Odt [Zofran Odt] Med 08/17/25 01:49 Discontinued 4 mg PO X1 ONE Vital Signs Vital signs: Vital Signs Temperature 98.2 F 08/16/25 13:56 Pulse Rate 83 08/16/25 13:56 Respiratory Rate 17 08/16/25 13:56 Blood Pressure 157/54 H 08/16/25 13:56 Pulse Oximetry (%) 98 08/16/25 13:56 Oxygen Delivery Method Room Air 08/16/25 13:56 Weakness MDM Narrative MDM Narrative:: 80-year-old female presents to the emergency department today for complaints of generalized fatigue patient reports that she was sent here by cancer treatment center for a blood transfusion. Patient was recently diagnosed with cancer of esophagus, already on the fourth week of chemotherapy, and yesterday was noted to have a hemoglobin of 6.1. Was advised to come to the emergency room for blood transfusion. Patient is absolute NPO. On tube feeding. Patient denies any complaint except for generalized body weakness fatigue, easy fatigability and dyspnea on exertion. No chest pain no abdominal pain. She denies any bleeding in the rectum Patient received 2 units of packed RBC without any complication noted. Stable for discharge home Patient data External records reviewed:: None Clinical information provided by:: patient Social determinants that could affect healthcare access:: none Patient has the following chronic illnesses:: History of cancer of esophagus, currently on chemotherapy, history of chronic anemia How is presenting disease/condition affected by chronic disease/condition?: exacerbated by Evaluation data The following diagnostics were reviewed and interpreted by me:: lab results Lab and/or radiology exams considered but not ordered:: None Interpretation Summary: See [facility] Medications / Prescriptions Medications or Prescriptions considered but not ordered:: None Medication administrations:: Medication Administration History Discontinued Medications Alprazolam (Alprazolam 0.25 Mg Tablet) 0.5 mg PO X1 ONE Stop: 08/17/25 01:50 Last Admin: 08/17/25 02:05 Dose: 0.5 mg Documented By: CHEVY Ondansetron HCl (Ondansetron Odt 4 Mg Tabrap) 4 mg PO X1 ONE; Protocol Stop: 08/17/25 01:50 Alprazolam, Zofran Consultations Consultation(s) initiated? (list below): No Diagnosis Weakness Differential Diagnosis: anemia and dehydration Most likely diagnosis given after review of the tests above:: History of cancer of the esophagus, anemia Admission Indicated Admission indicated?: not indicated Admission Request Was there a request for admission?: No Disposition Plan Disposition Plan: Discharge Discharge Attestation Discharge Attestation: The patient and all family members were given an opportunity to ask questions and understood the discharge instructions. Discharge instructions specifically effects, indications for sooner follow up or return to the emergency department, and the expected course of current diagnosis. Patient condition: Stable Discharge Plan Plan Patient Disposition: HOME (Self Care) Discharge Disposition comment: Stable Prescriptions/Referrals Prescriptions/Med Rec: No Action triamterene-hydrochlorothiazid 37.5-25 mg capsule 1 cap feeding tube DAILY cyclobenzaprine 10 mg tablet 10 mg feeding tube QDAY PRN (Reason: muscle pain) 30 Days Qty: 30 0RF aspirin 81 mg Tablet,Delayed Release (Dr/Ec) 81 mg feeding tube DAILY 30 Days Qty: 30 0RF alprazolam 0.5 mg tablet 0.5 mg feeding tube HS 30 Days Qty: 30 0RF Patient Comments: TAKE 1 TABLET BY MOUTH EVERYDAY AT BEDTIME gabapentin 300 mg capsule 300 mg feeding tube HS 30 Days Qty: 30 0RF estradiol 2 mg tablet 2 mg feeding tube QDAY 30 Days Qty: 30 0RF ondansetron 4 mg tablet,disintegrating 4 mg feeding tube Q4HR PRN (Reason: Nausea or vomiting) Qty: 60 2RF fluoxetine 20 mg capsule 20 mg feeding tube QDAY 30 Days Qty: 30 0RF vitamin E 400 UNIT capsule 268 mg feeding tube QDAY 30 Days Qty: 30 0RF cholecalciferol (vitamin D3) [Vitamin D3] 1,000 UNIT tablet 25 mcg feeding tube QDAY 30 Days Qty: 30 0RF Referrals: Zeus Santos MD [Primary Care Provider, Family Practice] - In 1 week Problem List Clinical Impression: Anemia Patient/Caregiver Discharge Instructions Discharge Activity: activity as tolerated Education Materials: Anemia Additional Instructions: Thank you for the opportunity for serving you today. You are stable for discharged . You are advised to: Follow-up with your PCP in 1 to 2 days Return to ED for worsening of symptoms Print Language: Guatemalan Stand Alone Forms: Jodi Award Info., Patient Portal Info Letter PA/FARM EQUIPMENT ENGINE MECHANIC Supervising Physician PA/RENÉE Supervising Physician: MD Deepa
[2025-08-16 21:11] VITALS: BP 131/67; PULSE 78; RESP 17; TEMP 36.7; O2SAT 100
[2025-08-16 21:36] VITALS: BP 134/97; PULSE 82; RESP 20; TEMP 37.1; O2SAT 95
[2025-08-16 21:54] VITALS: BP 122/52; PULSE 77; RESP 20; TEMP 36.6; O2SAT 99
[2025-08-16 22:06] VITALS: BP 132/58; PULSE 82; RESP 20; TEMP 36.9; O2SAT 100
[2025-08-17 01:21] VITALS: BP 139/58; PULSE 82; RESP 18; TEMP 36.6; O2SAT 98
[2025-08-17 01:42] VITALS: BP 140/62; PULSE 85; RESP 14; TEMP 36.6; O2SAT 98
[2025-08-17 01:58] VITALS: BP 138/68; PULSE 85; RESP 17; TEMP 36.7; O2SAT 97
[2025-08-17 02:14] VITALS: BP 132/61; PULSE 82; RESP 16; TEMP 36.6; O2SAT 97
[2025-08-17 04:48] VITALS: BP 148/88; PULSE 89; RESP 18; TEMP 36.8; O2SAT 97
[2025-08-17 05:31] VITALS: BP 140/80; PULSE 70; RESP 14; TEMP 37; O2SAT 99
== END 2025-08-17 05:38 | disposition home or self-care (01) ==
PROVIDERS: Nurse Practitioner Primary Care; Emergency Provider Emergency Medicine; PCP Family Medicine
DX: D64.9 Anemia, unspecified (principal); R94.31 Abnormal electrocardiogram [ECG] [EKG]
CPT/HCPCS: 36415; 36430; 80053; 84484; 85025; 85610; 85730; 86850; 86900; 86901; 86923; 93005; 99284; P9016; A9270

== ENCOUNTER 2025-09-04 06:59 | Outpatient (RCR) | payer MEDICARE, SELFPAY ==
[2025-08-09 10:21] LABS: Ferritin 22 ng/mL (7.3-270.7); Iron 30 mcg/dL (50-170); Percent Iron Saturation 10 % (20-55); Total Iron Binding Capacity 283 mcg/dL (250-425); Unsaturated Iron Binding 253 (225-295)
[2025-08-09 10:50] LABS: Folate > 24.00 ng/mL (>5.38); Vitamin B12 608 pg/mL (211-911)
[2025-08-16 09:08] LABS: Basophils # (Auto) 0.0 Thou/mm3 (0.0-0.2); Basophils % (Auto) 1 % (0-2.5); Eosinophils # (Auto) 0.1 Thou/mm3 (0.0-0.5); Eosinophils % (Auto) 1 % (0-10); Immature Granulocytes Auto 0.06 Thou/mm3 (0.00-0.00); Lymphocytes # (Auto) 1.3 Thou/mm3 (1.0-4.8); Lymphocytes % (Auto) 17 % (10-50); Mean Corpuscular HGB Conc 32.8 g/dl (31.0-37.0); Mean Corpuscular Hemoglobin 30.0 pg (25.0-35.0); Mean Corpuscular Volume 92 fL (80-100); Monocytes # (Auto) 0.8 Thou/mm3 (0.0-0.8); Monocytes % (Auto) 10 % (0-12); Neutrophils # (Auto) 5.5 Thou/mm3 (1.8-7.7); Neutrophils % (Auto) 71 % (37-80); Nucleated Red Blood Cell # 0.00 Thou/mm3 (0.00-0.00); Nucleated Red Blood Cell % 0 /100 WBC (0); Platelet Count 371 Thou/mm3 (140-440); RDW Standard Deviation 47.9 fL (36.4-46.3); Red Blood Count 2.03 Miln/mm3 (4.00-5.20); White Blood Count 7.8 Thou/mm3 (3.6-11.0)
[2025-08-16 09:11] LABS: Hematocrit 18.6 % (36.0-46.0)
[2025-08-16 09:12] LABS: Hemoglobin 6.1 g/dL (12.0-16.0)
[2025-08-16 09:27] LABS: Alanine Aminotransferase 13 U/L (10-49); Albumin, Serum 3.5 gm/dL (3.4-4.8); Albumin/Globulin Ratio 1.5 (1.2-2.2); Alkaline Phosphatase 52 U/L (46-116); Anion Gap 10 (7-16); Aspartate Amino Transferase 18 U/L (0-34); BUN/Creatinine Ratio 25 Ratio (12-20); Bilirubin,Total 0.2 mg/dL (0.3-1.2); Blood Urea Nitrogen 28 mg/dL (9-23); Calcium 9.2 mg/dL (8.3-10.6); Calcium (Corrected) 9.6 mg/dL (8.5-10.1); Carbon Dioxide 24.8 mMol/L (20.0-31.0); Chloride 106 mMol/L (98-107); Creatinine (Component) 1.1 mg/dL (0.6-1.3); Globulin 2.3 gm/dL (2.3-3.5); Glucose 101 mg/dL (74-106); Osmolality,Calculated 286 (275-295); Potassium 3.8 mMol/L (3.4-5.1); Sodium 141 mMol/L (136-145); Total Protein 5.8 gm/dL (5.7-8.2); eGFR 51 See Note
[2025-08-17 09:48] LABS: Basophils # (Auto) 0.1 Thou/mm3 (0.0-0.2); Basophils % (Auto) 1 % (0-2.5); Eosinophils # (Auto) 0.0 Thou/mm3 (0.0-0.5); Eosinophils % (Auto) 1 % (0-10); Hematocrit 28.5 % (36.0-46.0); Hemoglobin 9.9 g/dL (12.0-16.0); Immature Granulocytes Auto 0.13 Thou/mm3 (0.00-0.00); Lymphocytes # (Auto) 1.3 Thou/mm3 (1.0-4.8); Lymphocytes % (Auto) 19 % (10-50); Mean Corpuscular HGB Conc 34.7 g/dl (31.0-37.0); Mean Corpuscular Hemoglobin 30.3 pg (25.0-35.0); Mean Corpuscular Volume 87 fL (80-100); Monocytes # (Auto) 0.6 Thou/mm3 (0.0-0.8); Monocytes % (Auto) 8 % (0-12); Neutrophils # (Auto) 5.0 Thou/mm3 (1.8-7.7); Neutrophils % (Auto) 70 % (37-80); Nucleated Red Blood Cell # 0.00 Thou/mm3 (0.00-0.00); Nucleated Red Blood Cell % 0 /100 WBC (0); Platelet Count 396 Thou/mm3 (140-440); RDW Standard Deviation 46.8 fL (36.4-46.3); Red Blood Count 3.27 Miln/mm3 (4.00-5.20); White Blood Count 7.2 Thou/mm3 (3.6-11.0)
[2025-08-22 13:56] LABS: Basophils # (Auto) 0.0 Thou/mm3 (0.0-0.2); Basophils % (Auto) 1 % (0-2.5); Eosinophils # (Auto) 0.0 Thou/mm3 (0.0-0.5); Eosinophils % (Auto) 1 % (0-10); Hematocrit 30.5 % (36.0-46.0); Hemoglobin 10.0 g/dL (12.0-16.0); Immature Granulocytes Auto 0.04 Thou/mm3 (0.00-0.00); Lymphocytes # (Auto) 1.5 Thou/mm3 (1.0-4.8); Lymphocytes % (Auto) 23 % (10-50); Mean Corpuscular HGB Conc 32.8 g/dl (31.0-37.0); Mean Corpuscular Hemoglobin 29.7 pg (25.0-35.0); Mean Corpuscular Volume 91 fL (80-100); Monocytes # (Auto) 0.4 Thou/mm3 (0.0-0.8); Monocytes % (Auto) 6 % (0-12); Neutrophils # (Auto) 4.4 Thou/mm3 (1.8-7.7); Neutrophils % (Auto) 69 % (37-80); Nucleated Red Blood Cell # 0.00 Thou/mm3 (0.00-0.00); Nucleated Red Blood Cell % 0 /100 WBC (0); Platelet Count 521 Thou/mm3 (140-440); RDW Standard Deviation 45.4 fL (36.4-46.3); Red Blood Count 3.37 Miln/mm3 (4.00-5.20); White Blood Count 6.3 Thou/mm3 (3.6-11.0)
[2025-08-22 14:23] LABS: Alanine Aminotransferase 16 U/L (10-49); Albumin, Serum 3.7 gm/dL (3.4-4.8); Albumin/Globulin Ratio 1.8 (1.2-2.2); Alkaline Phosphatase 66 U/L (46-116); Anion Gap 10 (7-16); Aspartate Amino Transferase 22 U/L (0-34); BUN/Creatinine Ratio 22 Ratio (12-20); Bilirubin,Total < 0.2 mg/dL (0.3-1.2); Blood Urea Nitrogen 24 mg/dL (9-23); Calcium 8.6 mg/dL (8.3-10.6); Calcium (Corrected) 8.8 mg/dL (8.5-10.1); Carbon Dioxide 23.5 mMol/L (20.0-31.0); Chloride 105 mMol/L (98-107); Creatinine (Component) 1.1 mg/dL (0.6-1.3); Globulin 2.1 gm/dL (2.3-3.5); Glucose 112 mg/dL (74-106); Osmolality,Calculated 280 (275-295); Potassium 4.1 mMol/L (3.4-5.1); Sodium 138 mMol/L (136-145); Total Protein 5.8 gm/dL (5.7-8.2); eGFR 51 See Note
[2025-09-01 11:17] LABS: Basophils # (Auto) 0.0 Thou/mm3 (0.0-0.2); Basophils % (Auto) 0 % (0-2.5); Eosinophils # (Auto) 0.0 Thou/mm3 (0.0-0.5); Eosinophils % (Auto) 0 % (0-10); Hematocrit 28.3 % (36.0-46.0); Hemoglobin 9.5 g/dL (12.0-16.0); Immature Granulocytes Auto 0.02 Thou/mm3 (0.00-0.00); Lymphocytes # (Auto) 1.5 Thou/mm3 (1.0-4.8); Lymphocytes % (Auto) 34 % (10-50); Mean Corpuscular HGB Conc 33.6 g/dl (31.0-37.0); Mean Corpuscular Hemoglobin 30.4 pg (25.0-35.0); Mean Corpuscular Volume 91 fL (80-100); Monocytes # (Auto) 0.5 Thou/mm3 (0.0-0.8); Monocytes % (Auto) 10 % (0-12); Neutrophils # (Auto) 2.5 Thou/mm3 (1.8-7.7); Neutrophils % (Auto) 55 % (37-80); Nucleated Red Blood Cell # 0.00 Thou/mm3 (0.00-0.00); Nucleated Red Blood Cell % 0 /100 WBC (0); Platelet Count 191 Thou/mm3 (140-440); RDW Standard Deviation 46.4 fL (36.4-46.3); Red Blood Count 3.12 Miln/mm3 (4.00-5.20); White Blood Count 4.5 Thou/mm3 (3.6-11.0)
[2025-09-01 11:42] LABS: Alanine Aminotransferase 12 U/L (10-49); Albumin, Serum 3.8 gm/dL (3.4-4.8); Albumin/Globulin Ratio 2.1 (1.2-2.2); Alkaline Phosphatase 70 U/L (46-116); Anion Gap 10 (7-16); Aspartate Amino Transferase 17 U/L (0-34); BUN/Creatinine Ratio 22 Ratio (12-20); Bilirubin,Total < 0.2 mg/dL (0.3-1.2); Blood Urea Nitrogen 22 mg/dL (9-23); Calcium 8.7 mg/dL (8.3-10.6); Calcium (Corrected) 8.9 mg/dL (8.5-10.1); Carbon Dioxide 27.5 mMol/L (20.0-31.0); Chloride 103 mMol/L (98-107); Creatinine (Component) 1.0 mg/dL (0.6-1.3); Globulin 1.8 gm/dL (2.3-3.5); Glucose 111 mg/dL (74-106); Osmolality,Calculated 283 (275-295); Potassium 4.4 mMol/L (3.4-5.1); Sodium 140 mMol/L (136-145); Total Protein 5.6 gm/dL (5.7-8.2); eGFR 57 See Note
== END 2025-09-08 23:59 | disposition home or self-care (01) ==
LOC: SCTC 06:59
PROVIDERS: PCP Family Medicine; Referring Provider Radiology Therapeutic Radiology; Visit Provider Internal Medicine Hematology & Oncology
DX: Z51.11 Encounter for antineoplastic chemotherapy (principal); C15.5 Malignant neoplasm of lower third of esophagus
CPT/HCPCS: 36591; 77470; 80053; 82607; 82728; 82746; 83540; 83550; 85025; 86850; 86900; 86901; 96365; 96367; 96368; 96375; 96413; 96417; 99212; A4216; J1100; J1434; J1642; J1756; J2405; J2919; J3490; J7040; J7050; J7060; J9045; J9267; A9270; G0463

== ENCOUNTER 2025-10-04 06:56 | Outpatient (RCR) | payer MEDICARE, SELFPAY ==
--- NOTE | 2025-09-12 15:01 | CTCSNOTE_ITS ---
[facility] [address] [place], [place] [address] CT Simulation Note Date: 09/12/2025 MR# [id number] Name: DYLAN SALDIVAR : 1945 (A) DIAGNOSIS: C15.5 Malignant neoplasm of lower third of esophagus (B) Patient was placed in supine position and used vaklok for immobilization purposes. (C) CT slices included chest (D) VMAT Will be needed for maximum sparing of adjacent normal critical structures. (E) Patient tolerated the simulation well and left the room in good condition. Electronically signed by: Patricio Arenas MD, JASONR 09/12/2025 2:59 PM
[2025-09-12 15:09] LABS: Basophils # (Auto) 0.0 Thou/mm3 (0.0-0.2); Basophils % (Auto) 0 % (0-2.5); Eosinophils # (Auto) 0.0 Thou/mm3 (0.0-0.5); Eosinophils % (Auto) 1 % (0-10); Hematocrit 25.5 % (36.0-46.0); Immature Granulocytes Auto 0.00 Thou/mm3 (0.00-0.00); Lymphocytes # (Auto) 1.3 Thou/mm3 (1.0-4.8); Lymphocytes % (Auto) 48 % (10-50); Mean Corpuscular HGB Conc 33.7 g/dl (31.0-37.0); Mean Corpuscular Hemoglobin 30.6 pg (25.0-35.0); Mean Corpuscular Volume 91 fL (80-100); Monocytes # (Auto) 0.1 Thou/mm3 (0.0-0.8); Monocytes % (Auto) 5 % (0-12); Neutrophils # (Auto) 1.3 Thou/mm3 (1.8-7.7); Neutrophils % (Auto) 46 % (37-80); Nucleated Red Blood Cell # 0.00 Thou/mm3 (0.00-0.00); Nucleated Red Blood Cell % 0 /100 WBC (0); Platelet Count 159 Thou/mm3 (140-440); RDW Standard Deviation 49.1 fL (36.4-46.3); Red Blood Count 2.81 Miln/mm3 (4.00-5.20); White Blood Count 2.7 Thou/mm3 (3.6-11.0)
[2025-09-12 15:10] LABS: Hemoglobin 8.6 g/dL (12.0-16.0)
[2025-09-12 15:21] LABS: Alanine Aminotransferase 18 U/L (10-49); Albumin, Serum 4.3 gm/dL (3.4-4.8); Albumin/Globulin Ratio 2.0 (1.2-2.2); Alkaline Phosphatase 68 U/L (46-116); Anion Gap 13 (7-16); Aspartate Amino Transferase 22 U/L (0-34); BUN/Creatinine Ratio 18 Ratio (12-20); Bilirubin,Total 0.2 mg/dL (0.3-1.2); Blood Urea Nitrogen 25 mg/dL (9-23); Calcium 9.6 mg/dL (8.3-10.6); Calcium (Corrected) 9.6 mg/dL (8.5-10.1); Carbon Dioxide 23.0 mMol/L (20.0-31.0); Chloride 102 mMol/L (98-107); Creatinine (Component) 1.4 mg/dL (0.6-1.3); Globulin 2.2 gm/dL (2.3-3.5); Glucose 109 mg/dL (74-106); Osmolality,Calculated 281 (275-295); Potassium 4.1 mMol/L (3.4-5.1); Sodium 138 mMol/L (136-145); Total Protein 6.5 gm/dL (5.7-8.2); eGFR 38 See Note
[2025-09-15 12:40] LABS: Basophils # (Auto) 0.0 Thou/mm3 (0.0-0.2); Basophils % (Auto) 1 % (0-2.5); Eosinophils # (Auto) 0.0 Thou/mm3 (0.0-0.5); Eosinophils % (Auto) 1 % (0-10); Hematocrit 23.3 % (36.0-46.0); Immature Granulocytes Auto 0.01 Thou/mm3 (0.00-0.00); Lymphocytes # (Auto) 1.1 Thou/mm3 (1.0-4.8); Lymphocytes % (Auto) 51 % (10-50); Mean Corpuscular HGB Conc 32.2 g/dl (31.0-37.0); Mean Corpuscular Hemoglobin 30.7 pg (25.0-35.0); Mean Corpuscular Volume 96 fL (80-100); Monocytes # (Auto) 0.2 Thou/mm3 (0.0-0.8); Monocytes % (Auto) 8 % (0-12); Neutrophils # (Auto) 0.8 Thou/mm3 (1.8-7.7); Neutrophils % (Auto) 39 % (37-80); Nucleated Red Blood Cell # 0.00 Thou/mm3 (0.00-0.00); Nucleated Red Blood Cell % 0 /100 WBC (0); Platelet Count 231 Thou/mm3 (140-440); RDW Standard Deviation 54.1 fL (36.4-46.3); Red Blood Count 2.44 Miln/mm3 (4.00-5.20); White Blood Count 2.2 Thou/mm3 (3.6-11.0)
[2025-09-15 12:43] LABS: Hemoglobin 7.5 g/dL (12.0-16.0)
[2025-09-15 13:00] LABS: Alanine Aminotransferase 10 U/L (10-49); Albumin, Serum 3.8 gm/dL (3.4-4.8); Albumin/Globulin Ratio 2.1 (1.2-2.2); Alkaline Phosphatase 62 U/L (46-116); Anion Gap 11 (7-16); Aspartate Amino Transferase 15 U/L (0-34); BUN/Creatinine Ratio 20 Ratio (12-20); Bilirubin,Total 0.2 mg/dL (0.3-1.2); Blood Urea Nitrogen 20 mg/dL (9-23); Calcium 8.8 mg/dL (8.3-10.6); Calcium (Corrected) 9.0 mg/dL (8.5-10.1); Carbon Dioxide 24.5 mMol/L (20.0-31.0); Chloride 104 mMol/L (98-107); Creatinine (Component) 1.0 mg/dL (0.6-1.3); Globulin 1.8 gm/dL (2.3-3.5); Glucose 109 mg/dL (74-106); Osmolality,Calculated 281 (275-295); Potassium 4.1 mMol/L (3.4-5.1); Sodium 139 mMol/L (136-145); Total Protein 5.6 gm/dL (5.7-8.2); eGFR 57 See Note
[2025-09-18 09:40] LABS: Basophils # (Auto) 0.0 Thou/mm3 (0.0-0.2); Basophils % (Auto) 0 % (0-2.5); Eosinophils # (Auto) 0.0 Thou/mm3 (0.0-0.5); Eosinophils % (Auto) 2 % (0-10); Hematocrit 23.4 % (36.0-46.0); Immature Granulocytes Auto 0.01 Thou/mm3 (0.00-0.00); Lymphocytes # (Auto) 1.5 Thou/mm3 (1.0-4.8); Lymphocytes % (Auto) 57 % (10-50); Mean Corpuscular HGB Conc 32.9 g/dl (31.0-37.0); Mean Corpuscular Hemoglobin 31.2 pg (25.0-35.0); Mean Corpuscular Volume 95 fL (80-100); Monocytes # (Auto) 0.3 Thou/mm3 (0.0-0.8); Monocytes % (Auto) 12 % (0-12); Neutrophils # (Auto) 0.8 Thou/mm3 (1.8-7.7); Neutrophils % (Auto) 29 % (37-80); Nucleated Red Blood Cell # 0.00 Thou/mm3 (0.00-0.00); Nucleated Red Blood Cell % 0 /100 WBC (0); Platelet Count 411 Thou/mm3 (140-440); RDW Standard Deviation 56.5 fL (36.4-46.3); Red Blood Count 2.47 Miln/mm3 (4.00-5.20); White Blood Count 2.7 Thou/mm3 (3.6-11.0)
[2025-09-18 09:43] LABS: Hemoglobin 7.7 g/dL (12.0-16.0)
[2025-09-26 14:15] LABS: Basophils # (Auto) 0.0 Thou/mm3 (0.0-0.2); Basophils % (Auto) 1 % (0-2.5); Eosinophils # (Auto) 0.1 Thou/mm3 (0.0-0.5); Eosinophils % (Auto) 1 % (0-10); Hematocrit 30.2 % (36.0-46.0); Hemoglobin 9.9 g/dL (12.0-16.0); Immature Granulocytes Auto 0.16 Thou/mm3 (0.00-0.00); Lymphocytes # (Auto) 2.7 Thou/mm3 (1.0-4.8); Lymphocytes % (Auto) 36 % (10-50); Mean Corpuscular HGB Conc 32.8 g/dl (31.0-37.0); Mean Corpuscular Hemoglobin 31.6 pg (25.0-35.0); Mean Corpuscular Volume 97 fL (80-100); Monocytes # (Auto) 1.0 Thou/mm3 (0.0-0.8); Monocytes % (Auto) 13 % (0-12); Neutrophils # (Auto) 3.6 Thou/mm3 (1.8-7.7); Neutrophils % (Auto) 48 % (37-80); Nucleated Red Blood Cell # 0.00 Thou/mm3 (0.00-0.00); Nucleated Red Blood Cell % 0 /100 WBC (0); Platelet Count 391 Thou/mm3 (140-440); RDW Standard Deviation 59.6 fL (36.4-46.3); Red Blood Count 3.13 Miln/mm3 (4.00-5.20); White Blood Count 7.6 Thou/mm3 (3.6-11.0)
[2025-09-26 14:43] LABS: Alanine Aminotransferase 8 U/L (10-49); Albumin, Serum 4.1 gm/dL (3.4-4.8); Albumin/Globulin Ratio 2.1 (1.2-2.2); Alkaline Phosphatase 68 U/L (46-116); Anion Gap 9 (7-16); Aspartate Amino Transferase 16 U/L (0-34); BUN/Creatinine Ratio 20 Ratio (12-20); Bilirubin,Total 0.2 mg/dL (0.3-1.2); Blood Urea Nitrogen 20 mg/dL (9-23); Calcium 8.9 mg/dL (8.3-10.6); Calcium (Corrected) 8.9 mg/dL (8.5-10.1); Carbon Dioxide 25.9 mMol/L (20.0-31.0); Chloride 106 mMol/L (98-107); Creatinine (Component) 1.0 mg/dL (0.6-1.3); Globulin 2.0 gm/dL (2.3-3.5); Glucose 91 mg/dL (74-106); Osmolality,Calculated 283 (275-295); Potassium 4.3 mMol/L (3.4-5.1); Sodium 141 mMol/L (136-145); Total Protein 6.1 gm/dL (5.7-8.2); eGFR 57 See Note
[2025-10-03 13:46] LABS: Basophils # (Auto) 0.1 Thou/mm3 (0.0-0.2); Basophils % (Auto) 1 % (0-2.5); Eosinophils # (Auto) 0.0 Thou/mm3 (0.0-0.5); Eosinophils % (Auto) 1 % (0-10); Hematocrit 28.9 % (36.0-46.0); Hemoglobin 9.6 g/dL (12.0-16.0); Immature Granulocytes Auto 0.04 Thou/mm3 (0.00-0.00); Lymphocytes # (Auto) 1.6 Thou/mm3 (1.0-4.8); Lymphocytes % (Auto) 27 % (10-50); Mean Corpuscular HGB Conc 33.2 g/dl (31.0-37.0); Mean Corpuscular Hemoglobin 31.3 pg (25.0-35.0); Mean Corpuscular Volume 94 fL (80-100); Monocytes # (Auto) 0.4 Thou/mm3 (0.0-0.8); Monocytes % (Auto) 7 % (0-12); Neutrophils # (Auto) 3.6 Thou/mm3 (1.8-7.7); Neutrophils % (Auto) 63 % (37-80); Nucleated Red Blood Cell # 0.00 Thou/mm3 (0.00-0.00); Nucleated Red Blood Cell % 0 /100 WBC (0); Platelet Count 343 Thou/mm3 (140-440); RDW Standard Deviation 56.3 fL (36.4-46.3); Red Blood Count 3.07 Miln/mm3 (4.00-5.20); White Blood Count 5.7 Thou/mm3 (3.6-11.0)
[2025-10-03 14:00] LABS: Alanine Aminotransferase 15 U/L (10-49); Albumin, Serum 4.1 gm/dL (3.4-4.8); Albumin/Globulin Ratio 1.8 (1.2-2.2); Alkaline Phosphatase 60 U/L (46-116); Anion Gap 8 (7-16); Aspartate Amino Transferase 24 U/L (0-34); BUN/Creatinine Ratio 27 Ratio (12-20); Bilirubin,Total 0.3 mg/dL (0.3-1.2); Blood Urea Nitrogen 27 mg/dL (9-23); Calcium 8.9 mg/dL (8.3-10.6); Calcium (Corrected) 8.9 mg/dL (8.5-10.1); Carbon Dioxide 26.6 mMol/L (20.0-31.0); Chloride 105 mMol/L (98-107); Creatinine (Component) 1.0 mg/dL (0.6-1.3); Globulin 2.3 gm/dL (2.3-3.5); Glucose 94 mg/dL (74-106); Osmolality,Calculated 284 (275-295); Potassium 4.5 mMol/L (3.4-5.1); Sodium 140 mMol/L (136-145); Total Protein 6.4 gm/dL (5.7-8.2); eGFR 57 See Note
== END 2025-10-08 23:59 | disposition home or self-care (01) ==
LOC: SCTC 06:56
PROVIDERS: PCP Family Medicine; Referring Provider Family Medicine; Visit Provider Internal Medicine Hematology & Oncology
DX: Z51.0 Encounter for antineoplastic radiation therapy (principal); Z51.11 Encounter for antineoplastic chemotherapy; C15.5 Malignant neoplasm of lower third of esophagus
CPT/HCPCS: 36415; 36430; 36591; 77014; 77290; 77300; 77301; 77334; 77336; 77338; 77385; 80053; 85025; 86850; 86900; 86901; 86923; 96365; 96367; 96372; 96375; 96413; 96417; A4216; J1100; J1434; J1642; J1756; J2405; J2919; J3490; J7040; J7050; J9045; J9267; P9016; Q5101; A9270

== ENCOUNTER 2025-11-08 07:55 | Outpatient (RCR) | payer MEDICARE, SELFPAY ==
--- NOTE | 2025-10-09 15:33 | CTCTRTNOTE_ITS ---
[facility] [address] [place], [place] [address] Weekly Management Date: 10/09/2025 ?? Name: DYLAN SALDIVAR : 1945 A. Patient is currently at 1440 cGy. Receiving concurrent Taxol carbo AUC2 B. Patient is tolerating treatment well. Some fatigue and appetite issues. Weight 109 3 pounds less than 1 week ago. Labs 10/03/2025 5.7 WBC 3600 neutrophils 9.6 hemoglobin platelets 3 43,000 C. Resume radiation therapy. Electronically signed by: Patricio Arenas M.D. 10/09/2025 3:31 PM
[2025-10-10 14:07] LABS: Basophils # (Auto) 0.0 Thou/mm3 (0.0-0.2); Basophils % (Auto) 1 % (0-2.5); Eosinophils # (Auto) 0.1 Thou/mm3 (0.0-0.5); Eosinophils % (Auto) 2 % (0-10); Hematocrit 29.3 % (36.0-46.0); Hemoglobin 10.0 g/dL (12.0-16.0); Immature Granulocytes Auto 0.02 Thou/mm3 (0.00-0.00); Lymphocytes # (Auto) 1.0 Thou/mm3 (1.0-4.8); Lymphocytes % (Auto) 23 % (10-50); Mean Corpuscular HGB Conc 34.1 g/dl (31.0-37.0); Mean Corpuscular Hemoglobin 32.7 pg (25.0-35.0); Mean Corpuscular Volume 96 fL (80-100); Monocytes # (Auto) 0.5 Thou/mm3 (0.0-0.8); Monocytes % (Auto) 11 % (0-12); Neutrophils # (Auto) 2.7 Thou/mm3 (1.8-7.7); Neutrophils % (Auto) 63 % (37-80); Nucleated Red Blood Cell # 0.00 Thou/mm3 (0.00-0.00); Nucleated Red Blood Cell % 0 /100 WBC (0); Platelet Count 314 Thou/mm3 (140-440); RDW Standard Deviation 58.4 fL (36.4-46.3); Red Blood Count 3.06 Miln/mm3 (4.00-5.20); White Blood Count 4.3 Thou/mm3 (3.6-11.0)
[2025-10-10 14:48] LABS: Alanine Aminotransferase 16 U/L (10-49); Albumin, Serum 4.3 gm/dL (3.4-4.8); Albumin/Globulin Ratio 1.8 (1.2-2.2); Alkaline Phosphatase 66 U/L (46-116); Anion Gap 12 (7-16); Aspartate Amino Transferase 23 U/L (0-34); BUN/Creatinine Ratio 24 Ratio (12-20); Bilirubin,Total 0.2 mg/dL (0.3-1.2); Blood Urea Nitrogen 26 mg/dL (9-23); Calcium 9.0 mg/dL (8.3-10.6); Calcium (Corrected) 9.0 mg/dL (8.5-10.1); Carbon Dioxide 24.0 mMol/L (20.0-31.0); Chloride 107 mMol/L (98-107); Creatinine (Component) 1.1 mg/dL (0.6-1.3); Globulin 2.4 gm/dL (2.3-3.5); Glucose 91 mg/dL (74-106); Osmolality,Calculated 289 (275-295); Potassium 4.2 mMol/L (3.4-5.1); Sodium 143 mMol/L (136-145); Total Protein 6.7 gm/dL (5.7-8.2); eGFR 51 See Note
[2025-10-17 14:35] LABS: Basophils # (Auto) 0.0 Thou/mm3 (0.0-0.2); Basophils % (Auto) 1 % (0-2.5); Eosinophils # (Auto) 0.1 Thou/mm3 (0.0-0.5); Eosinophils % (Auto) 2 % (0-10); Hematocrit 26.6 % (36.0-46.0); Hemoglobin 9.0 g/dL (12.0-16.0); Immature Granulocytes Auto 0.02 Thou/mm3 (0.00-0.00); Lymphocytes # (Auto) 0.7 Thou/mm3 (1.0-4.8); Lymphocytes % (Auto) 19 % (10-50); Mean Corpuscular HGB Conc 33.8 g/dl (31.0-37.0); Mean Corpuscular Hemoglobin 33.0 pg (25.0-35.0); Mean Corpuscular Volume 97 fL (80-100); Monocytes # (Auto) 0.4 Thou/mm3 (0.0-0.8); Monocytes % (Auto) 10 % (0-12); Neutrophils # (Auto) 2.5 Thou/mm3 (1.8-7.7); Neutrophils % (Auto) 68 % (37-80); Nucleated Red Blood Cell # 0.00 Thou/mm3 (0.00-0.00); Nucleated Red Blood Cell % 0 /100 WBC (0); Platelet Count 258 Thou/mm3 (140-440); RDW Standard Deviation 61.9 fL (36.4-46.3); Red Blood Count 2.73 Miln/mm3 (4.00-5.20); White Blood Count 3.7 Thou/mm3 (3.6-11.0)
[2025-10-17 15:00] LABS: Alanine Aminotransferase 17 U/L (10-49); Albumin, Serum 4.0 gm/dL (3.4-4.8); Albumin/Globulin Ratio 1.7 (1.2-2.2); Alkaline Phosphatase 63 U/L (46-116); Anion Gap 10 (7-16); Aspartate Amino Transferase 25 U/L (0-34); BUN/Creatinine Ratio 25 Ratio (12-20); Bilirubin,Total 0.2 mg/dL (0.3-1.2); Blood Urea Nitrogen 25 mg/dL (9-23); Calcium 8.7 mg/dL (8.3-10.6); Calcium (Corrected) 8.7 mg/dL (8.5-10.1); Carbon Dioxide 24.8 mMol/L (20.0-31.0); Chloride 109 mMol/L (98-107); Creatinine (Component) 1.0 mg/dL (0.6-1.3); Globulin 2.4 gm/dL (2.3-3.5); Glucose 120 mg/dL (74-106); Osmolality,Calculated 292 (275-295); Potassium 3.9 mMol/L (3.4-5.1); Sodium 144 mMol/L (136-145); Total Protein 6.4 gm/dL (5.7-8.2); eGFR 57 See Note
[2025-10-24 14:29] LABS: Basophils # (Auto) 0.0 Thou/mm3 (0.0-0.2); Basophils % (Auto) 1 % (0-2.5); Eosinophils # (Auto) 0.1 Thou/mm3 (0.0-0.5); Eosinophils % (Auto) 2 % (0-10); Hematocrit 28.8 % (36.0-46.0); Hemoglobin 9.6 g/dL (12.0-16.0); Immature Granulocytes Auto 0.02 Thou/mm3 (0.00-0.00); Lymphocytes # (Auto) 0.7 Thou/mm3 (1.0-4.8); Lymphocytes % (Auto) 27 % (10-50); Mean Corpuscular HGB Conc 33.3 g/dl (31.0-37.0); Mean Corpuscular Hemoglobin 32.8 pg (25.0-35.0); Mean Corpuscular Volume 98 fL (80-100); Monocytes # (Auto) 0.3 Thou/mm3 (0.0-0.8); Monocytes % (Auto) 12 % (0-12); Neutrophils # (Auto) 1.5 Thou/mm3 (1.8-7.7); Neutrophils % (Auto) 58 % (37-80); Nucleated Red Blood Cell # 0.00 Thou/mm3 (0.00-0.00); Nucleated Red Blood Cell % 0 /100 WBC (0); Platelet Count 198 Thou/mm3 (140-440); RDW Standard Deviation 65.1 fL (36.4-46.3); Red Blood Count 2.93 Miln/mm3 (4.00-5.20); White Blood Count 2.7 Thou/mm3 (3.6-11.0)
[2025-10-24 14:54] LABS: Alanine Aminotransferase 24 U/L (10-49); Albumin, Serum 4.2 gm/dL (3.4-4.8); Albumin/Globulin Ratio 1.8 (1.2-2.2); Alkaline Phosphatase 68 U/L (46-116); Anion Gap 10 (7-16); Aspartate Amino Transferase 27 U/L (0-34); BUN/Creatinine Ratio 22 Ratio (12-20); Bilirubin,Total 0.2 mg/dL (0.3-1.2); Blood Urea Nitrogen 22 mg/dL (9-23); Calcium 8.9 mg/dL (8.3-10.6); Calcium (Corrected) 8.9 mg/dL (8.5-10.1); Carbon Dioxide 26.2 mMol/L (20.0-31.0); Chloride 106 mMol/L (98-107); Creatinine (Component) 1.0 mg/dL (0.6-1.3); Globulin 2.4 gm/dL (2.3-3.5); Glucose 132 mg/dL (74-106); Osmolality,Calculated 288 (275-295); Potassium 3.8 mMol/L (3.4-5.1); Sodium 142 mMol/L (136-145); Total Protein 6.6 gm/dL (5.7-8.2); eGFR 57 See Note
[2025-10-31 14:27] LABS: Basophils # (Auto) 0.0 Thou/mm3 (0.0-0.2); Basophils % (Auto) 1 % (0-2.5); Eosinophils # (Auto) 0.1 Thou/mm3 (0.0-0.5); Eosinophils % (Auto) 4 % (0-10); Hematocrit 26.9 % (36.0-46.0); Hemoglobin 9.2 g/dL (12.0-16.0); Immature Granulocytes Auto 0.03 Thou/mm3 (0.00-0.00); Lymphocytes # (Auto) 0.6 Thou/mm3 (1.0-4.8); Lymphocytes % (Auto) 29 % (10-50); Mean Corpuscular HGB Conc 34.2 g/dl (31.0-37.0); Mean Corpuscular Hemoglobin 33.3 pg (25.0-35.0); Mean Corpuscular Volume 98 fL (80-100); Monocytes # (Auto) 0.2 Thou/mm3 (0.0-0.8); Monocytes % (Auto) 9 % (0-12); Neutrophils # (Auto) 1.2 Thou/mm3 (1.8-7.7); Neutrophils % (Auto) 56 % (37-80); Nucleated Red Blood Cell # 0.00 Thou/mm3 (0.00-0.00); Nucleated Red Blood Cell % 0 /100 WBC (0); Platelet Count 138 Thou/mm3 (140-440); RDW Standard Deviation 63.9 fL (36.4-46.3); Red Blood Count 2.76 Miln/mm3 (4.00-5.20); White Blood Count 2.1 Thou/mm3 (3.6-11.0)
[2025-10-31 14:47] LABS: Alanine Aminotransferase 28 U/L (10-49); Albumin, Serum 3.9 gm/dL (3.4-4.8); Albumin/Globulin Ratio 1.6 (1.2-2.2); Alkaline Phosphatase 67 U/L (46-116); Anion Gap 10 (7-16); Aspartate Amino Transferase 31 U/L (0-34); BUN/Creatinine Ratio 20 Ratio (12-20); Bilirubin,Total 0.3 mg/dL (0.3-1.2); Blood Urea Nitrogen 20 mg/dL (9-23); Calcium 8.9 mg/dL (8.3-10.6); Calcium (Corrected) 9.0 mg/dL (8.5-10.1); Carbon Dioxide 26.0 mMol/L (20.0-31.0); Chloride 107 mMol/L (98-107); Creatinine (Component) 1.0 mg/dL (0.6-1.3); Globulin 2.5 gm/dL (2.3-3.5); Glucose 105 mg/dL (74-106); Osmolality,Calculated 287 (275-295); Potassium 3.9 mMol/L (3.4-5.1); Sodium 143 mMol/L (136-145); Total Protein 6.4 gm/dL (5.7-8.2); eGFR 57 See Note
[2025-11-01 10:33] LABS: Vitamin B12 659 pg/mL (211-911)
[2025-11-06 16:41] LABS: Basophils # (Auto) 0.0 Thou/mm3 (0.0-0.2); Basophils % (Auto) 1 % (0-2.5); Eosinophils # (Auto) 0.0 Thou/mm3 (0.0-0.5); Eosinophils % (Auto) 3 % (0-10); Hematocrit 27.9 % (36.0-46.0); Hemoglobin 9.5 g/dL (12.0-16.0); Immature Granulocytes Auto 0.04 Thou/mm3 (0.00-0.00); Lymphocytes # (Auto) 0.4 Thou/mm3 (1.0-4.8); Lymphocytes % (Auto) 33 % (10-50); Mean Corpuscular HGB Conc 34.1 g/dl (31.0-37.0); Mean Corpuscular Hemoglobin 33.5 pg (25.0-35.0); Mean Corpuscular Volume 98 fL (80-100); Monocytes # (Auto) 0.1 Thou/mm3 (0.0-0.8); Monocytes % (Auto) 8 % (0-12); Neutrophils # (Auto) 0.6 Thou/mm3 (1.8-7.7); Neutrophils % (Auto) 52 % (37-80); Nucleated Red Blood Cell # 0.00 Thou/mm3 (0.00-0.00); Nucleated Red Blood Cell % 0 /100 WBC (0); Platelet Count 146 Thou/mm3 (140-440); RDW Standard Deviation 63.2 fL (36.4-46.3); Red Blood Count 2.84 Miln/mm3 (4.00-5.20)
[2025-11-06 16:51] LABS: White Blood Count 1.1 Thou/mm3 (3.6-11.0)
[2025-11-06 17:00] LABS: Alanine Aminotransferase 14 U/L (10-49); Albumin, Serum 4.1 gm/dL (3.4-4.8); Albumin/Globulin Ratio 1.6 (1.2-2.2); Alkaline Phosphatase 69 U/L (46-116); Anion Gap 13 (7-16); Aspartate Amino Transferase 25 U/L (0-34); BUN/Creatinine Ratio 18 Ratio (12-20); Bilirubin,Total 0.4 mg/dL (0.3-1.2); Blood Urea Nitrogen 18 mg/dL (9-23); Calcium 9.2 mg/dL (8.3-10.6); Calcium (Corrected) 9.2 mg/dL (8.5-10.1); Carbon Dioxide 23.1 mMol/L (20.0-31.0); Chloride 105 mMol/L (98-107); Creatinine (Component) 1.0 mg/dL (0.6-1.3); Globulin 2.6 gm/dL (2.3-3.5); Glucose 103 mg/dL (74-106); Osmolality,Calculated 283 (275-295); Potassium 4.2 mMol/L (3.4-5.1); Sodium 141 mMol/L (136-145); Total Protein 6.7 gm/dL (5.7-8.2); eGFR 57 See Note
--- NOTE | 2025-11-07 03:25 | CTCFLWUP_ITS ---
Patient: DYLAN MARC : 1945 Page 2 of 2 FOLLOW UP NOTE DATE OF SERVICE: 11/06/2025 NAME: DYLAN MARC ACCOUNT: [id number] : 1945 AGE: 80 INTERVAL HISTORY: Patient is tolerating weekly carbo /taxol . swallowing is better and yet to start radiation. ONCOLOGY HISTORY:?[facility] Oncology Hx? DIAGNOSIS: Malignant neoplasm of lower third of esophagus [ICD10] C15.5 DATE OF DIAGNOSIS: 03/11/2025 STAGE/TNM: Adenocarcinoma invasive moderate to poorly differentiated Mismatch repair proteins have no loss of expression TREATMENT HISTORY: Care?Plan Start?Date Cycle Day Intent FLOT?neoadjuvant 06/12/2025 1 14 Induction-Primary Taxol?45?mg/m*2?+?Carbo?AUC?2?+?Concurrent?XRT 07/26/2025 1 7 Induction-Primary VENOfer?200mg?IV?wkly?for?10?weeks 09/01/2025 1 70 Palliative HISTORY OF PRESENT ILLNESS: 80-year-old female was seen in the clinic. Patient was diagnosed with the lower third of the esophageal cancer in March 2025. At that time she had nausea vomiting and electrolyte imbalance and CT scan showed multiple soft noncalcified pulmonary nodules both lungs L as malignant appearing intrinsic severe stenosis 35 cm from the incisor. To Dr. Yang saw Ms. Marc and dilatation was performed along with the biopsy. Pathology revealed invasive moderate to poorly differentiated adenocarcinoma. HER2 was negative by FISH Patient have refused to go to [facility] or [facility] for possible curative surgery. Patient want to get treatment only at our facility. Reviewed radiation oncology note and is very unclear if patient is planned for radiation or not. There is no recent imaging in the chart to see patient's current status. OTHER MEDICAL HISTORY/CONDITIONS: Adenocarcinoma esophagus - dx 03/11/25 HTN Restlss legs syndrome/ cramping legs Hc [place] Fever - 1979' G-tube placement PC placement Back surgeries x 2 ANDRES; BSO - 1976 Several volodymyr breast sugeries for benign cycts- starting age 21 Appendectomy - 1964 T and A - as child FAMILY HISTORY: Patient?denies?family?cancer?history. 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 Compazine - 5 mg 1 tab every 6 hours 2. dexamethasone - 4 mg 2 tab twice a day 3. Emend - 125 mg (1)- 80 mg (2) 1 Pack Daily 4. estradiol - 2 mg 1 tab Daily 5. gabapentin - 100 mg 1 tab Three times a day 6. ondansetron - 8 mg 1 tab every 8 hours 7. Protonix - 40 mg 1 tab Daily 8. PROzac - 40 mg 1 Capsule Daily 9. Vitamin D2 - 1,000 unit 1 Capsule Daily 10. vitamin E - 400 unit 1 tab Daily 11. Xanax - 0.5 mg 1 tab Every day before sleep?Palabra Meds? Medications Last Reconciled by Aleyda Baldwin LVN on 11/06/2025 ALLERGIES: No Known Drug Allergies REVIEW OF SYSTEMS: A complete 14-point review of systems was performed and is negative except as noted in interval history. PHYSICAL EXAMINATION:?CloneBlock PE? VITAL SIGNS: Temperature?98, B/P?157/81, Oxygen?Saturation?98% Weight?99?lbs (Change?since?11/01/25:?-7?lbs) PAIN: 0 - No pain ECOG Performance Status: 3 - Symptomatic; limited self-care; spends >50% of time in bed, not bedridden GENERAL APPEARANCE: Appears well, in no apparent distress, appropriately interactive. HEENT: Normocephalic, no temporal wasting, normal conjunctiva, no scleral icterus, normal hearing, lips without lesions, neck normal range of motion. CARDIOVASCULAR: Not assessed. PULMONARY: Normal respiratory effort, no respiratory distress or use of accessory muscles, speaking in full sentences, no tachypnea. EXTREMITIES: No pedal edema or cyanosis. SKIN: Normal skin appearance. NEUROLOGIC: Alert and oriented x4. PSHYCHIATRIC: Appropriate affect, mood normal, behavior normal, intact thought and speech. LABORATORY DATA: I have personally reviewed and interpreted each of the patient?s relevant lab tests, abnormal findings are below: Date 10/31/25 11/06/25 ??WHITE?BLOOD?COUNT?(Thou/mm3) 2.1?L 1.1?LL ??RED?BLOOD?COUNT?(Miln/mm3) 2.76?L 2.84?L ??HEMOGLOBIN?(gm/dl) 9.2?L 9.5?L ??HEMATOCRIT?(%) 26.9?L 27.9?L ??PLATELET?COUNT?(Thou/mm3) 138?L 146 ??NEUTROPHILS?%,?AUTO?(%) 56 52 ??LYMPH?%,?AUTO?(%) 29 33 ??NEUTROPHILS,?AUTO?(Thou/mm3) 1.2?L 0.6?L ??GLUCOSE,RANDOM?(mg/dL) 105 103 ??BLOOD?UREA?NITROGEN?(mg/dL) 20 18 ??CREATININE?(mg/dL) 1.00 1.00 ??SODIUM?(mmol/L) 143 141 ??POTASSIUM?(mmol/L) 3.9 4.2 ??CHLORIDE?(mmol/L) 107 105 ??CrCl?(CandG)?(ml/min) 33.74 31.81 ??AST/SGOT?(Unit/L) 31 25 ??ALT/SGPT?(Unit/L) 28 14 ??ALKALINE?PHOSPHATASE?(Unit/L) 67 69 ??BILIRUBIN,?TOTAL?(mg/dL) 0.3 0.4 ??PROTEIN?TOTAL?(gm/dl) 6.4 6.7 ??ALBUMIN,?SERUM?(gm/dl) 3.9 4.1 ??GLOBULIN?(gm/dl) 2.5 2.6 ??ALBUMIN/GLOBULIN?RATIO 1.6 1.6 ??CALCIUM,?SERUM?(mg/dL) 8.9 9.2 ??CALCIUM?SERUM?(CORRECTED)?(mg/dL) 9.0 9.2 ASSESSMENT/PLAN:?Ha Barraza Assessment/Plan? 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 weekly?appropriate rkeahytf-su-klds regimen for an 80-year-old non-surgical candidate[1] Prognosis:?Median overall survival 13?22 months with 2-year overall survival 30?42% for elderly patients receiving definitive chemoradiation[2-4] Biomarker Status:?MMR-proficient excludes MSI-H/dMMR-directed immunotherapy options[1] PLAN 1. Complete Definitive Chemoradiation ? Continue weekly carboplatin (AUC 2) and paclitaxel (45 mg/m?) with concurrent radiation therapy as planned[1] ? Monitor for grade 3-4 toxicities: neutropenia (24.5%), esophagitis (4.6%), thrombocytopenia (4.6%)[2] ? Provide proactive supportive care for radiation esophagitis and nutritional support 2. Response Assessment (5?8 weeks post-treatment completion)[1] ? FDG-PET/CT?(preferred imaging modality)[1][5] ? CT chest/abdomen with oral and IV contrast?(not required if PET/CT performed)[1] ? EGD with biopsy?to assess for residual disease[1][6] 3. Management Based on Response Assessment[1] If no evidence of disease (complete clinical response): ? Observation?(preferred)[1][7-8] ? Salvage esophagectomy reserved for locoregional recurrence if medically operable[1][8] If persistent local disease: ? Esophagectomy?(preferred) if resectable and medically operable?requires careful assessment of surgical risk in 80-year-old patient[1][9] ? Palliative management?if unresectable or medically inoperable[1] If new metastatic disease: ? Palliative systemic therapy:?fluoropyrimidine/oxaliplatin ? checkpoint inhibitor (if PD-L1 CPS =1) or best supportive care[1] 4. Surveillance Strategy (if complete clinical response achieved)[1] ? History and physical examination:?Every 3?6 months for first 2 years, then every 6?12 months for years 3?5[1] ? CT chest/abdomen with contrast:?Every 3?6 months for first 2 years, then annually for up to 5 years[1] ? EGD with biopsy:?Every 3?6 months for first 2 years, then annually for 3 more years[1] ? Nutritional assessment?and management of esophageal stenosis (occurs in ~20% of patients)[3] 5. Supportive Care ? Nutritional support:?Consider feeding tube if dysphagia persists or worsens and IV fluids . ? Home health support ordered ? Esophageal dilation?for stenosis as needed (expected in ~20% of patients as late complication)[3] ? Pain management?and symptom control ? Monitoring for late toxicities:?esophageal stricture, cardiac toxicity, pulmonary fibrosis 6. Locoregional Recurrence Management (if occurs during surveillance)[1] ? Salvage esophagectomy?(preferred) if resectable and medically operable[1][8] ? Palliative management?if unresectable or medically inoperable[1] 7. Considerations ? Surgery not initially planned?given age (80 years) and likely medical comorbidities, but salvage esophagectomy remains option if excellent response and good performance status[4][9] ? Active surveillance approach?after complete clinical response has comparable overall survival to immediate surgery in select patients[7-8] ? Most recurrences occur within first 2 years?(95%), justifying intensive surveillance during this period[1][10] ORDERS: Order # Description [id number] Follow Up Appointment [id number] CT Scan + Chest + Abdomen and Pelvis + With W/O Contrast RETURN TO CLINIC: I reviewed the diagnosis, prognosis, and recommended treatment/procedure options with the patient (and/or their legal telecommunications sales representative), including the potential benefits, risks, side effects and alternative therapies. We also discussed the option of no treatment and the possibility of clinical trial participation, if applicable. All questions were addressed, and they demonstrated understanding. They provided informed consent to proceed with the proposed plan of care. BILLING AND COMPLIANCE: I reviewed external records from providers outside my specialty as summarized above. I spent a total of 50 minutes on this patient?s care on the day of their visit excluding time spent related to any billed procedures. This time includes time spent with the patient as well as time spent documenting in the medical record, reviewing patients records and tests, obtaining history, placing orders, communicating with other healthcare professionals, counseling the patient, family or caregiver, and/or care coordination for the diagnoses above. Electronically Signed by: Lalo Barraza MD T: 3:23 AM CC: Patricio?SIERRA Arenas PCP: Zeus Santos Referring: Zeus Santos This document was completed utilizing speech recognition software. Grammatical errors, random word insertions, pronoun errors, and incomplete sentences are an occasional consequence of this system due to software limitations, ambient noise, and hardware issues. Any formal questions or concerns about the content, text or information contained within the body of this dictation should be directly addressed to the provider for clarification.
== END 2025-11-08 23:59 | disposition home or self-care (01) ==
LOC: SCTC 07:55
PROVIDERS: PCP Family Medicine; Referring Provider Family Medicine; Visit Provider Internal Medicine Hematology & Oncology
DX: Z51.0 Encounter for antineoplastic radiation therapy (principal); Z51.11 Encounter for antineoplastic chemotherapy; C15.5 Malignant neoplasm of lower third of esophagus; R53.83 Other fatigue; R11.2 Nausea with vomiting, unspecified
CPT/HCPCS: 36591; 77336; 77385; 77407; 80053; 82607; 85025; 86850; 86900; 86901; 96365; 96366; 96367; 96375; 96413; 96417; 96549; A4216; J1100; J1434; J1642; J1756; J2405; J2919; J3490; J7030; J7040; J7050; J9045; J9267; A9270